=== PATIENT | female | born 1945 | race Caucasian/White ===

== ENCOUNTER 2022-11-16 21:30 | Emergency (ER) | payer MEDICARE, MEDICAID, SELFPAY ==
[2022-11-16 21:31] VITALS: BP 145/66; PULSE 85; RESP 16; TEMP 36.4; O2SAT 97; BMI 32.5
--- NOTE | 2022-11-16 21:42 | CTR_ITS ---
PROCEDURE INFORMATION: Exam: CT Head Without Contrast Exam date and time: 11/16/2022 9:52 PM Age: 77 years old Clinical indication: Injury or trauma; Laceration; Consciousness not specified; Without residual foreign body; Injury details: PT arrived via [facility] from [facility] with the C/O a fall. PT was found in the floor today by nursing staff with a lac to her forehead TECHNIQUE: Imaging protocol: Computed tomography of the head without contrast. Radiation optimization: All CT scans at this facility use at least one of these dose optimization techniques: automated exposure control; mA and/or kV adjustment per patient size (includes targeted exams where dose is matched to clinical indication); or iterative reconstruction. REPORTING DATA: Count of CT and Cardiac NM exams in prior 12 months: This patient has received 0 known CTs and 0 known cardiac nuclear medicine studies in the 12 months prior to the current study. COMPARISON: No relevant prior studies available. RADIATION DOSE METRICS: Total DLP (mGy-cm): 1137.68 FINDINGS: Brain: There is no intra or extra axial mass or collection noted. There is good valdovinos-white matter differentiation. There is no midline shift. There is evidence of cerebral atrophy with prominence of the sulci, this is age-appropriate. 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 There is calcification of the choroid plexus bilaterally, there is no intraventricular bleed. There is no evidence cerebellar herniation. Cerebral ventricles: The ventricles are prominent with no evidence of intraventricular bleed. The prominence is secondary to the cerebral atrophy. Paranasal sinuses: The visualized paranasal sinuses are well aerated. The mastoid air cells are aerated. The ossicles are normal. Mastoid air cells: See Paranasal sinuses finding. Orbital cavities: The globes are intact. Bones/joints: See Paranasal sinuses finding. Soft tissues: There is mild soft tissue swelling noted in the left frontal region. CT/CT head wo con* [id number] IMPRESSION: No evidence of acute intracranial disease
--- NOTE | 2022-11-16 21:44 | W.ED.FALL ---
HPI - Fall General: Chief Complaint: Fall Stated Complaint: FALL Time Seen by Provider: 11/16/22 21:34 Source: patient and EMS Mode of arrival: EMS Limitations: no limitations History of Present Illness: 77-year-old female is here from a shelter she had been fell on the floor after a fall she does have a laceration to her head complains of a slight headache unknown of had LOC she denies any pain elsewhere denies any neck pain or extremity pain. Full history from patient is difficult as she is demented Associated symptoms-after fall: Reports headache(s); Denies abdominal pain, chest pain or neck pain Review of Systems Const: Denies: fever(s) or chills Eyes: Denies: eye discomfort ENMT: Denies: throat pain or dental pain Card: Denies: chest pain Resp: Denies: dyspnea GI: Denies: abdominal pain, nausea, vomiting or diarrhea Musc: Denies: neck pain or back pain Skin/Breast: Denies: rash Neuro: Reports: headache(s) Physical Exam Const: COMMON NORMALS: no acute distress and healthy appearing; negative for patient oriented x3 HENMT: OTHER: 3 cm laceration to forehead Eye: COMMON NORMALS: Equal, round and reactive pupils present and EOMs intact bilaterally PUPIL: Yes Equal, round and reactive pupils present Neck/C-Spine: COMMON NORMALS: full ROM and supple CERVICAL SPINE: Yes cervical ROM normal, No pain with cervical ROM and No Cervical spine tenderness Chest: COMMONS NORMALS: normal inspection of the chest and normal palpation of entire chest wall Resp: COMMON NORMALS: normal respiratory effort, No retractions, No use of accessory muscles and clear to auscultation bilaterally AUSCULTATION: clear to auscultation bilaterally Cardio: COMMON NORMALS: regular rate, regular rhythm and No murmurs present (Cardio) RATE: regular rate RHYTHM: regular rhythm GI: COMMON NORMALS: Normal to inspection, nondistended, normoactive bowel sounds present, Soft to palpation, non-tender and no masses PALPATION: Yes Soft to palpation Extremity: COMMON NORMALS: normal to inspection and full ROM Neuro: COMMON NORMALS: moves all extremities and no focal motor deficits; negative for patient oriented x3 Psych: COMMON NORMALS: Normal thought process present and cooperative; negative for mental status grossly normal THOUGHT PROCESS: Normal thought process present Skin: COMMON NORMALS: no rashes or lesions noted and no wounds GENERAL SKIN EXAM: no rashes or lesions noted Procedures Laceration Laceration 1: Site: face Side (If applicable): left Size (cm): 3 Description: linear Depth: simple, single layer Pre-repair: wound explored and irrigated extensively Skin layer closed with: other (dermabond) Course Vital Signs: Vital signs: Vital Signs Temperature 97.5 F L 11/16/22 21:31 Pulse Rate 85 11/16/22 21:31 Respiratory Rate 16 11/16/22 21:31 Blood Pressure 145/66 11/16/22 21:31 Pulse Oximetry 97 11/16/22 21:31 Oxygen Delivery Me thod Room Air 11/16/22 21:31 MDM - Fall Medical Decision Making Patient presented head laceration from a fall head CT is normal did repair the laceration with tissue adhesive she is stable for discharge back to shelter Lab Data Radiology Impressions Head CT 11/16/22 21:42 IMPRESSION: No evidence of acute intracranial disease Discharge Plan Discharge Patient Disposition: Home Clinical Impression: Laceration of head, Fall Condition: Stable Prescriptions: No Action acetaminophen 650 mg PO Q4-5H PRN (Reason: Fever pain) bisacodyl 10 mg Suppository [place] PRN (Reason: Constipation) bisacodyl 5 mg Tablet,Delayed Release (Dr/Ec) 10 mg PO DAILY PRN (Reason: Constipation) citalopram 20 mg Tablet 20 mg PO DAILY docusate sodium 100 mg Tablet 100 mg PO DAILY Levemir FlexPen 100 unit/mL (3 mL) Insulin Pen 40 unit SUBCUT Rx Instructions: at bedtime lorazepam 0.5 mg Tablet 0.5 mg lovastatin 10 mg Tablet 5 mg PO DAILY metformin 1,000 mg Tablet 1,000 mg Milk of Magnesia 400 mg/5 mL Suspension 30 ml PO DAILY PRN (Reason: Constipation) Novolog PenFill U-100 Insulin 100 unit/mL Cartridge SUBCUT Rx Instructions: sliding scale before meals omeprazole 20 mg Capsule,Delayed Release(Dr/Ec) TwoCal HN Liquid 60 ea PO 3XD Discharge Orders: Discharge ED (Routine); Ordered 11/16/22 Ordered By: Madonna Ballard Referrals: Shikha Campbell MD [Primary Care Provider] - Discharge Diet: Advance as tolerated Discharge Activity: Resume usual activity Patient Instructions: Head Injury (ED) Coding Level of Care Code ED Coin Box Inspector for Chg Fwd
[2022-11-16 23:30] VITALS: BP 114/68; PULSE 98; O2SAT 97
[2022-11-17] VITALS: BP 131/60; PULSE 93; O2SAT 94
[2022-11-17 00:30] VITALS: BP 125/50; PULSE 93; O2SAT 95
[2022-11-17 01:00] VITALS: BP 137/74; PULSE 90; O2SAT 96
--- NOTE | 2022-11-17 01:07 | PC.NURSE ---
Pt report given to Debbie Gonzalez LPN at this time
== END 2022-11-17 03:54 | disposition home or self-care (01) ==
PROVIDERS: Emergency Provider Emergency Medicine; PCP Family Medicine
DX: S01.81XA Laceration without foreign body of other part of head, initial encounter (principal); W19.XXXA Unspecified fall, initial encounter; Y92.129 Unspecified place in nursing home as the place of occurrence of the external cause; Z79.4 Long term (current) use of insulin; Z79.84 Long term (current) use of oral hypoglycemic drugs
CPT/HCPCS: 12013; 70450; 99284

== ENCOUNTER → 2023-01-18 09:50 | Outpatient (BNVA) | payer MEDICARE, MEDICAID, SELFPAY | PROVIDERS: PCP Family Medicine; Visit Provider Podiatrist Foot & Ankle Surgery | DX: B35.1 Tinea unguium (principal); I73.9 Peripheral vascular disease, unspecified; M20.41 Other hammer toe(s) (acquired), right foot; M20.42 Other hammer toe(s) (acquired), left foot; G62.9 Polyneuropathy, unspecified; E11.42 Type 2 diabetes mellitus with diabetic polyneuropathy; Z79.84 Long term (current) use of oral hypoglycemic drugs; Z79.4 Long term (current) use of insulin | CPT/HCPCS: 11721; 99203 ==

== ENCOUNTER → 2023-03-22 08:14 | Outpatient (BNVA) | payer MEDICARE, MEDICAID, SELFPAY | PROVIDERS: PCP Family Medicine; Visit Provider Podiatrist Foot & Ankle Surgery | DX: B35.1 Tinea unguium (principal); I73.9 Peripheral vascular disease, unspecified; M20.41 Other hammer toe(s) (acquired), right foot; M20.42 Other hammer toe(s) (acquired), left foot; G62.9 Polyneuropathy, unspecified; E11.42 Type 2 diabetes mellitus with diabetic polyneuropathy; Z79.4 Long term (current) use of insulin | CPT/HCPCS: 11721 ==

== ENCOUNTER 2023-04-22 22:29 | Inpatient (IN) | payer MEDICARE, MEDICAID, SELFPAY ==
[2023-04-22 22:31] VITALS: BP 108/63; PULSE 105; RESP 20; TEMP 36.3; O2SAT 95; BMI 27.9
--- NOTE | 2023-04-22 22:34 | XRR_ITS ---
PROCEDURE INFORMATION: Exam: XR Chest Exam date and time: 04/22/2023 10:54 PM Age: 78 years old Clinical indication: Other: AMS TECHNIQUE: Imaging protocol: Radiologic exam of the chest. Views: 1 view. COMPARISON: No relevant prior studies available. FINDINGS: Lungs: Right lower lobe atelectasis versus infiltrate suspected. Pleural spaces: Unremarkable. No pleural effusion. No pneumothorax. Heart/Mediastinum: Large hiatal hernia suspected. Bones/joints: Unremarkable. XR/XR chest 1V portable [id number] IMPRESSION: 1. Large hiatal hernia suspected. 2. Right lower lobe atelectasis versus infiltrate suspected.
--- NOTE | 2023-04-22 22:41 | ED_ITS ---
HPI - Altered Mental Status 2 General: Chief Complaint: Altered Mental Status Stated Complaint: AMS Time Seen by Provider: 04/22/23 22:32 Limitations: altered mental status History of Present Illness: Patient presents to the ER with significantly altered mental status. Patient's alert to verbal stimuli but will not answer questions. Per EMS patient was diagnosed with a urinary tract infection approximately 2 weeks ago but is not been able to take her medicine due to being unable to swallow it. Patient has progressively gotten worse. Especially over the last 2 or 4 days. Per EMS she may have been got 1 dose of IM antibiotics sometime in the last 3 days. Review of Systems 2 General: Reports: ROS unobtainable due to mental status PFSH ED 2 PFSH: Medical History TIA (transient ischemic attack) Depression Anemia Dementia B12 deficiency Diabetes Physical Exam 2 Const: COMMON NORMALS: no acute distress, average body habitus and alert; limitations (Limited by mental status) HENMT: COMMON NORMALS: normocephalic, atraumatic, hearing grossly normal bilaterally, external ears normal and Normal external nose present; oral mucous membranes not moist (Very dry oral mucosa) HEAD & SCALP: n ormocephalic and atraumatic NOSE: Normal external nose present EXTERNAL EAR: Yes external ears normal Eye: COMMON NORMALS: Equal, round and reactive pupils present, EOMs intact bilaterally, conjunctivae normal and no scleral icterus CONJUNCTIVA: Yes conjunctivae normal PUPIL: Yes Equal, round and reactive pupils present Neck/C-Spine: COMMON NORMALS: full ROM, no lymphadenopathy, supple, no meningeal signs and no JVD Chest: COMMONS NORMALS: normal inspection of the chest and normal palpation of entire chest wall Resp: COMMON NORMALS: normal respiratory effort, No retractions, No use of accessory muscles and clear to auscultation bilaterally AUSCULTATION: clear to auscultation bilaterally Cardio: COMMON NORMALS: no JVD, regular rhythm, S1 normal heart sound present, S2 normal heart sound present, No gallops present (Cardio), No clicks present (Cardio), No murmurs present (Cardio) and No rub (Cardio); negative for regular rate (Slightly tachycardic) RATE: abnormal rate (Slightly tachycardic) RHYTHM: regular rhythm HEART SOUNDS: S1 normal heart sound present and S2 normal heart sound present GI: COMMON NORMALS: Normal to inspection, nondistended, normoactive bowel sounds present, Soft to palpation, non-tender, No hepatosplenomegaly present and no masses PALPATION: Yes Soft to palpation and Yes No hepatosplenomegaly present Neuro: SENSORIUM/ORIENTATION: Yes alert MENINGEAL SIGNS: Yes no meningeal signs Course 2 Vital Signs: Vital signs: Vital Signs Temperature 98.1 F 04/24/23 02:21 Pulse Rate 68 04/24/23 05:41 Respiratory Rate 16 04/23/23 20:00 Blood Pressure 122/56 04/23/23 14:45 Pulse Oximetry 100 04/23/23 20:00 Oxygen Delivery Me thod Room Air 04/23/23 20:00 MDM - Altered Mental Status Medical Decision Making Patient presented with altered mental status and a very dry oral cavity. Lab work was obtained which showed some significant abnormalities that included a sodium of 170, BUN/creatinine of 142/2.1, x-ray showed right lower lobe atelectasis versus infiltrate. UA was contaminated with epithelial cells. Dr. Hendrix was consulted who agreed to place the patient in the ICU for slow rehydration and correction of the hyponatremia. We will start D5 one half NS at 75 mL/h, we will consult nephrology, patient is a DNR. Nephrology was consulted Dr. Lashae Morales agreed with treatment plan and will see her in the morning. Differential Diagnosis Likely altered mental status; Unlikely alcoholic intoxication, delirium, dementia, hypoglycemia, hyponatremia, subarachnoid hemorrhage or sepsis Medical Records I reviewed the patient's medical records. Lab Data I reviewed the patient's lab results. 04/24/23 04:25 04/24/23 02:15 Radiology Impressions Chest X-Ray 04/22/23 22:34 IMPRESSION: 1. Large hiatal hernia suspected. 2. Right lower lobe atelectasis versus infiltrate suspected. Laboratory Results WBC 9.51 10^3/uL (3.29-11.43) 04/22/23 22:43 RBC 5.45 10^6/uL (3.85-5.65) 04/22/23 22:43 Hgb 15.00 g/dL (11.27-16.99) 04/22/23 22:43 Hct 50.2 % (36-47) H 04/22/23 22:43 MCV 92.1 fl (85-98) 12/21/23 22:43 MCH 27.5 pg (27-33) 04/22/23 22:43 MCHC 29.9 g/dL (30-55) L 04/22/23 22:43 RDW 14.9 % (12.1-15.1) 04/22/23 22:43 Plt Count 228 10^3/cmm (157-399) 04/22/23 22:43 MPV 12.9 fL (7.4-10.4) H 04/22/23 22:43 Neut % (Auto) 72.4 % 04/22/23 22:43 Lymph % (Auto) 16.3 % 04/22/23 22:43 [place] % (Auto) 9.8 % 04/22/23 22:43 Eos % (Auto) 0.4 % 04/22/23 22:43 Baso % (Auto) 0.8 % 04/22/23 22:43 Neut # (Auto) 6.88 10^3/uL (1.8-7.7) 04/22/23 22:43 Lymph # (Auto) 1.6 10^3/uL (0.8-4.8) 04/22/23 22:43 [place] # (Auto) 0.9 10^3/uL (0.2-0.9) 04/22/23 22:43 Eos # (Auto) 0.0 10^3/uL (0.0-0.8) 04/22/23 22:43 Baso # (Auto) 0.1 10^3/uL (0.0-0.1) 04/22/23 22:43 Nucleated RBC % (auto) 0 % 04/22/23 22:43 Nucleated RBCs # 0.0 /100WBC 04/22/23 22:43 Sodium 170 mmol/L (136-145) H* 04/23/23 00:52 Potassium 4.1 mmol/L (3.5-5.1) 04/22/23 22:43 Chloride 128 mmol/L (98-107) H 04/22/23 22:43 Carbon Dioxide 23 mmol/L (22-29) 04/22/23 22:43 Anion Gap 23.1 (5-19) H 04/22/23 22:43 BUN 142 mg/dL (8-23) H* 04/22/23 22:43 Creatinine 2.1 mg/dL (0.5-0.9) H 04/22/23 22:43 GFR Calculation Not Reportable 04/22/23 22:43 Glucose 255 mg/dL (65-115) H 04/22/23 22:43 Calculated Osmolality 405 mOsm/kg (285-295) H 04/22/23 22:43 Lactic Acid 2.3 mmol/L (0.5-2.2) H 04/22/23 22:43 Lactic Acid (Sepsis) 3.0 mmol/L (0.5-2.2) H 04/23/23 00:52 Uric Acid 15.4 mg/dL (2.4-5.7) H 04/23/23 00:52 Calcium 8.8 mg/dL (8.5-10.5) 04/22/23 22:43 Magnesium 2.9 mg/dL (1.7-2.3) H 04/22/23 22:43 Total Bilirubin 0.4 mg/dL (0.15-1.2) 04/22/23 22:43 AST 31 U/L (0-32) 04/22/23 22:43 ALT 29 U/L (0-33) 04/22/23 22:43 Alkaline Phosphatase 92 U/L (35-105) 04/22/23 22:43 Troponin T Baseline 53 ng/L (0-10) H 04/22/23 22:43 Troponin T 120 Minute 50.65 ng/L (0-10) H 04/23/23 00:52 Delta Troponin T -2.35 ABS# (0-10) L 04/23/23 00:52 Total Protein 7.2 g/dL (6.6-8.7) 04/22/23 22:43 Albumin 3.4 g/dL (3.5-5.2) L 04/22/23 22:43 Globulin 3.8 g/dL (1.3-4.6) 04/22/23 22:43 Vitamin B12 834 pg/mL (232-1245) 04/23/23 00:52 Procalcitonin 0.15 ng/mL (0-0.5) 04/22/23 22:43 TSH 0.44 uIU/mL (0.27-4.20) 04/23/23 00:52 Urine Color Yellow (Yellow) 04/22/23 23: Urine Appearance Cloudy (CLEAR) A 04/22/23 23: Urine pH 5 (5-7) 04/22/23 23:29 Ur Specific [place] 1.020 (1.005-1.030) 04/22/23 23:29 Urine Protein Neg (Negative) 04/22/23 23: Urine Glucose (UA) Norm (Normal) 04/22/23 23: Urine Ketones 1+ (Negative) H 04/22/23 23: Urine Blood 2+ (Negative) H 04/22/23 23: Urine Nitrate Negative (Negative) 04/22/23 23: Urine Bilirubin Neg (Negative) 04/22/23 23: Urine Urobilinogen Norm mg/dL (Negative) 04/22/23 23:29 Ur Leukocyte Esterase Trace (Negative) H 04/22/23 23:29 Urine RBC 0-4 /hpf (0-2) H 04/22/23 23:29 Urine WBC 10-15 /hpf (0-5) H 04/22/23 23:29 Ur Squamous Epith Cells 40-55 /hpf (0-5) H 04/22/23 23: Amorphous Sediment Not Reportable 04/22/23 23: Urine Bacteria 1+ /hpf (NONE) H 04/22/23 23:29 Ur Random Microalbumin 4 ug/dL (0-20) 04/23/23 01:20 Ur Random Sodium 59 mmol/L 04/23/23 01:20 Ur Random Chloride 13 mmol/L 04/23/23 01:20 Urine Creatinine 111 mg/dL (28-217) 04/23/23 01:20 Microalb/Creat Ratio 36 mg/dL (0-20) H 04/23/23 01:20 Urine Opiates Screen Negative ng/mL (Negative) 04/22/23 23: Ur Barbiturates Screen Negative ng/mL (Negative) 04/22/23 23:29 Ur Phencyclidine Scrn Negative ng/mL (Negative) 04/22/23 23:29 Ur Amphetamines Screen Negative ng/mL (Negative) 04/22/23 23:29 U Benzodiazepines Scrn Negative ng/mL (Negative) 04/22/23 23:29 Urine Cocaine Screen Negative ng/mL (Negative) 04/22/23 23:29 U Marijuana (THC) Screen Negative ng/mL (Negative) 04/22/23 23:29 All radiology interpretation(s) finalized by discharge EKG Data EKG 1: I personally reviewed and interpreted this EKG as follows: EKG interpretation date: 04/22/23 EKG interpretation time: 22:47 Prior EKG tracings: not available for review Interpretation: EKG shows ventricular rate 106 bpm, MI interval 135, QRS duration 124, QTc of 456, sinus tachycardia, right bundle branch block, Discharge Plan Discharge Patient Disposition: Admitted As Inpatient Admit Provider: Anaid Hendrix Clinical Impression: Acute hypernatremia, Dehydration, Acute renal insufficiency Altered mental status Qualifiers: Altered mental status type: delirium Qualified Code(s): R41.0 - Disorientation, unspecified Pneumonia Qualifiers: Pneumonia type: due to unspecified organism Laterality: right Lung location: l ower lobe of lung Qualified Code(s): J18.9 - Pneumonia, unspecified organism Condition: Stable Coding Level of Care Code ED Mill Feeder for Feliz Jarquin
--- NOTE | 2023-04-22 22:47 | ECG_ITS ---
[facility] Test Date: 2023-04-22 Pat Name: Debbie Jules Department: Room: Gender: Female Analyst Business Analysis: : 1945 Requested By: Tanner Hodge Order Number: [id number] Santy MD: Lia Davis M.D. Measurements Intervals [place] Rate: 106 P: 75 LA: 135 QRS: 84 QRSD: 124 T: -4 QT: 394 QTc: 526 Interpretive Statements SINUS TACHYCARDIA RIGHT BUNDLE BRANCH BLOCK [120+ ms QRS DURATION, UPRIGHT V1, 40+ ms S IN I/aVL/V4/V5/V6] No previous ECG available for comparison Electronically Signed On 04-23-2023 19:23:23 WAREHOUSE TEAM MEMBER by Lia Davis M.D. [id number]
[2023-04-22 22:48] LABS: Basophils # 0.1 10^3/uL (0.0-0.1); Basophils % 0.8 %; Eosinophils % 0.4 %; Hematocrit 50.2 % (36-47); Lymphocytes # 1.6 10^3/uL (0.8-4.8); Lymphocytes % 16.3 %; Mean Corpuscular HGB Conc 29.9 g/dL (30-55); Mean Corpuscular Hemoglobin 27.5 pg (27-33); Mean Corpuscular Volume 92.1 fl (85-98); Mean Platelet Volume 12.9 fL (7.4-10.4); Monocytes # 0.9 10^3/uL (0.2-0.9); Monocytes % 9.8 %; Neutrophils # 6.88 10^3/uL (1.8-7.7); Neutrophils % 72.4 %; Nucleated Red Blood Cells % 0 %; Platelet Count 228 10^3/cmm (157-399); Red Blood Count 5.45 10^6/uL (3.85-5.65); Red Cell Distribution Width 14.9 % (12.1-15.1); White Blood Count 9.51 10^3/uL (3.29-11.43)
[2023-04-22 23:05] VITALS: BP 103/67; PULSE 93; RESP 31; O2SAT 94
[2023-04-22] MEDS: sodium chloride 0.9% 1,000 ML 999 ML IV (23:08)
[2023-04-22 23:11] LABS: Troponin(5th) Baseline 53 ng/L (0-10)
[2023-04-22 23:13] LABS: Alanine Aminotransferase 29 U/L (0-33); Albumin Level 3.4 g/dL (3.5-5.2); Alkaline Phosphatase 92 U/L (35-105); Anion Gap 23.1 (5-19); Aspartate Amino Transferase 31 U/L (0-32); Calcium 8.8 mg/dL (8.5-10.5); Carbon Dioxide 23 mmol/L (22-29); Chloride 128 mmol/L (98-107); Globulin 3.8 g/dL (1.3-4.6); Glucose 255 mg/dL (65-115); Magnesium 2.9 mg/dL (1.7-2.3); Potassium 4.1 mmol/L (3.5-5.1); Total Bilirubin 0.4 mg/dL (0.15-1.2); Total Protein 7.2 g/dL (6.6-8.7)
[2023-04-22 23:14] LABS: Lactic Sepsis W/Reflex 2.3 mmol/L (0.5-2.2)
[2023-04-22 23:15] LABS: Sodium 170 mmol/L (136-145)
[2023-04-22 23:19] LABS: Procalcitonin 0.15 ng/mL (0-0.5)
[2023-04-22 23:25] LABS: Osmolality Calculated 405 mOsm/kg (285-295)
[2023-04-22 23:26] LABS: Blood Urea Nitrogen 142 mg/dL (8-23)
--- NOTE | 2023-04-22 23:47 | PC.NURSE ---
Spoke with this patient's nurse at [facility], Mable Bojorquez. Nurse states that patient has been having poor oral intake, and has been poorly taken her meds since 04/19. Also reports that blood sugar has been in the 400s, but has been receiving diabetic pills to treat the hyperglycemia. NE nurse told this nurse that she would call back for regular updates.
[2023-04-23] VITALS (76 sets, daily range): BP systolic 88–137; BP diastolic 45–87; PULSE 72–102; RESP 12–24; TEMP 35.9–37.1; O2SAT 93–100; BMI 28.7
[2023-04-23 00:07] LABS: Add Urine Microscopic? YES; Bilirubin Urine Neg (Negative); Blood Urine 2+ (Negative); Glucose Urine UA Norm (Normal); Ketones Urine 1+ (Negative); Leukocyte Esterase Urine Trace (Negative); Nitrate Urine Negative (Negative); Protein Urine Neg (Negative); Urine Appearance Cloudy (CLEAR); Urine Color Yellow (Yellow); Urobilinogen Urine Norm (Negative); pH Urine 5 (5-7)
[2023-04-23 00:08] LABS: Bacteria Urine 1+ /hpf; RBC Urine 0-4 /hpf (0-2); Squamous Epithelial Cell Urine 40-55 /hpf (0-5)
[2023-04-23 00:10] LABS: Add Urine Culture? No; Amphetamines Screen Urine Negative (Negative); Barbiturates Screen Urine Negative (Negative); Benzodiazepines Screen Urine Negative (Negative); Cocaine Screen Urine Negative (Negative); Opiate Screen Urine Negative (Negative); PCP Screen Urine Negative (Negative); THC Screen Urine Negative (Negative)
[2023-04-23] MEDS: piperacillin-tazobactam 3.375 GM in sodium chloride 0.9% (plus) 50 ML IV ×2 (00:15→07:20)
--- NOTE | 2023-04-23 00:28 | P.HP_ITS ---
Providers/Chief Complaint 2 Primary Care Provider: Shikha Campbell MD Chief Complaint: AMS History of Present Illness Debbie Jules is a 78 year old female with history of dementia, diabetes, recurrent UTI, low vitamin B12, resident of [facility], presented with chief complaint of unresponsiveness. As per the care home patient has not been eating well for last 5 to 6 days, on she was diagnosed with UTI she was given intramuscular antibiotic for cystitis, her blood work on 04/01 showed sodium within normal range, in the ER patient has nonpurposeful movement of her extremities, she will look at you make eye contact but would not be able to comprehend commands, she is moaning, in the ER her workup showed severe dehydration, hypernatremia with hyperchloremia, signs of UTI, patient has been given fluid bolus along antibiotics I requested ER physician to start D5 half-normal saline and nephro consultation Patient is DNR/DNI No family at the bedside Review of Systems 2 General: Reports: ROS unobtainable due to medical condition and ROS unobtainable due to mental status Medications/Allergies Home Medications Medication Instructions Recorded Confirmed Last Taken Type acetaminophen 650 mg PO Q4-5H PRN Fever pain 11/16/22 03/22/23 Unknown History bisacodyl 10 mg rectal suppository mg DC PRN Constipation 11/16/22 03/22/23 Unknown History bisacodyl 5 mg tablet,delayed 10 mg PO DAILY PRN Constipation 11/16/22 03/22/23 Unknown History release citalopram 20 mg tablet 20 mg PO DAILY 11/16/22 03/22/23 Unknown History docusate sodium 100 mg tablet 100 mg PO DAILY 11/16/22 03/22/23 Unknown History food supplemt, lactose-reduced 60 ea PO 3XD 11/16/22 03/22/23 Unknown History insulin aspart U-100 100 unit/mL SUBCUT 11/16/22 03/22/23 Unknown History subcutaneous cartridge (Novolog PenFill U-100 Insulin aspart) insulin detemir U-100 100 unit/mL 40 unit SUBCUT 11/16/22 03/22/23 Unknown History (3 mL) subcutaneous pen (Levemir FlexPen) lorazepam 0.5 mg tablet 0.5 mg anxiety 11/16/22 03/22/23 Unknown History lovastatin 10 mg tablet 5 mg PO DAILY 11/16/22 03/22/23 Unknown History magnesium hydroxide 400 mg/5 mL 30 ml PO DAILY PRN Constipation 11/16/22 03/22/23 Unknown History oral suspension (Milk of Magnesia) metformin 1,000 mg tablet 1,000 mg 11/16/22 03/22/23 Unknown History omeprazole 20 mg capsule,delayed mg 11/16/22 03/22/23 Unknown History release Allergies Allergy/AdvReac Type Severity Reaction Status Date / Time cephalexin [From Keflex] Allergy Unknown Verified 03/22/23 08:45 PFSH Acute 2 PFSH: Medical History TIA (transient ischemic attack) Depression Anemia Dementia B12 deficiency Diabetes Vitals/I&O/Wt Last Vital Signs Temp 97.4 F L 04/22/23 22:31 Pulse 102 H 04/23/23 00:21 Resp 12 04/23/23 00:21 BP 96/52 04/23/23 00:21 Pulse Ox 99 04/23/23 00:21 O2 Del Method Room Air 04/23/23 00:21 04/22/23 04/22/23 04/23/23 14:59 22:59 06:59 Intake Total 1000 / 1000 Balance 1000 / 1000 Weight last 48 hrs Weight 76.204 kg Physical Exam 2 Narrative: Patient extremely dehydrated Dry mucous membranes Sunken eyes Dry lips and tongue Nonpurposeful movement of extremities Pupils are constricted Patient making incomprehensible sounds Not able to comprehend verbal commands S1, S2 Currently on room air Dehydrated and hypotensive No active audible stridor or wheezing Data 04/22/23 22:43 04/22/23 22:43 A&P Assessment and plan (1) LELE (acute kidney injury): (2) Acute renal insufficiency: (3) Dehydration: (4) Acute hypernatremia: (5) Altered mental status: Qualifiers: Altered mental status type: delirium Qualified Code(s): R41.0 - Disorientation, unspecified (6) Pneumonia: Qualifiers: Laterality: right Lung location: lower lobe of lung Pneumonia type: d ue to unspecified organism Qualified Code(s): J18.9 - Pneumonia, unspecified organism (7) UTI (urinary tract infection): Plan Metabolic encephalopathy related to dehydration and hypernatremia With such high sodium level of 170 I will like to consult nephrology Start D5 half-normal saline check sodium level every 4 hours Free water deficit 3.3 L Will request TSH, B12, urine and serum osmolality Will request urine sodium and creatinine ratio Aspiration pneumonia and UTI I will keep patient on Zosyn for now Patient is afebrile Hypotension related to hypovolemia Continue IV fluid hydration Hypernatremia hypovolemia Target sodium correction 6 to 8 mmol/ 24 hours Will follow-up with nephro recommendations DNR/DNI History of dementia Carries a guarded prognosis Will place Wynne catheter for accurate urine output Monitor sugar as patient carries history of type 2 diabetes Patient not able to provide history, most of the information taken from the ER physician, collaterals and documentation sent from the care home with the care No family at the bedside Nephro consultation, spoke with the ER physician as well Self interpretation of chest x-ray: Concern for aspiration pneumonia right lower lobe infiltrate Attestations 2 Medical Necessity Statement*: More than 2 midnights anticipated she will need ICU for management of severe dehydration and hypernatremia Coding Level of Care Code Critical Care >/= 30 minutes Critical care time (in minutes): 45 The high probability of a clinically significant, sudden or life threatening deterioration, as referenced in this documentation, required my full and direct attention, intervention and personal management. The critical care time shown is in addition to time spent performing any reported separately billable procedures and includes the following: [x] Data and vital sign review and interpretation [x ] Patient assessment, examination and intervention [x] Medication orders and management [x] Patient/Family updates as able [x] Care Coordination and Documentation. Diagnoses LELE (acute kidney injury) N17.9 Acute renal insufficiency N28.9 Dehydration E86.0 Acute hypernatremia E87.0 Altered mental status R41.0 Altered mental status type: delirium Pneumonia J18.9 Laterality: right Lung location: lower lobe of lung Pneumonia type: due to unspecified organism UTI (urinary tract infection) N39.0
[2023-04-23 00:33] LABS: Reflex Lactate Order REFLEX LACTIC ORDERD
[2023-04-23] MEDS: dextrose 5%-sod chloride 0.45% 1,000 ML 75 ML IV (00:45)
[2023-04-23 01:15] LABS: Troponin 5 2HR 50.65 ng/L (0-10)
[2023-04-23 01:16] LABS: Troponin 5 2HR Delta -2.35 ABS# (0-10)
[2023-04-23 01:17] LABS: Uric Acid 15.4 mg/dL (2.4-5.7)
[2023-04-23 01:18] LABS: Sodium 170 mmol/L (136-145)
[2023-04-23 01:43] LABS: Urine Random Sodium 59 mmol/L
[2023-04-23 01:44] LABS: Urine Random Chloride 13 mmol/L
[2023-04-23 01:48] LABS: Creatinine Urine, Random 111 mg/dL (28-217); Microalbum Creatinine Ratio Ur 36 mg/dL (0-20); Microalbumin Random Urine 4 ug/dL (0-20)
[2023-04-23 01:57] LABS: Thyroid Stimulating Hormone 0.44 uIU/mL (0.27-4.20); Vitamin B12 834 pg/mL (232-1245)
[2023-04-23] MEDS: lactated ringers 1,000 ML 999 ML IV (02:06)
[2023-04-23 04:24] LABS: Basophils # 0.1 10^3/uL (0.0-0.1); Basophils % 0.8 %; Eosinophils % 0.3 %; Hematocrit 49.1 % (36-47); Lymphocytes # 1.6 10^3/uL (0.8-4.8); Lymphocytes % 18.2 %; Mean Corpuscular HGB Conc 28.7 g/dL (30-55); Mean Corpuscular Hemoglobin 27.8 pg (27-33); Mean Corpuscular Volume 96.7 fl (85-98); Mean Platelet Volume 13.2 fL (7.4-10.4); Monocytes # 0.7 10^3/uL (0.2-0.9); Monocytes % 7.6 %; Neutrophils # 6.39 10^3/uL (1.8-7.7); Neutrophils % 72.8 %; Nucleated Red Blood Cells % 0 %; Platelet Count 177 10^3/cmm (157-399); Red Blood Count 5.08 10^6/uL (3.85-5.65); Red Cell Distribution Width 14.9 % (12.1-15.1); White Blood Count 8.79 10^3/uL (3.29-11.43)
[2023-04-23 04:44] LABS: Troponin 5 6HR 44.91 ng/L (0-10)
[2023-04-23 04:45] LABS: Magnesium 2.8 mg/dL (1.7-2.3); Phosphorus 4.3 mg/dL (2.5-4.5)
[2023-04-23 04:47] LABS: Troponin 5 6HR Delta -8.09 ng/L (0-12)
[2023-04-23 04:48] LABS: Sodium 169 mmol/L (136-145)
--- NOTE | 2023-04-23 05:12 | P.CONIM_ITS ---
Providers/Reason For Consult 2 Consulting Physician/Specialty*: Marie Morales DO, telenephrology Reason for Consult*: Hypernatremia, acute kidney injury Requesting Physician: Acute kidney injury, electrolyte imbalance Attending Physician: Anaid Hendrix MD Primary Care Provider: Shikha Campbell MD History of Present Illness History of Present Illness Debbie Jules is a 78 year old female present from [facility] after no oral intake for several days, possible urosepsis. Review of Systems 2 General: Reports: ROS unobtainable due to mental status Medications/Allergies Home Medications Medication Instructions Recorded Confirmed Last Taken Type bisacodyl 10 mg rectal suppository 10 mg IL Q12H PRN Constipation 11/16/22 04/23/23 Unknown History bisacodyl 5 mg tablet,delayed 10 mg PO DAILY PRN Constipation 11/16/22 04/23/23 Unknown History release docusate sodium 100 mg tablet 200 mg PO DAILY PRN Constipation 11/16/22 04/23/23 Unknown History food supplemt, lactose-reduced 60 ea PO 3XD 11/16/22 04/23/23 04/22/23 History insulin detemir U-100 100 unit/mL 30 unit SUBCUT BEDTIME 11/16/22 04/23/23 04/22/23 History (3 mL) subcutaneous pen (Levemir FlexPen) lorazepam 0.5 mg tablet 0.5 mg PO DAILY PRN anxiety 11/16/22 04/23/23 04/22/23 History lovastatin 10 mg tablet 5 mg PO DAILY 11/16/22 04/23/23 04/22/23 History magnesium hydroxide 400 mg/5 mL 30 ml PO DAILY PRN Constipation 11/16/22 04/23/23 Unknown History oral suspension (Milk of Magnesia) omeprazole 20 mg capsule,delayed 20 mg PO QAM 11/16/22 04/23/23 04/22/23 History release acetaminophen 325 mg tablet 650 mg PO Q4H PRN Pain 04/23/23 04/23/23 Unknown History ertapenem 1 gram solution for 1 g IM DAILY 04/23/23 04/23/23 04/22/23 History injection lactase 3,000 unit tablet (Lactaid) 1 unit PO TID 04/23/23 04/23/23 04/22/23 History metformin 500 mg tablet,extended 1,000 mg PO BEDTIME 04/23/23 04/23/23 04/22/23 History release 24 hr nystatin 100,000 unit/gram topical See Rx Instructions .Route .COMPLEX 04/23/23 04/23/23 04/22/23 History powder (Nyamy) sitagliptin phosphate 50 mg tablet 50 mg PO DAILY 04/23/23 04/23/23 04/22/23 History (Januvia) Allergies Allergy/AdvReac Type Severity Reaction Status Date / Time cephalexin [From Keflex] Allergy Unknown Verified 03/22/23 08:45 Current Medications Generic Name Dose Route Start Last Admin Trade Name Freq PRN Reason Stop Dose Admin Dextrose/Sodium Chloride 1,000 mls @ 75 mls/hr 04/23/23 00:30 04/23/23 00:45 Dextrose 5%-Sod Chloride 0.45% IV 75 mls/hr .[id number] MILLER Administration PFSH Acute 2 PFSH: Medical History TIA (transient ischemic attack) Depression Anemia Dementia B12 deficiency Diabetes Vitals/I&O/Wt Last Vital Signs Temp 97.4 F L 04/22/23 22:31 Pulse 79 04/23/23 03:40 Resp 20 H 04/23/23 03:40 BP 106/53 04/23/23 03:40 Pulse Ox 96 04/23/23 03:40 O2 Del Method Room Air 04/23/23 03:40 04/22/23 04/22/23 04/23/23 14:59 22:59 06:59 Intake Total 2049 Balance 2049 Weight last 48 hrs Weight 76.204 kg Physical Exam 2 Urinary Catheter Management: Wynne: Cath Placed During This Visit: yes Urinary Catheter Date of Insertion: 04/23/23 Urinary Catheter Time of Insertion: 01:21 Data 04/23/23 04:08 04/23/23 17:18 Other Labs: urine sodium 59, lactic acid 3, uric acid 15.4, LFT normal Ca 8.8, phos 4.3, Mg 2.8, albumi 3.4, CK 200 CXR: Radiologist's impression: 1. Large hiatal hernia suspected. 2. Right lower lobe atelectasis versus infiltrate suspected. Other data: seen via telemedicine with assistance of RN at bedside A&P Assessment and plan (1) LELE (acute kidney injury): Plan 1. Acute oliguric kidney injury due to volume depletion and hypotension. Renal function improving 2. Hypernatremia, hypovolemic, minimal improvement after 3L + 3. UTI, possible pneumonia 4. Hyperglycemia, recommend insulin sliding scale recommend: change to D5W, 1 liter at 150 ml/hr, then return to 1/2 NSS Consult Attestations 2 Medical Necessity Statement: see above Time Spent in Patient Care: 16 - 35 minutes Coding Level of Care Code Acute Code for [facility] Diagnoses LELE (acute kidney injury) N17.9
[2023-04-23] MEDS: heparin 5,000 unit/mL INJ 1 mL 5000 UNIT SUBCUT ×2 (05:49→17:55)
--- NOTE | 2023-04-23 07:40 | PC.NURSE ---
timmy documented vitals every 5 minutes when pulling vitals off of the monitor. pts vitals stable at this time with no further orders
[2023-04-23 09:33] LABS: Sodium 166 mmol/L (136-145)
[2023-04-23] MEDS: meropenem 1,000 MG in sodium chloride 0.9% (plus) 50 ML 100 MG IV ×2 (10:49→17:56)
[2023-04-23 11:55] LABS: Glucose Point of Care 419 mg/dL (70-110)
[2023-04-23] MEDS: sodium chloride 0.45% 1,000 ML 75 ML IV (12:08)
[2023-04-23] MEDS: insulin lispro 100 unit/1 mL SUBCUT ×2 (12:12→17:55)
[2023-04-23 12:42] LABS: Sodium 167 mmol/L (136-145)
[2023-04-23 14:31] LABS: Glucose Point of Care 248 mg/dL (70-110)
[2023-04-23 14:46] LABS: Calcium 8.5 mg/dL (8.5-10.5); Carbon Dioxide 22 mmol/L (22-29); Chloride 128 mmol/L (98-107); Creatine Phosphokinase 161 U/L (26-192); Glucose 439 mg/dL (65-115); Osmolality Calculated 395 mOsm/kg (285-295)
[2023-04-23 14:53] LABS: Anion Gap 20.3 (5-19); Potassium 4.3 mmol/L (3.5-5.1)
[2023-04-23 14:54] LABS: Blood Urea Nitrogen 108 mg/dL (8-23); Sodium 166 mmol/L (136-145)
[2023-04-23 17:25] LABS: Glucose Point of Care 227 mg/dL (70-110)
--- NOTE | 2023-04-23 17:27 | P.PN_ITS ---
Subjective 2 Subjective: Patient was seen this morning currently in the emergency room, awaiting ICU bed, she is not responsive, she does not wake up, she moans and groans, but does not produce sensible speech, currently afebrile, normotensive, on room air, serum sodiums remained at 166 Vitals/I&O/Wt Last Vital Signs Temp 96.6 F L 04/23/23 13:56 Pulse 78 04/23/23 14:45 Resp 23 H 04/23/23 14:00 BP 122/56 04/23/23 14:45 Pulse Ox 97 04/23/23 14:45 O2 Del Method Room Air 04/23/23 14:45 04/23/23 04/23/23 04/23/23 06:59 14:59 22:59 Intake Total 2049 1108.75 / 1108.75 Balance 2049 1108.75 / 1108.75 Weight last 48 hrs Weight 78.199 kg Weight 76.204 kg Physical Exam 2 Const: COMMON NORMALS: no acute distress EXAM LIMITATIONS: altered mental status ORIENTATION/CONSCIOUSNESS: Yes awake and Yes confused; not oriented to person, not oriented to place and not oriented to time Resp: COMMON NORMALS: normal respiratory effort, No retractions, No use of accessory muscles and clear to auscultation bilaterally AUSCULTATION: clear to auscultation bilaterally Cardio: COMMON NORMALS: regular rate, regular rhythm, S1 normal heart sound present and S2 normal heart sound present RATE: regular rate RHYTHM: r egular rhythm HEART SOUNDS: S1 normal heart sound present and S2 normal heart sound present GI: COMMON NORMALS: Normal to inspection, nondistended, normoactive bowel sounds present and non-tender Extremity: COMMON NORMALS: no pedal edema Neuro: SENSORIUM/ORIENTATION: No oriented to person, No oriented to place and No oriented to time Urinary Catheter Management: Wynne: Cath Placed During This Visit: yes Reason for Continuing Indwelling Catheter: Accurate Measurement of Urinary Output in Critically Ill Patients Urinary Catheter Date of Insertion: 04/23/23 Urinary Catheter Time of Insertion: 01:21 Data 04/23/23 04:08 04/23/23 12:05 A&P Assessment and plan (1) LELE (acute kidney injury): (2) Acute renal insufficiency: (3) Dehydration: (4) Acute hypernatremia: (5) Altered mental status: Qualifiers: Altered mental status type: delirium Qualified Code(s): R41.0 - Disorientation, unspecified (6) Pneumonia: Qualifiers: Laterality: right Lung location: lower lobe of lung Pneumonia type: d ue to unspecified organism Qualified Code(s): J18.9 - Pneumonia, unspecified organism (7) UTI (urinary tract infection): Plan Metabolic encephalopathy related to dehydration and hypernatremia and uti and uremia With such high sodium level of 166 I will like to consult nephrology Start half-normal saline check sodium level every 4 hours Free water deficit 3.3 L urine and serum osmolality Will request urine sodium and creatinine ratio UREMIA -monitor LELE -monitor Aspiration pneumonia and UTI -meropenem -npo Patient is afebrile Hypotension related to hypovolemia Continue IV fluid hydration Hypernatremia hypovolemia Target sodium correction 6 to 8 mmol/ 24 hours Will follow-up with nephro recommendations DNR/DNI History of dementia Carries a guarded prognosis Will place Wynne catheter for accurate urine output Monitor sugar as patient carries history of type 2 diabetes Patient not able to provide history, most of the information taken from the ER physician, collaterals and [facility] with [facility] No family at the bedside Nephro consultation, spoke with the ER physician as well Attestations 2 Medical Necessity Statement*: Patient requires hospitalization for hyponatremia, aspiration pneumonia, UTI Diagnoses LELE (acute kidney injury) N17.9 Acute renal insufficiency N28.9 Dehydration E86.0 Acute hypernatremia E87.0 Altered mental status R41.0 Altered mental status type: delirium Pneumonia J18.9 Laterality: right Lung location: lower lobe of lung Pneumonia type: due to unspecified organism UTI (urinary tract infection) N39.0
[2023-04-23 18:05] LABS: Sodium 166 mmol/L (136-145)
--- NOTE | 2023-04-23 18:25 | PC.NURSE ---
admission assessment: Per Daughter, DPLANI Jules. Pt does not walk, they use a sit to stand to transfer her to / at [facility]. She does try to roll out of bed to the right, they have the bed against the wall and a surya on the floor for her. Pt is mostly non verbal. Does not have dentures. She needs full assistance at meal times.
--- NOTE | 2023-04-23 18:28 | PC.NURSE ---
Shift summary: Pt has rested in bed since arrival to ICU. She has not attempted to roll out of the bed. VSS. She has nodded yes to being cold, so warm blankets were provided. Her face washed and oral care provided. She coughed after sucking on oral sponge. Sinus rhythm remains on the monitor. She had 775 of yellow urine with sediment . NO BMs noted. Skin good, she has 2 old scabs on right elbow. Her left knee was slightly mottled this afternoon.
[2023-04-23 19:40] LABS: Calcium 8.7 mg/dL (8.5-10.5); Carbon Dioxide 24 mmol/L (22-29); Chloride 131 mmol/L (98-107); Glucose 211 mg/dL (65-115); Osmolality Calculated 381 mOsm/kg (285-295)
[2023-04-23 19:48] LABS: Anion Gap 15.9 (5-19); Potassium 3.9 mmol/L (3.5-5.1)
[2023-04-23 19:49] LABS: Sodium 167 mmol/L (136-145)
[2023-04-23 19:50] LABS: Blood Urea Nitrogen 98 mg/dL (8-23)
[2023-04-23 20:12] LABS: Creatine Phosphokinase 200 U/L (26-192)
[2023-04-23] MEDS: sodium chloride 0.45% 1,000 ML 125 ML IV (20:15)
[2023-04-23 20:49] LABS: Glucose Point of Care 139 mg/dL (70-110)
[2023-04-23] MEDS: dextrose 5% 1,000 ML 150 ML IV (21:09)
--- NOTE | 2023-04-23 21:17 | PC.NURSE ---
Received call from Dr. Morales. She cancelled next 2 sodium levels (ordered as q4hr) and get a sodium level morning lab. Lab services contacted with this update.
--- NOTE | 2023-04-23 23:55 | PC.NURSE ---
Patient is calm, asleep and not pulling on tubes and lines as she was earlier
[2023-04-24] VITALS (9 sets, daily range): BP systolic 99–136; BP diastolic 45–56; PULSE 65–76; RESP 12–23; TEMP 36.2–36.7; O2SAT 91–97
[2023-04-24] MEDS: meropenem 1,000 MG in sodium chloride 0.9% (plus) 50 ML 100 MG IV ×3 (01:04→16:46)
[2023-04-24 02:57] LABS: Sodium 165 mmol/L (136-145)
[2023-04-24 04:58] LABS: Basophils # 0.1 10^3/uL (0.0-0.1); Eosinophils # 0.2 10^3/uL (0.0-0.8); Eosinophils % 2.7 %; Hematocrit 45.8 % (36-47); Lymphocytes # 1.6 10^3/uL (0.8-4.8); Lymphocytes % 24.6 %; Mean Corpuscular HGB Conc 28.2 g/dL (30-55); Mean Corpuscular Hemoglobin 27.8 pg (27-33); Mean Corpuscular Volume 98.7 fl (85-98); Mean Platelet Volume 13.3 fL (7.4-10.4); Monocytes # 0.6 10^3/uL (0.2-0.9); Neutrophils # 3.92 10^3/uL (1.8-7.7); Neutrophils % 62.2 %; Nucleated Red Blood Cells % 0 %; Platelet Count 168 10^3/cmm (157-399); Red Blood Count 4.64 10^6/uL (3.85-5.65); Red Cell Distribution Width 15.1 % (12.1-15.1)
[2023-04-24 05:06] LABS: Alanine Aminotransferase 23 U/L (0-33); Albumin Level 2.9 g/dL (3.5-5.2); Alkaline Phosphatase 78 U/L (35-105); Calcium 8.5 mg/dL (8.5-10.5); Carbon Dioxide 26 mmol/L (22-29); Chloride 132 mmol/L (98-107); Globulin 3.6 g/dL (1.3-4.6); Glucose 220 mg/dL (65-115); Magnesium 2.6 mg/dL (1.7-2.3); Osmolality Calculated 376 mOsm/kg (285-295); Phosphorus 2.1 mg/dL (2.5-4.5); Total Bilirubin 0.5 mg/dL (0.15-1.2); Total Protein 6.5 g/dL (6.6-8.7)
[2023-04-24 05:16] LABS: Anion Gap 12.6 (5-19); Aspartate Amino Transferase 25 U/L (0-32); Potassium 3.6 mmol/L (3.5-5.1)
[2023-04-24 05:17] LABS: Blood Urea Nitrogen 83 mg/dL (8-23); Sodium 167 mmol/L (136-145)
[2023-04-24] MEDS: dextrose 5% 1,000 ML 150 ML IV ×2 (05:47→17:58)
[2023-04-24] MEDS: heparin 5,000 unit/mL INJ 1 mL 5000 UNIT SUBCUT ×2 (06:05→16:46)
--- NOTE | 2023-04-24 06:59 | P.PN_ITS ---
Subjective 2 Subjective: aggitated, tearful, nonverbal Vitals/I&O/Wt Last Vital Signs Temp 98.1 F 04/24/23 02:21 Pulse 68 04/24/23 05:41 Resp 16 04/23/23 20:00 BP 122/56 04/23/23 14:45 Pulse Ox 100 04/23/23 20:00 O2 Del Method Room Air 04/23/23 20:00 04/23/23 04/23/23 04/24/23 14:59 22:59 06:59 Intake Total 1108.75 / 1108.75 810.417 / 8867.637 8432 / 2969.167 Output Total 950 / 950 250 / 1200 Balance 1108.75 / 1108.75 -139.583 / 969.167 800 / 1769.167 Weight last 48 hrs Weight 78.608 kg Weight 78.199 kg Weight 76.204 kg Physical Exam 2 Urinary Catheter Management: Wynne: Cath Placed During This Visit: yes Reason for Continuing Indwelling Catheter: Accurate Measurement of Urinary Output in Critically Ill Patients Urinary Catheter Date of Insertion: 04/23/23 Urinary Catheter Time of Insertion: 01:21 Data 04/24/23 04:25 04/24/23 09:33 Other Labs: Ca 8.5, phos 2.1, Mg 2.6, alb 2.9 Other data: seen via telemedicine with assistance of RN at bedside A&P Assessment and plan (1) LELE (acute kidney injury): Plan 1. Acute oliguric kidney injury due to volume depletion and hypotension. Good urine outout, renal function improving 2. Hypernatremia, hypovolemic, improved 3. UTI, possible pneumonia 4. Hyperglycemia, on regular insulin sliding scale 5. Hypophosphatemia, begin oral Kphos elixir recommend: can discontinue D5W and return to 1/2 NSS. Decrease frequency electrolyte lab draw Attestations 2 Medical Necessity Statement*: see above Time Spent in Patient Care: 16 - 35 minutes Coding Level of Care Code Acute Code for Chg Fwd Diagnoses LELE (acute kidney injury) N17.9
[2023-04-24 08:00] LABS: Glucose Point of Care 264 mg/dL (70-110)
[2023-04-24] MEDS: insulin lispro 100 unit/1 mL SUBCUT ×2 (08:40→12:22)
[2023-04-24 10:00] LABS: Sodium 158 mmol/L (136-145)
--- NOTE | 2023-04-24 12:03 | P.PN_ITS ---
Subjective 2 Subjective: Patient was seen this morning, remains encephalopathic, with underlying dementia, does not follow commands, Vitals/I&O/Wt Last Vital Signs Temp 98.1 F 04/24/23 02:21 Pulse 69 04/24/23 09:54 Resp 16 04/24/23 09:54 BP 122/56 04/23/23 14:45 Pulse Ox 95 04/24/23 09:54 O2 Del Method Room Air 04/24/23 09:54 04/23/23 04/24/23 04/24/23 22:59 06:59 14:59 Intake Total 810.417 / 3736.361 0918 / 2969.167 50 / 50 Output Total 950 / 950 250 / 1200 Balance -139.583 / 969.167 800 / 1769.167 50 / 50 Weight last 48 hrs Weight 78.608 kg Weight 78.199 kg Weight 76.204 kg Physical Exam 2 Const: COMMON NORMALS: no acute distress ORIENTATION/CONSCIOUSNESS: Yes awake and Yes confused; not oriented to person, not oriented to place and not oriented to time Resp: COMMON NORMALS: normal respiratory effort, No retractions, No use of accessory muscles and clear to auscultation bilaterally AUSCULTATION: clear to auscultation bilaterally Cardio: COMMON NORMALS: regular rate, regular rhythm, S1 normal heart sound present and S2 normal heart sound present RATE: regular rate RHYTHM: r egular rhythm HEART SOUNDS: S1 normal heart sound present and S2 normal heart sound present GI: COMMON NORMALS: Normal to inspection, nondistended, normoactive bowel sounds present and non-tender Extremity: COMMON NORMALS: no pedal edema Neuro: SENSORIUM/ORIENTATION: No oriented to person, No oriented to place and No oriented to time Urinary Catheter Management: Wynne: Cath Placed During This Visit: yes Reason for Continuing Indwelling Catheter: Accurate Measurement of Urinary Output in Critically Ill Patients Urinary Catheter Date of Insertion: 04/23/23 Urinary Catheter Time of Insertion: 01:21 Data 04/24/23 04:25 04/24/23 09:33 A&P Assessment and plan (1) LELE (acute kidney injury): (2) Acute renal insufficiency: (3) Dehydration: (4) Acute hypernatremia: (5) Altered mental status: Qualifiers: Altered mental status type: delirium Qualified Code(s): R41.0 - Disorientation, unspecified (6) Pneumonia: Qualifiers: Laterality: right Lung location: lower lobe of lung Pneumonia type: d ue to unspecified organism Qualified Code(s): J18.9 - Pneumonia, unspecified organism (7) UTI (urinary tract infection): Plan Metabolic encephalopathy related to dehydration and hypernatremia and uti and uremia Serum sodiums today 165 Currently on D5 water at 150 cc an hour monitor serum sodium every 4 hours Nephrology on consult Free water deficit 3.3 L urine and serum osmolality Will request urine sodium and creatinine ratio UREMIA -monitor LELE -monitor Aspiration pneumonia and UTI -meropenem -npo Patient is afebrile Hypotension related to hypovolemia Continue IV fluid hydration Hypernatremia hypovolemia Target sodium correction 6 to 8 mmol/ 24 hours Will follow-up with nephro recommendations Speech therapy eval, dysphagia diet DNR/DNI History of dementia Carries a guarded prognosis Will place Wynne catheter for accurate urine output Monitor sugar as patient carries history of type 2 diabetes Attestations 2 Medical Necessity Statement*: Patient requires hospitalization for hypernatremia, UTI, aspiration pneumonia, encephalopathy Diagnoses LELE (acute kidney injury) N17.9 Acute renal insufficiency N28.9 Dehydration E86.0 Acute hypernatremia E87.0 Altered mental status R41.0 Altered mental status type: delirium Pneumonia J18.9 Laterality: right Lung location: lower lobe of lung Pneumonia type: due to unspecified organism UTI (urinary tract infection) N39.0
[2023-04-24 12:18] LABS: Glucose Point of Care 208 mg/dL (70-110)
[2023-04-24] MEDS: sodium chloride 0.45% 1,000 ML 100 ML IV (12:21)
[2023-04-24 16:43] LABS: Glucose Point of Care 112 mg/dL (70-110)
[2023-04-24 17:20] LABS: Blood Urea Nitrogen 57 mg/dL (8-23); Calcium 8.5 mg/dL (8.5-10.5); Carbon Dioxide 28 mmol/L (22-29); Chloride 126 mmol/L (98-107); Creatinine Clr Calc Pharmacy 42.2702; Glucose 137 mg/dL (65-115); Osmolality Calculated 350 mOsm/kg (285-295)
[2023-04-24 17:23] LABS: Anion Gap 10.8 (5-19); Potassium 3.8 mmol/L (3.5-5.1)
[2023-04-24 17:25] LABS: Sodium 161 mmol/L (136-145)
--- NOTE | 2023-04-24 18:10 | PC.NURSE ---
Dr. Morales notified of critical lab result sodium level increase to 161. Telephone order received and read back, stop 0.45% NS and start Dextrose 5% at previous rate of 150ml/hr. See MAR for administration.
[2023-04-24] MEDS: acetaminophen 500 mg Tablet PO (21:13)
[2023-04-25] VITALS (11 sets, daily range): BP systolic 88–138; BP diastolic 42–78; PULSE 60–87; RESP 13–26; TEMP 36.4–36.9; O2SAT 93–99; BMI 29.8
[2023-04-25] MEDS: dextrose 5% 1,000 ML 150 ML IV ×2 (01:15→08:39)
[2023-04-25] MEDS: meropenem 1,000 MG in sodium chloride 0.9% (plus) 50 ML 100 MG IV ×3 (01:18→17:30)
[2023-04-25 01:29] LABS: Glucose Point of Care 212 mg/dL (70-110)
[2023-04-25 03:54] LABS: Basophils % 0.6 %; Eosinophils # 0.2 10^3/uL (0.0-0.8); Eosinophils % 3.3 %; Hematocrit 41.7 % (36-47); Lymphocytes # 1.9 10^3/uL (0.8-4.8); Mean Corpuscular Hemoglobin 27.8 pg (27-33); Mean Corpuscular Volume 95.9 fl (85-98); Mean Platelet Volume 12.3 fL (7.4-10.4); Monocytes # 0.5 10^3/uL (0.2-0.9); Neutrophils # 2.59 10^3/uL (1.8-7.7); Neutrophils % 49.5 %; Nucleated Red Blood Cells % 0 %; Platelet Count 137 10^3/cmm (157-399); Red Blood Count 4.35 10^6/uL (3.85-5.65); Red Cell Distribution Width 14.6 % (12.1-15.1); White Blood Count 5.22 10^3/uL (3.29-11.43)
[2023-04-25 04:16] LABS: Alanine Aminotransferase 18 U/L (0-33); Albumin Level 2.8 g/dL (3.5-5.2); Alkaline Phosphatase 70 U/L (35-105); Anion Gap 13.2 (5-19); Aspartate Amino Transferase 30 U/L (0-32); Blood Urea Nitrogen 42 mg/dL (8-23); Calcium 7.9 mg/dL (8.5-10.5); Carbon Dioxide 25 mmol/L (22-29); Chloride 121 mmol/L (98-107); Creatinine Clr Calc Pharmacy 42.2702; Globulin 3.4 g/dL (1.3-4.6); Glucose 290 mg/dL (65-115); Magnesium 2.1 mg/dL (1.7-2.3); Osmolality Calculated 343 mOsm/kg (285-295); Phosphorus 1.6 mg/dL (2.5-4.5); Potassium 3.2 mmol/L (3.5-5.1); Sodium 156 mmol/L (136-145); Total Bilirubin 0.6 mg/dL (0.15-1.2); Total Protein 6.2 g/dL (6.6-8.7)
[2023-04-25] MEDS: heparin 5,000 unit/mL INJ 1 mL 5000 UNIT SUBCUT ×2 (05:34→17:29)
[2023-04-25 07:37] LABS: Glucose Point of Care 267 mg/dL (70-110)
[2023-04-25] MEDS: insulin lispro 100 unit/1 mL SUBCUT ×3 (07:53→17:52)
[2023-04-25] MEDS: phosphorus 250 mg Tablet PO ×2 (08:03→17:29)
[2023-04-25] MEDS: potassium phosphate (mEq K) 40 MEQ in sodium chloride 0.9% (100 ml) 100 ML 27.27 MEQ IV (08:25)
--- NOTE | 2023-04-25 09:30 | PC.NURSE ---
Transfer Note Patient transferred to med-surg room 279-1 from ICU via bed. Handoff report given to CAN Pratt. Patient oriented to environment and equipment. Covering service notified. Orders reviewed and will continue to monitor. All belongings transferred with patient and placed at bedside.
--- NOTE | 2023-04-25 09:57 | P.PN_ITS ---
Subjective 2 Subjective: no new complaint Medications: Reviewed: Yes Vitals/I&O/Wt Last Vital Signs Temp 97.1 F L 04/24/23 22:00 Pulse 66 04/25/23 07:47 Resp 22 H 04/25/23 07:47 BP 138/62 04/25/23 05:00 Pulse Ox 97 04/25/23 07:47 O2 Del Method Room Air 04/25/23 07:47 04/24/23 04/25/23 04/25/23 22:59 06:59 14:59 Intake Total 590 / 1602.5 1050 / 2652.5 1050 / 1050 Output Total 850 / 850 400 / 1250 Balance -260 / 752.5 650 / 1402.5 1050 / 1050 Weight last 48 hrs Weight 81.374 kg Weight 78.608 kg Weight 78.199 kg Physical Exam 2 Narrative: awake , alert HEENT S1S2 RRR per report Lungs clear per report Urinary Catheter Management: Wynne: Cath Placed During This Visit: yes Reason for Continuing Indwelling Catheter: Accurate Measurement of Urinary Output in Critically Ill Patients Urinary Catheter Date of Insertion: 04/23/23 Urinary Catheter Time of Insertion: 01:21 Data 04/25/23 03:39 04/25/23 03:39 A&P Assessment and plan (1) LELE (acute kidney injury): Plan 1. Acute oliguric kidney injury due to volume depletion and hypotension. Good urine outout, renal function improving 2. Hypernatremia, hypovolemic, improved 3. UTI, possible pneumonia 4. Hyperglycemia, on regular insulin sliding scale 5. Hypophosphatemia, begin oral Kphos elixir recommend: on D5W , await next Na level , and adjust IVFs if needed Attestations 2 Medical Necessity Statement*: per medicine Coding Level of Care Code Acute Code for Chg Fwd Diagnoses LELE (acute kidney injury) N17.9
[2023-04-25 12:27] LABS: Glucose Point of Care 256 mg/dL (70-110)
[2023-04-25 13:36] LABS: Sodium 149 mmol/L (136-145)
--- NOTE | 2023-04-25 14:05 | P.PN_ITS ---
Subjective 2 Subjective: Patient was seen this morning, she is alert to person, not to place, not to time, she can follow commands, serum sodium is 149 Vitals/I&O/Wt Last Vital Signs Temp 97.1 F L 04/24/23 22:00 Pulse 66 04/25/23 07:47 Resp 22 H 04/25/23 07:47 BP 138/62 04/25/23 05:00 Pulse Ox 97 04/25/23 07:47 O2 Del Method Room Air 04/25/23 07:47 04/24/23 04/25/23 04/25/23 22:59 06:59 14:59 Intake Total 590 / 1602.5 1050 / 2652.5 1278.5106 / 1278.5106 Output Total 850 / 850 400 / 1250 Balance -260 / 752.5 650 / 1402.5 1278.5106 / 1278.5106 Weight last 48 hrs Weight 81.374 kg Weight 78.608 kg Physical Exam 2 Const: COMMON NORMALS: no acute distress ORIENTATION/CONSCIOUSNESS: Yes awake and Yes oriented to person; not oriented to place and not oriented to time Resp: COMMON NORMALS: normal respiratory effort, No retractions, No use of accessory muscles and clear to auscultation bilaterally AUSCULTATION: clear to auscultation bilaterally Cardio: COMMON NORMALS: regular rate, regular rhythm, S1 normal heart sound present and S2 normal heart sound present RATE: regular rate RHYTHM: r egular rhythm HEART SOUNDS: S1 normal heart sound present and S2 normal heart sound present GI: COMMON NORMALS: Normal to inspection, nondistended, normoactive bowel sounds present and non-tender Extremity: COMMON NORMALS: no pedal edema Neuro: SENSORIUM/ORIENTATION: Yes oriented to person, No oriented to place and No oriented to time Psych: COMMON NORMALS: mental status grossly normal Urinary Catheter Management: Wynne: Cath Placed During This Visit: yes Reason for Continuing Indwelling Catheter: Accurate Measurement of Urinary Output in Critically Ill Patients Urinary Catheter Date of Insertion: 04/23/23 Urinary Catheter Time of Insertion: 01:21 Data 04/25/23 03:39 04/25/23 13:03 A&P Assessment and plan (1) LELE (acute kidney injury): (2) Acute renal insufficiency: (3) Dehydration: (4) Acute hypernatremia: (5) Altered mental status: Qualifiers: Altered mental status type: delirium Qualified Code(s): R41.0 - Disorientation, unspecified (6) Pneumonia: Qualifiers: Laterality: right Lung location: lower lobe of lung Pneumonia type: d ue to unspecified organism Qualified Code(s): J18.9 - Pneumonia, unspecified organism (7) UTI (urinary tract infection): Plan Metabolic encephalopathy related to dehydration and hypernatremia and uti and uremia Serum sodiums today 149 Currently on D5 water at 50 cc an hour monitor serum sodium at 6pm Nephrology on consult Free water deficit 3.3 L urine and serum osmolality Will request urine sodium and creatinine ratio UREMIA -monitor LELE -monitor Aspiration pneumonia and UTI -meropenem -npo Patient is afebrile Hypotension related to hypovolemia Continue IV fluid hydration Hypernatremia hypovolemia Target sodium correction 6 to 8 mmol/ 24 hours Will follow-up with nephro recommendations Speech therapy eval, dysphagia diet DNR/DNI History of dementia Carries a guarded prognosis Will place Wynne catheter for accurate urine output Monitor sugar as patient carries history of type 2 diabetes Attestations 2 Medical Necessity Statement*: Patient requires hospitalization for hypernatremia, uti Diagnoses LELE (acute kidney injury) N17.9 Acute renal insufficiency N28.9 Dehydration E86.0 Acute hypernatremia E87.0 Altered mental status R41.0 Altered mental status type: delirium Pneumonia J18.9 Laterality: right Lung location: lower lobe of lung Pneumonia type: due to unspecified organism UTI (urinary tract infection) N39.0
[2023-04-25 15:51] LABS: Glucose Point of Care 250 mg/dL (70-110)
[2023-04-25 19:27] LABS: Sodium 152 mmol/L (136-145)
[2023-04-25 20:46] LABS: Glucose Point of Care 163 mg/dL (70-110)
[2023-04-26] VITALS (9 sets, daily range): BP systolic 101–173; BP diastolic 58–85; PULSE 71–112; RESP 14–20; TEMP 36.4–36.8; O2SAT 92–98; BMI 28.5
[2023-04-26] MEDS: dextrose 5% 1,000 ML 50 ML IV (01:25)
[2023-04-26] MEDS: meropenem 1,000 MG in sodium chloride 0.9% (plus) 50 ML 100 MG IV ×3 (01:25→17:32)
--- NOTE | 2023-04-26 05:51 | P.PN_ITS ---
Subjective 2 Subjective: no new complaints Medications: Reviewed: Yes Vitals/I&O/Wt Last Vital Signs Temp 97.9 F 04/25/23 23:31 Pulse 71 04/26/23 03:27 Resp 14 04/26/23 03:27 BP 132/73 04/26/23 03:27 Pulse Ox 97 04/26/23 03:27 O2 Del Method Room Air 04/26/23 03:27 04/25/23 04/25/23 04/26/23 14:59 22:59 06:59 Intake Total 2191.0106 / 2191.0106 257.5 / 2448.5106 50 / 2498.5106 Output Total 875 / 875 200 / 1075 Balance 2191.0106 / 2191.0106 -617.5 / 1573.5106 -150 / 1423.5106 Weight last 48 hrs Weight 77.621 kg Weight 81.374 kg Physical Exam 2 Narrative: awake , alert HEENT S1S2 RRR per report Lungs clear per report Urinary Catheter Management: Wynne: Cath Placed During This Visit: yes Reason for Continuing Indwelling Catheter: Accurate Measurement of Urinary Output in Critically Ill Patients Urinary Catheter Date of Insertion: 04/23/23 Urinary Catheter Time of Insertion: 01:21 Data 04/25/23 03:39 04/25/23 18:54 Micro: Microbiology 04/22/23 22:56 Blood Culture - Preliminary Blood 04/22/23 22:56 Blood Culture - Preliminary Blood A&P Assessment and plan (1) LELE (acute kidney injury): Plan 1. Acute oliguric kidney injury due to volume depletion and hypotension. Good urine outout, renal function improving 2. Hypernatremia, hypovolemic, improved 3. UTI, possible pneumonia 4. Hyperglycemia, on regular insulin sliding scale 5. Hypophosphatemia, begin oral Kphos elixir recommend: on D5W , await next Na level , and adjust IVFs if needed Attestations 2 Medical Necessity Statement*: per medicine Coding Level of Care Code Acute Code for Chg Fwd Diagnoses LELE (acute kidney injury) N17.9
[2023-04-26] MEDS: dextrose 5% 1,000 ML 75 ML IV (06:14)
[2023-04-26] MEDS: heparin 5,000 unit/mL INJ 1 mL 5000 UNIT SUBCUT ×2 (06:16→17:33)
[2023-04-26 06:22] LABS: Glucose Point of Care 152 mg/dL (70-110)
[2023-04-26] MEDS: phosphorus 250 mg Tablet PO ×2 (08:35→17:33)
[2023-04-26] MEDS: insulin lispro 100 unit/1 mL SUBCUT ×3 (08:47→18:43)
[2023-04-26 09:03] LABS: Basophils % 0.5 %; Eosinophils # 0.1 10^3/uL (0.0-0.8); Lymphocytes # 1.7 10^3/uL (0.8-4.8); Lymphocytes % 25.8 %; Mean Corpuscular HGB Conc 30.5 g/dL (30-55); Mean Corpuscular Volume 91.7 fl (85-98); Mean Platelet Volume 12.5 fL (7.4-10.4); Monocytes # 0.6 10^3/uL (0.2-0.9); Monocytes % 8.9 %; Neutrophils # 4.05 10^3/uL (1.8-7.7); Neutrophils % 62.3 %; Nucleated Red Blood Cells % 0 %; Platelet Count 137 10^3/cmm (157-399); Red Blood Count 4.36 10^6/uL (3.85-5.65); Red Cell Distribution Width 14.2 % (12.1-15.1)
[2023-04-26 09:46] LABS: Alanine Aminotransferase 20 U/L (0-33); Albumin Level 2.8 g/dL (3.5-5.2); Alkaline Phosphatase 72 U/L (35-105); Anion Gap 14.1 (5-19); Aspartate Amino Transferase 27 U/L (0-32); Blood Urea Nitrogen 21 mg/dL (8-23); Calcium 7.7 mg/dL (8.5-10.5); Carbon Dioxide 23 mmol/L (22-29); Chloride 115 mmol/L (98-107); Globulin 2.6 g/dL (1.3-4.6); Glucose 254 mg/dL (65-115); Magnesium 1.7 mg/dL (1.7-2.3); Osmolality Calculated 320 mOsm/kg (285-295); Potassium 3.1 mmol/L (3.5-5.1); Sodium 149 mmol/L (136-145); Total Bilirubin 0.5 mg/dL (0.15-1.2); Total Protein 5.4 g/dL (6.6-8.7)
--- NOTE | 2023-04-26 11:14 | P.PN_ITS ---
Subjective 2 Subjective: Patient was seen this morning, she is alert, not to person, not to place, not to time her serum sodium is pending this morning Vitals/I&O/Wt Last Vital Signs Temp 98.3 F 04/26/23 07:00 Pulse 79 04/26/23 07:00 Resp 18 04/26/23 07:00 BP 110/60 04/26/23 07:00 Pulse Ox 96 04/26/23 07:00 O2 Del Method Room Air 04/26/23 07:00 04/25/23 04/26/23 04/26/23 22:59 06:59 14:59 Intake Total 257.5 / 2448.5106 290.833 / 2739.3436 120 / 120 Output Total 875 / 875 200 / 1075 Balance -617.5 / 1573.5106 90.833 / 1664.3436 120 / 120 Weight last 48 hrs Weight 77.621 kg Weight 81.374 kg Physical Exam 2 Const: COMMON NORMALS: no acute distress ORIENTATION/CONSCIOUSNESS: Yes awake and Yes confused; not oriented to person, not oriented to place and not oriented to time Resp: COMMON NORMALS: normal respiratory effort, No retractions, No use of accessory muscles and clear to auscultation bilaterally AUSCULTATION: clear to auscultation bilaterally Cardio: COMMON NORMALS: regular rate, regular rhythm, S1 normal heart sound present and S2 normal heart sound present RATE: regular rate RHYTHM: r egular rhythm HEART SOUNDS: S1 normal heart sound present and S2 normal heart sound present GI: COMMON NORMALS: Normal to inspection, nondistended, normoactive bowel sounds present, Soft to palpation, non-tender, No hepatosplenomegaly present, no masses and no bruits PALPATION: Yes Soft to palpation and Yes No hepatosplenomegaly present Extremity: COMMON NORMALS: capillary refill normal, no clubbing, cyanosis or edema, no calf tenderness and no pedal edema Neuro: SENSORIUM/ORIENTATION: No oriented to person, No oriented to place and No oriented to time Psych: COMMON NORMALS: mental status grossly normal Urinary Catheter Management: Wynne: Cath Placed During This Visit: yes Reason for Continuing Indwelling Catheter: Other Urinary Catheter Date of Insertion: 04/23/23 Urinary Catheter Time of Insertion: 01:21 Data 04/26/23 08:54 04/26/23 08:54 Micro: Microbiology 04/22/23 22:56 Blood Culture - Preliminary Blood 04/22/23 22:56 Blood Culture - Preliminary Blood A&P Assessment and plan (1) LELE (acute kidney injury): (2) Acute renal insufficiency: (3) Dehydration: (4) Acute hypernatremia: (5) Altered mental status: Qualifiers: Altered mental status type: delirium Qualified Code(s): R41.0 - Disorientation, unspecified (6) Pneumonia: Qualifiers: Laterality: right Lung location: lower lobe of lung Pneumonia type: d ue to unspecified organism Qualified Code(s): J18.9 - Pneumonia, unspecified organism (7) UTI (urinary tract infection): Plan Metabolic encephalopathy related to dehydration and hypernatremia and uti and uremia Serum sodiums today 149 Currently on D5 water at 50 cc an hour monitor serum sodium at 6pm Nephrology on consult Free water deficit 3.3 L urine and serum osmolality Will request urine sodium and creatinine ratio UREMIA -monitor LELE -monitor Aspiration pneumonia and UTI -meropenem -dysphagia diet Patient is afebrile Hypotension related to hypovolemia Continue IV fluid hydration Hypernatremia hypovolemia Target sodium correction 6 to 8 mmol/ 24 hours Will follow-up with nephro recommendations Speech therapy eval, dysphagia diet DNR/DNI History of dementia Carries a guarded prognosis Will place Wynne catheter for accurate urine output Monitor sugar as patient carries history of type 2 diabetes Attestations 2 Medical Necessity Statement*: Patient requires hospitalization for metabolic encephalopathy, aspiration pneumonia UTI Diagnoses LELE (acute kidney injury) N17.9 Acute renal insufficiency N28.9 Dehydration E86.0 Acute hypernatremia E87.0 Altered mental status R41.0 Altered mental status type: delirium Pneumonia J18.9 Laterality: right Lung location: lower lobe of lung Pneumonia type: due to unspecified organism UTI (urinary tract infection) N39.0
[2023-04-26 11:49] LABS: Glucose Point of Care 272 mg/dL (70-110)
[2023-04-26] MEDS: potassium chloride ER 20 mEq Tablet 40 MEQ PO (12:14)
[2023-04-26 17:44] LABS: Glucose Point of Care 245 mg/dL (70-110)
[2023-04-26 21:50] LABS: Glucose Point of Care 163 mg/dL (70-110)
[2023-04-27] VITALS (9 sets, daily range): BP systolic 104–169; BP diastolic 65–84; PULSE 75–86; RESP 16–18; TEMP 36.6–37.6; O2SAT 92–98
[2023-04-27] MEDS: meropenem 1,000 MG in sodium chloride 0.9% (plus) 50 ML 100 MG IV ×3 (01:25→16:54)
--- NOTE | 2023-04-27 04:43 | P.PN_ITS ---
Subjective 2 Subjective: no new c/o Medications: Reviewed: Yes Vitals/I&O/Wt Last Vital Signs Temp 97.9 F 04/26/23 23:57 Pulse 77 04/26/23 23:57 Resp 16 04/26/23 23:57 BP 127/62 04/26/23 23:57 Pulse Ox 92 04/26/23 23:57 O2 Del Method Room Air 04/26/23 23:57 04/26/23 04/26/23 04/27/23 14:59 22:59 06:59 Intake Total 290 / 290 290 / 580 50 / 630 Output Total 200 / 200 700 / 900 Balance 90 / 90 -410 / -320 50 / -270 Weight last 48 hrs Weight 77.621 kg Weight 81.374 kg Physical Exam 2 Narrative: awake , alert HEENT S1S2 RRR per report Lungs clear per report Urinary Catheter Management: Wynne: Cath Placed During This Visit: yes Reason for Continuing Indwelling Catheter: Other Urinary Catheter Date of Insertion: 04/23/23 Urinary Catheter Time of Insertion: 01:21 Data 04/27/23 05:40 04/27/23 05:40 A&P Assessment and plan (1) LELE (acute kidney injury): Plan 1. Acute oliguric kidney injury due to volume depletion and hypotension. Good urine output, renal function improving 2. Hypernatremia, hypovolemic, improving 3. UTI, possible pneumonia 4. Hyperglycemia, on regular insulin sliding scale 5. Hypophosphatemia, on oral Kphos elixir Attestations 2 Medical Necessity Statement*: per medicine Coding Level of Care Code Acute Code for [facility] Diagnoses LELE (acute kidney injury) N17.9
[2023-04-27] MEDS: heparin 5,000 unit/mL INJ 1 mL 5000 UNIT SUBCUT ×2 (05:24→16:54)
[2023-04-27 06:05] LABS: Basophils % 0.5 %; Eosinophils # 0.2 10^3/uL (0.0-0.8); Eosinophils % 2.5 %; Hematocrit 39.2 % (36-47); Lymphocytes # 1.9 10^3/uL (0.8-4.8); Lymphocytes % 29.4 %; Mean Corpuscular HGB Conc 30.4 g/dL (30-55); Mean Corpuscular Hemoglobin 27.9 pg (27-33); Mean Corpuscular Volume 91.8 fl (85-98); Mean Platelet Volume 12.3 fL (7.4-10.4); Monocytes # 0.6 10^3/uL (0.2-0.9); Monocytes % 9.4 %; Neutrophils # 3.74 10^3/uL (1.8-7.7); Neutrophils % 57.6 %; Nucleated Red Blood Cells % 0 %; Platelet Count 131 10^3/cmm (157-399); Red Blood Count 4.27 10^6/uL (3.85-5.65); Red Cell Distribution Width 14.3 % (12.1-15.1); White Blood Count 6.49 10^3/uL (3.29-11.43)
[2023-04-27 06:33] LABS: Blood Urea Nitrogen 14 mg/dL (8-23); Calcium 7.6 mg/dL (8.5-10.5); Carbon Dioxide 24 mmol/L (22-29); Chloride 112 mmol/L (98-107); Glucose 210 mg/dL (65-115); Magnesium 1.7 mg/dL (1.7-2.3); Osmolality Calculated 309 mOsm/kg (285-295); Phosphorus 1.9 mg/dL (2.5-4.5); Sodium 146 mmol/L (136-145)
[2023-04-27 06:43] LABS: Glucose Point of Care 184 mg/dL (70-110)
[2023-04-27] MEDS: insulin lispro 100 unit/1 mL SUBCUT ×3 (08:21→16:54)
[2023-04-27] MEDS: phosphorus 250 mg Tablet PO ×2 (08:21→16:54)
[2023-04-27] MEDS: dextrose 5% 1,000 ML 75 ML IV (08:21)
[2023-04-27] MEDS: potassium phosphate (mEq K) 40 MEQ in sodium chloride 0.9% (100 ml) 100 ML 27.27 MEQ IV (10:17)
[2023-04-27 12:18] LABS: Glucose Point of Care 206 mg/dL (70-110)
--- NOTE | 2023-04-27 13:27 | PC.SOCIAL ---
IMM Updated Updated pt on IMM. No questions voiced. Provided pt a copy. Initialed, dated, & timed copy in chart.
--- NOTE | 2023-04-27 14:11 | P.PN_ITS ---
Subjective 2 Subjective: Patient was seen this morning, she remains alert, not to person, not to place, not to time, she does not follow commands, she does awaken, she laughs for me, but does not follow commands, she remains on D5 water, her last serum sodium was 149, but plan for today is to take her off the D5 water watch her serum sodiums and by tomorrow likely discharge her if her serum sodiums worsens, then we will have to discuss with family about her overall goals of care she is DNR/DNI if she is having poor oral intake we may have liberalizing her intake, and possibly discuss PEG tube placement, for adequate fluid hydration, Vitals/I&O/Wt Last Vital Signs Temp 98.1 F 04/27/23 12:00 Pulse 86 04/27/23 12:00 Resp 16 04/27/23 12:00 BP 169/84 04/27/23 12:00 Pulse Ox 96 04/27/23 12:00 O2 Del Method Room Air 04/27/23 12:00 04/26/23 04/27/23 04/27/23 22:59 06:59 14:59 Intake Total 290 / 580 50 / 630 1473.75 / 1473.75 Output Total 700 / 900 150 / 1050 Balance -410 / -320 -100 / -420 1473.75 / 1473.75 Weight last 48 hrs Weight 80.824 kg Weight 77.621 kg Physical Exam 2 Const: COMMON NORMALS: no acute distress Resp: COMMON NORMALS: normal respiratory effort, No retractions, No use of accessory muscles and clear to auscultation bilaterally AUSCULTATION: clear to auscultation bilaterally Cardio: COMMON NORMALS: regular rate, regular rhythm, S1 normal heart sound present and S2 normal heart sound present RATE: regular rate RHYTHM: r egular rhythm HEART SOUNDS: S1 normal heart sound present and S2 normal heart sound present GI: COMMON NORMALS: Normal to inspection, nondistended, normoactive bowel sounds present and non-tender Extremity: COMMON NORMALS: no pedal edema Urinary Catheter Management: Wynne: Cath Placed During This Visit: yes Reason for Continuing Indwelling Catheter: Other Urinary Catheter Date of Insertion: 04/23/23 Urinary Catheter Time of Insertion: 01:21 Data 04/27/23 05:40 04/27/23 05:40 A&P Assessment and plan (1) LELE (acute kidney injury): (2) Acute renal insufficiency: (3) Dehydration: (4) Acute hypernatremia: (5) Altered mental status: Qualifiers: Altered mental status type: delirium Qualified Code(s): R41.0 - Disorientation, unspecified (6) Pneumonia: Qualifiers: Laterality: right Lung location: lower lobe of lung Pneumonia type: d ue to unspecified organism Qualified Code(s): J18.9 - Pneumonia, unspecified organism (7) UTI (urinary tract infection): Plan Metabolic encephalopathy related to dehydration and hypernatremia and uti and uremia Serum sodiums today 149 stop D5 water, watch sodium Nephrology on consult Free water deficit 3.3 L urine and serum osmolality Will request urine sodium and creatinine ratio UREMIA -monitor LELE -monitor Aspiration pneumonia and UTI -meropenem -dysphagia diet Patient is afebrile Hypotension related to hypovolemia, resolved Continue IV fluid hydration Hypernatremia hypovolemia, resolving Target sodium correction 6 to 8 mmol/ 24 hours Will follow-up with nephro recommendations Speech therapy eval, dysphagia diet DNR/DNI History of dementia Carries a guarded prognosis Will place Wynne catheter for accurate urine output Monitor sugar as patient carries history of type 2 diabetes Attestations 2 Medical Necessity Statement*: Patient requires hospitalization for hyponatremia, aspiration pneumonia, UTI Diagnoses LELE (acute kidney injury) N17.9 Acute renal insufficiency N28.9 Dehydration E86.0 Acute hypernatremia E87.0 Altered mental status R41.0 Altered mental status type: delirium Pneumonia J18.9 Laterality: right Lung location: lower lobe of lung Pneumonia type: due to unspecified organism UTI (urinary tract infection) N39.0
[2023-04-27 14:25] LABS: Sodium 140 mmol/L (136-145)
[2023-04-27 16:30] LABS: Glucose Point of Care 209 mg/dL (70-110)
[2023-04-27 21:26] LABS: Glucose Point of Care 167 mg/dL (70-110)
[2023-04-28] VITALS: BP 104/78; PULSE 85; RESP 18; TEMP 36.9; O2SAT 96
[2023-04-28] MEDS: meropenem 1,000 MG in sodium chloride 0.9% (plus) 50 ML 100 MG IV ×2 (00:15→08:12)
[2023-04-28 03:57] VITALS: BP 149/80; PULSE 86; RESP 16; TEMP 36.5; O2SAT 90
[2023-04-28] MEDS: heparin 5,000 unit/mL INJ 1 mL 5000 UNIT SUBCUT (05:04)
[2023-04-28 05:23] VITALS: PULSE 80
[2023-04-28 06:15] LABS: Basophils % 0.3 %; Eosinophils # 0.1 10^3/uL (0.0-0.8); Eosinophils % 1.6 %; Hematocrit 38.6 % (36-47); Lymphocytes # 1.8 10^3/uL (0.8-4.8); Lymphocytes % 29.2 %; Mean Corpuscular HGB Conc 30.6 g/dL (30-55); Mean Corpuscular Hemoglobin 27.3 pg (27-33); Mean Corpuscular Volume 89.4 fl (85-98); Mean Platelet Volume 12.4 fL (7.4-10.4); Monocytes # 0.7 10^3/uL (0.2-0.9); Monocytes % 11.2 %; Neutrophils # 3.52 10^3/uL (1.8-7.7); Neutrophils % 57.4 %; Nucleated Red Blood Cells % 0 %; Platelet Count 138 10^3/cmm (157-399); Red Blood Count 4.32 10^6/uL (3.85-5.65); Red Cell Distribution Width 14.6 % (12.1-15.1); White Blood Count 6.14 10^3/uL (3.29-11.43)
--- NOTE | 2023-04-28 06:18 | P.PN_ITS ---
Subjective 2 Subjective: no new complaints Medications: Reviewed: Yes Vitals/I&O/Wt Last Vital Signs Temp 97.7 F 04/28/23 03:57 Pulse 80 04/28/23 05:23 Resp 16 04/28/23 03:57 BP 149/80 04/28/23 03:57 Pulse Ox 90 04/28/23 03:57 O2 Del Method Room Air 04/28/23 03:57 04/27/23 04/27/23 04/28/23 14:59 22:59 06:59 Intake Total 1582.2606 / 1582.2606 170 / 1752.2606 50 / 1802.2606 Output Total 200 / 200 100 / 300 Balance 1582.2606 / 1582.2606 -30 / 1552.2606 -50 / 1502.2606 Weight last 48 hrs Weight 81.278 kg Weight 80.824 kg Physical Exam 2 Narrative: awake , alert HEENT S1S2 RRR per report Lungs clear per report Urinary Catheter Management: Wynne: Cath Placed During This Visit: yes Reason for Continuing Indwelling Catheter: Assist Healing of Perineal & Sacral Wounds- Incontinent Patients Urinary Catheter Date of Insertion: 04/23/23 Urinary Catheter Time of Insertion: 01:21 Data 04/28/23 06:05 04/28/23 06:05 A&P Assessment and plan (1) LELE (acute kidney injury): Plan 1. Acute oliguric kidney injury due to volume depletion and hypotension. Good urine output, renal function improving 2. Hypernatremia, hypovolemic, improving 3. UTI, possible pneumonia 4. Hyperglycemia, on regular insulin sliding scale 5. Hypophosphatemia, on oral Kphos elixir Attestations 2 Medical Necessity Statement*: per gricel Coding Level of Care Code Acute Code for [facility] Fwd Diagnoses LELE (acute kidney injury) N17.9
[2023-04-28 06:44] LABS: Glucose Point of Care 156 mg/dL (70-110)
[2023-04-28 06:44] LABS: Blood Urea Nitrogen 9 mg/dL (8-23); Calcium 7.6 mg/dL (8.5-10.5); Carbon Dioxide 23 mmol/L (22-29); Chloride 110 mmol/L (98-107); Glucose 146 mg/dL (65-115); Osmolality Calculated 299 mOsm/kg (285-295); Sodium 144 mmol/L (136-145)
[2023-04-28 06:59] LABS: Magnesium 1.6 mg/dL (1.7-2.3); Phosphorus 2.4 mg/dL (2.5-4.5)
[2023-04-28 07:28] VITALS: BP 128/73; PULSE 82; RESP 17; TEMP 36.7; O2SAT 94
[2023-04-28 07:55] LABS: Osmolality Urine 641 mOsm/kg (50-1200)
[2023-04-28 08:04] LABS: Osmolality Serum 407 mOsm/kg (278-305)
[2023-04-28] MEDS: phosphorus 250 mg Tablet PO (08:12)
[2023-04-28] MEDS: insulin lispro 100 unit/1 mL SUBCUT ×2 (08:12→11:51)
[2023-04-28] MEDS: lidocaine 1% 5 ML in potassium chloride premix 100 ML 26.25 ML IV (09:47)
--- NOTE | 2023-04-28 10:15 | PM.DCS ---
Discharge Providers Date of Admission: 04/23/23 01:46 Date of Discharge: April 28, 2023 Attending Provider at Admission: Anaid Hendrix MD Attending Provider at Discharge: Marlon Varner MD Primary Care Provider: Shikha Campbell MD Diagnoses at Discharge Discharge Diagnosis (1) LELE (acute kidney injury): Status: Acute Reason for Visit Reason for Visit: [facility] Hospital Course Hospital Course Debbie Jules is a 78 year old female with history of dementia, diabetes, recurrent UTI, low vitamin B12, resident of [facility], presented with chief complaint of unresponsiveness. As per the shelter patient has not been eating well for last 5 to 6 days, on she was diagnosed with UTI she was given intramuscular antibiotic for cystitis, her blood work on 04/01 showed sodium within normal range, in the ER patient has nonpurposeful movement of her extremities, she will look at you make eye contact but would not be able to comprehend commands, she is moaning, in the ER her workup showed severe dehydration, hypernatremia with hyperchloremia, signs of UTI, patient has been given fluid bolus along antibiotics I requested ER physician to start D5 half-normal saline and nephro consultation Patient is DNR/DNI No family at the bedside Patient was admitted to [facility] for metabolic encephalopathy related to dehydration, hypernatremia, aspiration pneumonia, UTI, For her hypernatremia she was managed with D5 water, serum sodiums improved, serum sodium at discharge 144, For her aspiration pneumonia UTI managed with broad-spectrum antibiotic therapy, managed on a dysphagia diet, discharged on dysphagia diet, she received over 5 days of IV antibiotics as inpatient, completed antibiotic therapy as inpatient For hypotension related to hypovolemia, resolved, Patient has underlying dementia, at baseline her mentation is alert, not to place, not to time, she does not follow commands, she can feed, she is nonambulatory Physical Exam Const: COMMON NORMALS: no acute distress Resp: COMMON NORMALS: normal respiratory effort, No retractions, No use of accessory muscles and clear to auscultation bilaterally AUSCULTATION: clear to auscultation bilaterally Cardio: COMMON NORMALS: regular rate, regular rhythm, S1 normal heart sound present and S2 normal heart sound present RATE: regular rate RHYTHM: regular rhythm HEART SOUNDS: S1 normal heart sound present and S2 normal heart sound present GI: COMMON NORMALS: Normal to inspection, nondistended, normoactive bowel sounds present and non-tender Extremity: COMMON NORMALS: no pedal edema Urinary Catheter Management: Wynne: Cath Placed During This Visit: yes Reason for Continuing Indwelling Catheter: Assist Healing of Perineal & Sacral Wounds- Incontinent Patients Urinary Catheter Date of Insertion: 04/23/23 Urinary Catheter Time of Insertion: 01:21 Discharge Data Studies Completed and Pending Completed Studies During Hospitalization Category Date Time Status XR chest 1V portable [id number] Stat Exams 04/22/23 22:34 Completed Pending at discharge Category Date Time Status Basic Metabolic Panel AM LABS Lab 04/29/23 04:00 Ordered Blood Cultures ([facility]) Routine Lab 04/22/23 22:56 Results Blood Cultures ([facility]) Routine Lab 04/22/23 22:56 Results Complete Blood Count w/Auto AM LABS Lab 04/29/23 04:00 Ordered Magnesium AM LABS Lab 04/29/23 04:00 Ordered Phosphorus AM LABS Lab 04/29/23 04:00 Ordered Radiology Impressions Chest X-Ray 04/22/23 22:34 IMPRESSION: 1. Large hiatal hernia suspected. 2. Right lower lobe atelectasis versus infiltrate suspected. Laboratory Results WBC 6.14 10^3/uL (3.29-11.43) 04/28/23 06:05 RBC 4.32 10^6/uL (3.85-5.65) 04/28/23 06:05 Hgb 11.80 g/dL (11.27-16.99) 04/28/23 06:05 Hct 38.6 % (36-47) 04/28/23 06:05 MCV 89.4 fl (85-98) 04/28/23 06:05 MCH 27.3 pg (27-33) 04/28/23 06:05 MCHC 30.6 g/dL (30-55) 04/28/23 06:05 RDW 14.6 % (12.1-15.1) 04/28/23 06:05 Plt Count 138 10^3/cmm (157-399) L 04/28/23 06:05 MPV 12.4 fL (7.4-10.4) H 04/28/23 06:05 Neut % (Auto) 57.4 % 04/28/23 06:05 Lymph % (Auto) 29.2 % 04/28/23 06:05 [place] % (Auto) 11.2 % 04/28/23 06:05 Eos % (Auto) 1.6 % 04/28/23 06:05 Baso % (Auto) 0.3 % 04/28/23 06:05 Neut # (Auto) 3.52 10^3/uL (1.8-7.7) 04/28/23 06:05 Lymph # (Auto) 1.8 10^3/uL (0.8-4.8) 04/28/23 06:05 [place] # (Auto) 0.7 10^3/uL (0.2-0.9) 04/28/23 06:05 Eos # (Auto) 0.1 10^3/uL (0.0-0.8) 04/28/23 06:05 Baso # (Auto) 0.0 10^3/uL (0.0-0.1) 04/28/23 06:05 Nucleated RBC % (auto) 0 % 04/28/23 06:05 Nucleated RBCs # 0.0 /100WBC 04/28/23 06:05 Sodium 144 mmol/L (136-145) 04/28/23 06:05 Potassium 3.0 mmol/L (3.5-5.1) L 04/28/23 06:05 Chloride 110 mmol/L (98-107) H 04/28/23 06:05 Carbon Dioxide 23 mmol/L (22-29) 04/28/23 06:05 Anion Gap 14.0 (5-19) 04/28/23 06:05 BUN 9 mg/dL (8-23) 04/28/23 06:05 Creatinine 0.7 mg/dL (0.5-0.9) 04/28/23 06:05 GFR Calculation Not Reportable 04/28/23 06:05 Glucose 146 mg/dL (65-115) H 04/28/23 06:05 POC Glucose 156 mg/dL (70-110) H 04/28/23 06:31 Serum Osmolality 407 mOsm/kg (278-305) H 04/23/23 00:52 Calculated Osmolality 299 mOsm/kg (285-295) H 04/28/23 06:05 Lactic Acid 2.3 mmol/L (0.5-2.2) H 04/22/23 22:43 Lactic Acid (Sepsis) 3.0 mmol/L (0.5-2.2) H 04/23/23 00:52 Uric Acid 15.4 mg/dL (2.4-5.7) H 04/23/23 00:52 Calcium 7.6 mg/dL (8.5-10.5) L 04/28/23 06:05 Phosphorus 2.4 mg/dL (2.5-4.5) L 04/28/23 06:05 Magnesium 1.6 mg/dL (1.7-2.3) L 04/28/23 06:05 Total Bilirubin 0.5 mg/dL (0.15-1.2) 04/26/23 08:54 AST 27 U/L (0-32) 04/26/23 08:54 ALT 20 U/L (0-33) 04/26/23 08:54 Alkaline Phosphatase 72 U/L (35-105) 04/26/23 08:54 Creatine Kinase 200 U/L (26-192) H 04/23/23 17:18 Troponin T Baseline 53 ng/L (0-10) H 04/22/23 22:43 Troponin T 120 Minute 50.65 ng/L (0-10) H 04/23/23 00:52 Delta Troponin T -2.35 ABS# (0-10) L 04/23/23 00:52 Troponin T Hi Sens 6Hr 44.91 ng/L (0-10) H 04/23/23 04:08 Troponin T Hi Sens 6Hr Delta -8.09 ng/L (0-12) L 04/23/23 04:08 Total Protein 5.4 g/dL (6.6-8.7) L 04/26/23 08:54 Albumin 2.8 g/dL (3.5-5.2) L 04/26/23 08:54 Globulin 2.6 g/dL (1.3-4.6) 04/26/23 08:54 Vitamin B12 834 pg/mL (232-1245) 04/23/23 00:52 Procalcitonin 0.15 ng/mL (0-0.5) 04/22/23 22:43 TSH 0.44 uIU/mL (0.27-4.20) 04/23/23 00:52 Urine Color Yellow (Yellow) 04/22/23 23:29 Urine Appearance Cloudy (CLEAR) A 04/22/23 23: Urine pH 5 (5-7) 04/22/23 23:29 Ur Specific [place] 1.020 (1.005-1.030) 04/22/23 23:29 Urine Protein Neg (Negative) 04/22/23 23:29 Urine Glucose (UA) Norm (Normal) 04/22/23 23: Urine Ketones 1+ (Negative) H 04/22/23 23: Urine Blood 2+ (Negative) H 04/22/23 23: Urine Nitrate Negative (Negative) 04/22/23 23: Urine Bilirubin Neg (Negative) 04/22/23 23: Urine Urobilinogen Norm mg/dL (Negative) 04/22/23 23:29 Ur Leukocyte Esterase Trace (Negative) H 04/22/23 23:29 Urine RBC 0-4 /hpf (0-2) H 04/22/23 23:29 Urine WBC 10-15 /hpf (0-5) H 04/22/23 23:29 Ur Squamous Epith Cells 40-55 /hpf (0-5) H 04/22/23 23: Amorphous Sediment Not Reportable 04/22/23 23:29 Urine Bacteria 1+ /hpf (NONE) H 04/22/23 23:29 Urine Osmolality 641 mOsm/kg (50-1200) 04/23/23 01:20 Ur Random Microalbumin 4 ug/dL (0-20) 04/23/23 01:20 Ur Random Sodium 59 mmol/L 04/23/23 01:20 Ur Random Chloride 13 mmol/L 04/23/23 01:20 Urine Creatinine 111 mg/dL (28-217) 04/23/23 01:20 Microalb/Creat Ratio 36 mg/dL (0-20) H 04/23/23 01:20 Urine Opiates Screen Negative ng/mL (Negative) 04/22/23 23:29 Ur Barbiturates Screen Negative ng/mL (Negative) 04/22/23 23:29 Ur Phencyclidine Scrn Negative ng/mL (Negative) 04/22/23 23:29 Ur Amphetamines Screen Negative ng/mL (Negative) 04/22/23 23:29 U Benzodiazepines Scrn Negative ng/mL (Negative) 04/22/23 23:29 Urine Cocaine Screen Negative ng/mL (Negative) 04/22/23 23:29 U Marijuana (THC) Screen Negative ng/mL (Negative) 04/22/23 23:29 Vitals Last Vital Signs Temp 98.1 F 04/28/23 07:28 Pulse 82 04/28/23 07:28 Resp 17 04/28/23 07:28 BP 128/73 04/28/23 07:28 Pulse Ox 94 04/28/23 07:28 O2 Del Method Room Air 04/28/23 08:00 Discharge Plan Discharge Patient Disposition: Xfer SNF Condition: Stable Prescriptions: New Y-Qwij-Wypseah 250 mg tablet 1 tab PO DAILY 5 Days Qty: 5 0RF potassium chloride 20 mEq tablet extended release 20 meq PO DAILY 5 Days Qty: 5 0RF Continued bisacodyl 10 mg Suppository 10 mg OK Q12H PRN (Reason: Constipation) bisacodyl 5 mg Tablet,Delayed Release (Dr/Ec) 10 mg PO DAILY PRN (Reason: Constipation) docusate sodium 100 mg Tablet 200 mg PO DAILY PRN (Reason: Constipation) lorazepam 0.5 mg Tablet 0.5 mg PO DAILY PRN (Reason: anxiety) lovastatin 10 mg Tablet 5 mg PO DAILY magnesium hydroxide [Milk of Magnesia] 400 mg/5 mL Suspension 30 ml PO DAILY PRN (Reason: Constipation) omeprazole 20 mg Capsule,Delayed Release(Dr/Ec) 20 mg PO QAM TwoCal HN Liquid 60 ea PO 3XD acetaminophen 325 mg Tablet 650 mg PO Q4H PRN (Reason: Pain) Lactaid 3,000 unit Tablet 1 unit PO TID Nyamyc 100,000 unit/gram powder See Rx Instructions .ROUTE .COMPLEX Rx Instructions: 1 applic topically under right breast twice daily metformin 500 mg tablet extended release 24 hr 1,000 mg PO BEDTIME Januvia 50 mg tablet 50 mg PO DAILY Discontinued Levemir FlexPen 100 unit/mL (3 mL) Insulin Pen 30 unit SUBCUT BEDTIME ertapenem 1 gram recon soln 1 g IM DAILY Discharge Orders: Discharge Order (Routine); Ordered 04/28/23 Ordered By: Marlon Varner Referrals: [facility] [Outside] Shikha Campbell MD [Primary Care Provider] - Discharge Diet: Cardiac Discharge Activity: Resume usual activity Patient Instructions: Altered Mental Status (ED), Opioid Safety Discharge Attestations Time Spent in Discharge Care*: greater than 30 min Quality Metrics Clinical Quality Measures [ No reported AMI, CVA or VTE this stay] Coding Level of Care Code 48431 Total time (in minutes) for Discharge: 45 Diagnoses LELE (acute kidney injury) N17.9
[2023-04-28 11:04] VITALS: BP 120/63; PULSE 67; RESP 18; O2SAT 99
[2023-04-28 11:09] LABS: SARS Covid-2 Antigen negative (Negative)
[2023-04-28 11:45] LABS: Glucose Point of Care 145 mg/dL (70-110)
--- NOTE | 2023-04-28 13:36 | PC.NURSE ---
This nurse called report to [facility] at 1335 to MURPHY Olmedo.
[2023-04-28 15:55] VITALS: BP 111/65; PULSE 76; RESP 18
== END 2023-04-28 16:40 | disposition skilled nursing facility (03) | DRG 70 ==
LOC: ER 04-23 00:52 → ER IP 04-23 01:47 → ICU 04-23 13:01 → MEDSURG 04-25 09:34
PROVIDERS: Internal Medicine; Admitting Provider Internal Medicine; Emergency Provider Emergency Medicine; PCP Family Medicine; Visit Provider Family Medicine
DX: G93.41 Metabolic encephalopathy (principal); J69.0 Pneumonitis due to inhalation of food and vomit; N17.9 Acute kidney failure, unspecified; N39.0 Urinary tract infection, site not specified; F05 Delirium due to known physiological condition; E87.0 Hyperosmolality and hypernatremia; Z86.73 Personal history of transient ischemic attack (TIA), and cerebral infarction without residual deficits; F32.A Depression, unspecified; E11.65 Type 2 diabetes mellitus with hyperglycemia; Z66 Do not resuscitate; E53.8 Deficiency of other specified B group vitamins; F03.90 Unspecified dementia, unspecified severity, without behavioral disturbance, psychotic disturbance, mood disturbance, and anxiety; E86.0 Dehydration; I95.9 Hypotension, unspecified; R00.0 Tachycardia, unspecified; E83.41 Hypermagnesemia; E83.39 Other disorders of phosphorus metabolism; Z87.440 Personal history of urinary (tract) infections
CPT/HCPCS: 36415; 36416; 51702; 71045; 80048; 80053; 80306; 81001; 81003; 82044; 82436; 82550; 82607; 82962; 83605; 83735; 83930; 83935; 84100; 84145; 84295; 84300; 84443; 84484; 84550; 85025; 87040; 87426; 92526; 92610; 93005; 96365; 96366; 96367; 96372; 99291; J1644; J1815; J2185; J2543; J3480; J7030; J7070; J7120; J7799; Q3014

== ENCOUNTER 2023-06-02 19:21 | Inpatient (IN) | payer MEDICARE, MEDICAID, SELFPAY ==
[2023-06-02 19:28] VITALS: BP 82/60; PULSE 95; RESP 19; TEMP 36.7; O2SAT 99; BMI 25.0
[2023-06-02 19:33] VITALS: BP 118/60; PULSE 93; RESP 18; O2SAT 93
--- NOTE | 2023-06-02 19:33 | XRR_ITS ---
PROCEDURE INFORMATION: Exam: XR Chest Exam date and time: 06/02/2023 7:52 PM Age: 78 years old Clinical indication: Condition or disease; Other: AMS; Patient HX: PT here from [facility] via EMS with C/O trying to . EMS reports that PT has been declining for a couple of days and the daughter wanted her sent to er to make her better. EMS reports a HX of diabetes. PT is a&ox 0. PT was given ns en route. TECHNIQUE: Imaging protocol: Radiologic exam of the chest. Views: 1 view. COMPARISON: CR (CHEST, ) 04/22/2023 10:54 PM FINDINGS: Lungs: Unremarkable. No consolidation. Pleural spaces: Unremarkable. No pleural effusion. No pneumothorax. Heart/Mediastinum: Large hiatal hernia again noted. Bones/joints: Unremarkable. XR/XR chest 1V portable [id number] IMPRESSION: No acute findings.
--- NOTE | 2023-06-02 19:36 | ECG_ITS ---
[facility] Test Date: 2023-06-02 Pat Name: Debbie Jules Department: Room: Gender: Female Fitness Services Manager: : 1945 Requested By: Tnaner Hodge Order Number: [id number] Santy MD: Babatunde Yoder M.D. Measurements Intervals [place] Rate: 95 P: 91 DC: 129 QRS: 84 QRSD: 119 T: -2 QT: 416 QTc: 524 Interpretive Statements SINUS RHYTHM INCOMPLETE RIGHT BUNDLE BRANCH BLOCK [90+ ms QRS DURATION, TERMINAL R IN V1/V2, 40+ ms S IN I/aVL/V4/V5/V6] ABNORMAL QRS-T ANGLE [QRS-T AXIS DIFFERENCE > 60] Compared to ECG 04/22/2023 22:47:45 Incomplete right bundle-branch block now present Sinus tachycardia no longer present Right bundle-branch block no longer present Electronically Signed On 06-05-2023 23:21:14 [employer] by Babatunde Yoder M.D. [id number]
--- NOTE | 2023-06-02 19:39 | ED_ITS ---
HPI - General Adult 2 General: Chief complaint: General Medical Stated complaint: end of life Time Seen by Provider: 06/02/23 19:30 Limitations: altered mental status History of Present Illness: Patient presents to the ER by EMS from [facility] after patient's been declining overall for the last couple days. Patient is on 4 L of oxygen per nasal cannula, patient has her eyes open but is not alert oriented and will not respond to verbal stimuli. Daughter wanted her sent to the ER to make her better. Patient was admitted approximately a month ago for severe hyper per natremia, pneumonia, dehydration, renal insufficiency, Patient is a DNR and this was clarified with the daughter who is the DPOA by nursing. Review of Systems 2 General: Reports: ROS unobtainable due to mental status PFSH ED 2 PFSH: Medical History TIA (transient ischemic attack) Depression Anemia Dementia B12 deficiency Diabetes Physical Exam 2 HENMT: COMMON NORMALS: normocephalic, atraumatic and Normal external nose present; oral mucous membranes not moist (Very dry oral mucosa) HEAD & SCALP: n ormocephalic and atraumatic NOSE: Normal external nose present Neck/C-Spine: COMMON NORMALS: no JVD Chest: COMMONS NORMALS: normal inspection of the chest and normal palpation of entire chest wall Resp: COMMON NORMALS: normal respiratory effort (Decreased breath sounds with rhonchi bilateral) Cardio: COMMON NORMALS: no JVD, regular rate, regular rhythm, S1 normal heart sound present, S2 normal heart sound present, No gallops present (Cardio), No clicks present (Cardio) and No murmurs present (Cardio) RATE: regular rate RHYTHM: regular rhythm HEART SOUNDS: S1 normal heart sound present and S2 normal heart sound present GI: COMMON NORMALS: Normal to inspection, nondistended, normoactive bowel sounds present, Soft to palpation, non-tender, No hepatosplenomegaly present and no masses PALPATION: Yes Soft to palpation and Yes No hepatosplenomegaly present Neuro: OTHER: Patient has her eyes open but will not respond, patient only moans intermittently. Course 2 Vital Signs: Vital signs: Vital Signs Temperature 96.8 F L 06/03/23 00:45 Pulse Rate 89 06/03/23 00:48 Respiratory Rate 23 H 06/03/23 00:45 Blood Pressure 86/50 06/03/23 00:45 Pulse Oximetry 96 06/03/23 00:45 Oxygen Delivery Me thod Nasal Cannula 06/03/23 00:48 Oxygen Flow Rate 4 06/03/23 00:45 MDM - General Adult Medical Decision Making Patient presents to the ER with altered mental status. Patient has lab work that revealed a sodium greater than 182, BUN/creatinine 70 and 2.4, osmolality 393, phosphorus 5.0, troponin 49, patient's heart rate has been most of the time in the 90s however she has had frequent runs up in the 150s. It appears to be sinus tach on the monitor we did not catch on the EKG. EKG was sinus rhythm at a proximally [address] White was consulted and agreed to place the patient in ICU for further evaluation and treatment. We will consult nephrology to get their input. Dr. Tom notified Differential Diagnosis Altered mental status, dehydration, kidney injury, Medical Records I reviewed the patient's medical records. Lab Data I reviewed the patient's lab results. 06/02/23 20:12 06/03/23 01:52 Radiology Impressions Chest X-Ray 06/02/23 19:33 IMPRESSION: No acute findings. Abdomen/Pelvis CT 06/02/23 22:43 IMPRESSION: 1. Negative for focal acute inflammatory process in the abdomen or pelvis. 2. Emphysematous changes. 3. Left lower lobe atelectasis versus infiltrate. 4. Coronary artery atherosclerotic calcifications. 5. Left kidney nonobstructing calyceal stone. 6. Right kidney punctate nonobstructing calyceal stone. 7. Proximal bilateral renal artery calcifications with suspected 70-80% luminal narrowing. 8. Diverticulosis without diverticulitis. 9. Right femur surgical hardware appears in place. 10. Small umbilical hernia containing omentum without bowel. 11. Large hiatal hernia with atlantoaxial malrotation, please correlate clinically. Laboratory Results WBC 6.38 10^3/uL (3.29-11.43) 06/02/23 20:12 RBC 4.98 10^6/uL (3.85-5.65) 06/02/23 20:12 Hgb 14.00 g/dL (11.27-16.99) 06/02/23 20:12 Hct 51.8 % (36-47) H 06/02/23 20:12 MCV 104.0 fl (85-98) H 06/02/23 20:12 MCH 28.1 pg (27-33) 06/02/23 20:12 MCHC 27.0 g/dL (30-55) L 06/02/23 20:12 RDW 17.0 % (12.1-15.1) H 06/02/23 20:12 Plt Count 163 10^3/cmm (157-399) 06/02/23 20:12 MPV 13.7 fL (7.4-10.4) H 06/02/23 20:12 Neut % (Auto) 59.1 % 06/02/23 20:12 Lymph % (Auto) 27.6 % 06/02/23 20:12 Cross % (Auto) 10.8 % 06/02/23 20:12 Eos % (Auto) 1.4 % 06/02/23 20:12 Baso % (Auto) 0.8 % 06/02/23 20:12 Neut # (Auto) 3.77 10^3/uL (1.8-7.7) 06/02/23 20:12 Lymph # (Auto) 1.8 10^3/uL (0.8-4.8) 06/02/23 20:12 Cross # (Auto) 0.7 10^3/uL (0.2-0.9) 06/02/23 20:12 Eos # (Auto) 0.1 10^3/uL (0.0-0.8) 06/02/23 20:12 Baso # (Auto) 0.1 10^3/uL (0.0-0.1) 06/02/23 20:12 Nucleated RBC % (auto) 0.3 % 06/02/23 20:12 Nucleated RBCs # 0.0 /100WBC 06/02/23 20:12 Sodium > 185 mmol/L (136-145) H* 06/02/23 22:05 Potassium 4.7 mmol/L (3.5-5.1) 06/02/23 20:12 Chloride 146 mmol/L (98-107) H 06/02/23 20:12 Carbon Dioxide 22 mmol/L (22-29) 06/02/23 20:12 Anion Gap 18.7 (5-19) 06/02/23 20:12 BUN 70 mg/dL (8-23) H 06/02/23 20:12 Creatinine 2.4 mg/dL (0.5-0.9) H 06/02/23 20:12 GFR Calculation Not Reportable 06/02/23 20:12 Glucose 66 mg/dL (65-115) 06/02/23 20:12 Estimat Average Glucose 226 06/02/23 20:12 Hemoglobin A1c 9.5 % (4.0-6.0) H 06/02/23 20:12 Calculated Osmolality 393 mOsm/kg (285-295) H 06/02/23 20:12 Calcium 8.5 mg/dL (8.5-10.5) 06/02/23 20:12 Phosphorus 5.0 mg/dL (2.5-4.5) H 06/02/23 20:12 Magnesium 2.2 mg/dL (1.7-2.3) 06/02/23 20:12 Total Bilirubin 0.8 mg/dL (0.15-1.2) 06/02/23 20:12 AST 41 U/L (0-32) H 06/02/23 20:12 ALT 29 U/L (0-33) 06/02/23 20:12 Alkaline Phosphatase 83 U/L (35-105) 06/02/23 20:12 Troponin T Baseline 49 ng/L (0-10) H 06/02/23 20:12 Troponin T 120 Minute 47.89 ng/L (0-10) H 06/02/23 22:05 Delta Troponin T -1.11 ABS# (0-10) L 06/02/23 22:05 NT-Pro-B Natriuret Pep 1060 pg/mL (0-450) H 06/02/23 20:12 Total Protein 6.8 g/dL (6.6-8.7) 06/02/23 20:12 Albumin 3.3 g/dL (3.5-5.2) L 06/02/23 20:12 Globulin 3.5 g/dL (1.3-4.6) 06/02/23 20:12 Procalcitonin 0.22 ng/mL (0-0.5) 06/02/23 20:12 All radiology interpretation(s) finalized by discharge Critical Care Time 2 Critical Care Time: Critical Care Time: Yes Total Critical Care Time: 45 Attestation: The patient was emergently evaluated this patient's presentation and case had a high probability of a clinically significant, sudden, or life-threatening deterioration of the patient's initial critical presentation or condition which required my full and direct attention, intervention and personal management. Discharge Plan Discharge Patient Disposition: Admitted As Inpatient Admit Provider: Marlon Varner Clinical Impression: Acute hypernatremia, Acute dehydration, Acute renal failure, Altered mental status Condition: Stable Coding Level of Care Code ED [employer] for [employer] [facility]
[2023-06-02 20:03] VITALS: BP 115/63; PULSE 96; RESP 17; O2SAT 88
[2023-06-02 20:16] LABS: Basophils # 0.1 10^3/uL (0.0-0.1); Basophils % 0.8 %; Eosinophils # 0.1 10^3/uL (0.0-0.8); Eosinophils % 1.4 %; Hematocrit 51.8 % (36-47); Lymphocytes # 1.8 10^3/uL (0.8-4.8); Lymphocytes % 27.6 %; Mean Corpuscular Hemoglobin 28.1 pg (27-33); Mean Platelet Volume 13.7 fL (7.4-10.4); Monocytes # 0.7 10^3/uL (0.2-0.9); Monocytes % 10.8 %; Neutrophils # 3.77 10^3/uL (1.8-7.7); Neutrophils % 59.1 %; Nucleated Red Blood Cells % 0.3 %; Platelet Count 163 10^3/cmm (157-399); Red Blood Count 4.98 10^6/uL (3.85-5.65); White Blood Count 6.38 10^3/uL (3.29-11.43)
[2023-06-02 20:18] LABS: Slide Review Slide Review Perform
--- NOTE | 2023-06-02 20:29 | PC.NURSE ---
This nurse spoke with pt daughter Lisa Jules the DPOA and confirmed that pt is a DNR. Pt daughter DPOA Lisa Jules verbally confirmed via phone that pt is DNR, this nurse educated that CPR would not be preformed in the event of the pt coding, pt verbalized understanding. DNR on file from [facility].
[2023-06-02 20:34] LABS: Troponin(5th) Baseline 49 ng/L (0-10)
--- NOTE | 2023-06-02 20:43 | PC.NURSE ---
Spoke with Lisa Jules re: second verification of the patients DNR status. Daughter states, yes this is correct . SHe also said that she is currently at work until the morning.
[2023-06-02 20:50] LABS: Alanine Aminotransferase 29 U/L (0-33); Albumin Level 3.3 g/dL (3.5-5.2); Alkaline Phosphatase 83 U/L (35-105); Aspartate Amino Transferase 41 U/L (0-32); Blood Urea Nitrogen 70 mg/dL (8-23); Calcium 8.5 mg/dL (8.5-10.5); Carbon Dioxide 22 mmol/L (22-29); Globulin 3.5 g/dL (1.3-4.6); Glucose 66 mg/dL (65-115); Magnesium 2.2 mg/dL (1.7-2.3); Potassium 4.7 mmol/L (3.5-5.1); Total Bilirubin 0.8 mg/dL (0.15-1.2); Total Protein 6.8 g/dL (6.6-8.7)
[2023-06-02 21:03] VITALS: BP 116/76; PULSE 97; O2SAT 100
[2023-06-02] MEDS: sodium chloride 0.9% 1,000 ML 999 ML IV (21:04)
[2023-06-02 21:29] LABS: Anion Gap 18.7 (5-19); Chloride 146 mmol/L (98-107); Osmolality Calculated 393 mOsm/kg (285-295)
[2023-06-02 21:31] LABS: Sodium > 182 mmol/L (136-145)
[2023-06-02 22:30] VITALS: BP 117/79; PULSE 91; RESP 17; O2SAT 98
[2023-06-02 22:30] LABS: Troponin 5 2HR 47.89 ng/L (0-10)
[2023-06-02 22:31] LABS: Troponin 5 2HR Delta -1.11 ABS# (0-10)
--- NOTE | 2023-06-02 22:43 | CTR_ITS ---
PROCEDURE INFORMATION: Exam: CT Abdomen And Pelvis Without Contrast Exam date and time: 06/02/2023 11:33 PM Age: 78 years old Clinical indication: Abdominal pain; Patient HX: Patient is nonverbal; Additional info: Abd pain, TECHNIQUE: Imaging protocol: Computed tomography of the abdomen and pelvis without contrast. Radiation optimization: All CT scans at this facility use at least one of these dose optimization techniques: automated exposure control; mA and/or kV adjustment per patient size (includes targeted exams where dose is matched to clinical indication); or iterative reconstruction. COMPARISON: CR XR chest 1V portable [id number] 06/02/2023 7:52 PM RADIATION DOSE METRICS: Total DLP (mGy-cm): 899.43 FINDINGS: Lungs: Emphysematous changes. Left lower lobe atelectasis versus infiltrate. Coronary arteries: Coronary artery atherosclerotic calcifications. Liver: Normal. No mass. Gallbladder and bile ducts: Normal. No calcified stones. No ductal dilation. Pancreas: Normal. No ductal dilation. Spleen: Normal. No splenomegaly. Adrenal glands: Normal. No mass. Kidneys and ureters: Left kidney nonobstructing calyceal stone. Right kidney punctate nonobstructing calyceal stone. Stomach and bowel: Diverticulosis without diverticulitis. Appendix: No evidence of appendicitis. Intraperitoneal space: Unremarkable. No free air. No significant fluid collection. Vasculature: Proximal bilateral renal artery calcifications with suspected 70-80% luminal narrowing. Lymph nodes: Unremarkable. No enlarged lymph nodes. Urinary bladder: Unremarkable as visualized. Reproductive: Unremarkable as visualized. Bones/joints: Large hiatal hernia with atlantoaxial malrotation, please correlate clinically. Soft tissues: Small umbilical hernia containing omentum without bowel. CT/CT abdomen pelvis wo con [id number] IMPRESSION: 1. Negative for focal acute inflammatory process in the abdomen or pelvis. 2. Emphysematous changes. 3. Left lower lobe atelectasis versus infiltrate. 4. Coronary artery atherosclerotic calcifications. 5. Left kidney nonobstructing calyceal stone. 6. Right kidney punctate nonobstructing calyceal stone. 7. Proximal bilateral renal artery calcifications with suspected 70-80% luminal narrowing. 8. Diverticulosis without diverticulitis. 9. Right femur surgical hardware appears in place. 10. Small umbilical hernia containing omentum without bowel. 11. Large hiatal hernia with atlantoaxial malrotation, please correlate clinically.
[2023-06-02 22:44] VITALS: RESP 21
[2023-06-02] MEDS: morphine 4 mg/mL SDV 1 mL 1 MG IVP (22:44)
[2023-06-02 22:53] LABS: Sodium > 185 mmol/L (136-145)
--- NOTE | 2023-06-02 23:43 | P.HP_ITS ---
Providers/Chief Complaint 2 Admitting Physician: Marlon Varner MD Primary Care Provider: Shikha Campbell MD Chief Complaint: end of life History of Present Illness Debbie Jules is a 78 year old female with a past medical history of hypernatremia, metabolic encephalopathy, aspiration pneumonia, history of UTI, history of dementia, DNR/DNI, type 2 diabetes mellitus, who presents to [facility] due to altered mental status, currently patient's alert oriented x 0, does not follow commands does awaken to sternal rub, no significant tachypnea, no tachycardia lungs clear to auscultation all in all lung rodriguez blood pressure normotensive, pulse 91, respiratory 21, 2 L nasal cannula, Review of Systems 2 General: Reports: ROS unobtainable due to mental status Medications/Allergies Home Medications Medication Instructions Recorded Confirmed Last Taken Type bisacodyl 10 mg rectal suppository 10 mg MA Q12H PRN Constipation 11/16/22 04/23/23 Unknown History bisacodyl 5 mg tablet,delayed 10 mg PO DAILY PRN Constipation 11/16/22 04/23/23 Unknown History release docusate sodium 100 mg tablet 200 mg PO DAILY PRN Constipation 11/16/22 04/23/23 Unknown History food supplemt, lactose-reduced 60 ea PO 3XD 11/16/22 04/23/23 04/22/23 History lorazepam 0.5 mg tablet 0.5 mg PO DAILY PRN anxiety 11/16/22 04/23/23 04/22/23 History lovastatin 10 mg tablet 5 mg PO DAILY 11/16/22 04/23/23 04/22/23 History magnesium hydroxide 400 mg/5 mL 30 ml PO DAILY PRN Constipation 11/16/22 04/23/23 Unknown History oral suspension (Milk of Magnesia) omeprazole 20 mg capsule,delayed 20 mg PO QAM 11/16/22 04/23/23 04/22/23 History release acetaminophen 325 mg tablet 650 mg PO Q4H PRN Pain 04/23/23 04/23/23 Unknown History lactase 3,000 unit tablet (Lactaid) 1 unit PO TID 04/23/23 04/23/23 04/22/23 History metformin 500 mg tablet,extended 1,000 mg PO BEDTIME 12/22/23 12/22/23 12/21/23 History release 24 hr nystatin 100,000 unit/gram topical See Rx Instructions .Route .COMPLEX 04/23/23 04/23/23 04/22/23 History powder (Nyamyc) sitagliptin phosphate 50 mg tablet 50 mg PO DAILY 04/23/23 04/23/23 04/22/23 History (Januvia) Allergies Allergy/AdvReac Type Severity Reaction Status Date / Time cephalexin [From Keflex] Allergy Unknown Verified 03/22/23 08:45 PFSH Acute 2 PFSH: Medical History TIA (transient ischemic attack) Depression Anemia Dementia B12 deficiency Diabetes Vitals/I&O/Wt Last Vital Signs Temp 98.0 F 06/02/23 19:28 Pulse 91 06/02/23 22:30 Resp 21 H 06/02/23 22:44 BP 117/79 06/02/23 22:30 Pulse Ox 98 06/02/23 22:30 O2 Del Method Nasal Cannula 06/02/23 22:30 O2 Flow Rate 4 06/02/23 19:28 Weight last 48 hrs Weight 68.039 kg Physical Exam 2 Const: COMMON NORMALS: no acute distress ORIENTATION/CONSCIOUSNESS: Yes awake and Yes confused; not oriented to person, not oriented to place and not oriented to time Eye: COMMON NORMALS: Equal, round and reactive pupils present Resp: COMMON NORMALS: normal respiratory effort, No retractions, No use of accessory muscles and clear to auscultation bilaterally AUSCULTATION: clear to auscultation bilaterally Cardio: COMMON NORMALS: no JVD, regular rate, regular rhythm, S1 normal heart sound present and S2 normal heart sound present RATE: regular rate RHYTHM: regular rhythm HEART SOUNDS: S1 normal heart sound present and S2 normal heart sound present GI: OTHER: During abdominal examination, has diffuse abdominal tenderness to palpation, screams out in pain during abdominal palpation, no guarding, no rebound, no rigidity, does have diffuse tenderness, decreased bowel sounds in all 4 quadrants Extremity: COMMON NORMALS: no pedal edema Data 06/02/23 20:12 06/02/23 22:05 A&P Assessment and plan (1) Acute renal failure: Qualifiers: Acute renal failure type: unspecified Qualified Code(s): N17.9 - Acute kidney failure, unspecified (2) Acute hypernatremia: (3) Acute dehydration: (4) Altered mental status: Qualifiers: Altered mental status type: unspecified Qualified Code(s): R41.82 - Altered mental status, unspecified Plan Acute encephalopathy -Likely secondary to hypernatremia -Neurochecks, aspiration precautions, seizure precautions Hypovolemic hypernatremia -Free water deficit 10 L -Start D5 water, rate of correction 40 cc an hour will titrate from this, goal would be 85 cc an hour -Monitor serum sodium every 4 hours -Target serum correction is 0.5 mmol/h, 6 to 8 mmol in the next 24 hours -Nephrology consulted History of UTI, aspiration pneumonia -Obtain UA -Follow chest x-ray On examination has severe abdominal tenderness to palpation CT scan abdomen pelvis LELE likely sec to dehydration DNR/DNI History of dementia Will monitor in ICU due to severe hyponatremia requiring serum sodium monitoring D5 water nephrology consultation Attestations 2 Medical Necessity Statement*: Patient requires hospitalization, inpatient, greater than 2 minutes, due to hypovolemic hyponatremia, severe acute encephalopathy, LELE Coding Level of Care Code Critical Care >/= 30 minutes Critical care time (in minutes): 45 The high probability of a clinically significant, sudden or life threatening deterioration, as referenced in this documentation, required my full and direct attention, intervention and personal management. The critical care time shown is in addition to time spent performing any reported separately billable procedures and includes the following: [x] Data and vital sign review and interpretation [x ] Patient assessment, examination and intervention [x] Medication orders and management [x] Patient/Family updates as able [x] Care Coordination and Documentation. Diagnoses Acute renal failure N17.9 Acute renal failure type: unspecified Acute hypernatremia E87.0 Acute dehydration E86.0 Altered mental status R41.82 Altered mental status type: unspecified
[2023-06-03] VITALS (84 sets, daily range): BP systolic 67–126; BP diastolic 29–76; PULSE 59–151; RESP 9–29; TEMP 36–38.4; O2SAT 86–100
[2023-06-03 00:16] LABS: NT Pro B Type Natriuretic Pept 1060 pg/mL (0-450); Procalcitonin 0.22 ng/mL (0-0.5)
[2023-06-03] MEDS: dextrose 5% 1,000 ML 40 ML IV (00:54)
[2023-06-03 01:04] LABS: Urine Color Dark Yellow (Yellow)
[2023-06-03 01:05] LABS: Add Urine Microscopic? YES; Bilirubin Urine 1+ (Negative); Blood Urine 2+ (Negative); Glucose Urine UA Norm (Normal); Ketones Urine 1+ (Negative); Leukocyte Esterase Urine 2+ (Negative); Nitrate Urine Positive (Negative); Protein Urine 1+ (Negative); Specific Gravity, Urine 1.025 (1.005-1.030); Urine Appearance Cloudy (CLEAR); Urobilinogen Urine 4 mg/dL (Negative); pH Urine 5 (5-7)
[2023-06-03 01:06] LABS: Add Urine Culture? Yes; Bacteria Urine 4+ /hpf; Mucus Urine 2+ /hpf; Squamous Epithelial Cell Urine 0-4 /hpf (0-5); WBC Urine 25-40 /hpf (0-5)
[2023-06-03] MEDS: pantoprazole 40 mg SDV IVP ×2 (01:07→23:54)
[2023-06-03 01:37] LABS: Estmated Average Glucose 226; Hemoglobin A1C 9.5 % (4.0-6.0)
[2023-06-03 02:24] LABS: Troponin 5 6HR 47.86 ng/L (0-10)
[2023-06-03 02:25] LABS: Lactic Sepsis W/Reflex 2.1 mmol/L (0.5-2.2)
[2023-06-03 02:30] LABS: NT Pro B Type Natriuretic Pept 906 pg/mL (0-450)
[2023-06-03 02:31] LABS: Troponin 5 6HR Delta -1.14 ng/L (0-12)
[2023-06-03] MEDS: meropenem 500 MG in sodium chloride 0.9% (plus) 50 ML 100 MG IV ×2 (02:57→15:58)
[2023-06-03] MEDS: norepinephrine 4 MG/250 ML BAG 7.5 MG IV (03:02)
[2023-06-03 03:46] LABS: Reflex Lactate Order REFLEX LACTIC ORDERD
[2023-06-03 05:23] LABS: Lactic Acid level (Lactate) 2.7 mmol/L (0.5-2.2)
[2023-06-03 05:59] LABS: Basophils # 0.1 10^3/uL (0.0-0.1); Basophils % 0.9 %; Eosinophils # 0.1 10^3/uL (0.0-0.8); Eosinophils % 1.3 %; Hematocrit 49.5 % (36-47); Lymphocytes # 1.9 10^3/uL (0.8-4.8); Lymphocytes % 21.9 %; Mean Corpuscular HGB Conc 26.3 g/dL (30-55); Mean Corpuscular Hemoglobin 28.6 pg (27-33); Mean Corpuscular Volume 108.8 fl (85-98); Mean Platelet Volume 13.8 fL (7.4-10.4); Monocytes # 0.7 10^3/uL (0.2-0.9); Monocytes % 8.3 %; Neutrophils # 5.76 10^3/uL (1.8-7.7); Neutrophils % 67.2 %; Nucleated Red Blood Cells % 0.2 %; Platelet Count 164 10^3/cmm (157-399); Red Blood Count 4.55 10^6/uL (3.85-5.65); Red Cell Distribution Width 16.8 % (12.1-15.1); White Blood Count 8.57 10^3/uL (3.29-11.43)
[2023-06-03 06:19] LABS: Alanine Aminotransferase 23 U/L (0-33); Albumin Level 2.9 g/dL (3.5-5.2); Alkaline Phosphatase 79 U/L (35-105); Aspartate Amino Transferase 34 U/L (0-32); Blood Urea Nitrogen 70 mg/dL (8-23); Calcium 8.5 mg/dL (8.5-10.5); Carbon Dioxide 19 mmol/L (22-29); Globulin 3.9 g/dL (1.3-4.6); Glucose 153 mg/dL (65-115); Magnesium 2.2 mg/dL (1.7-2.3); Phosphorus 4.1 mg/dL (2.5-4.5); Potassium 4.5 mmol/L (3.5-5.1); Total Bilirubin 0.7 mg/dL (0.15-1.2); Total Protein 6.8 g/dL (6.6-8.7)
[2023-06-03 07:11] LABS: Osmolality Calculated 398 mOsm/kg (285-295); Sodium > 182 mmol/L (136-145)
[2023-06-03 07:12] LABS: Anion Gap 21.5 (5-19)
--- NOTE | 2023-06-03 07:21 | P.CONIM_ITS ---
Providers/Reason For Consult 2 Consulting Physician/Specialty*: kommana/Nephrology Reason for Consult*: Hypernatremia Attending Physician: Marlon Varner MD Primary Care Provider: Shikha Campbell MD History of Present Illness History of Present Illness Debbie Jules is a 78 year old female Patient is a 78-year-old female with multiple medical problems including diabetes, advanced dementia, hypertension, [facility] resident was sent to the emergency department due to poor p.o. intake altered mental status and possible end-of-life status. Lab data significant for sodium levels of more than 184 . Creatinine was 2.4. It was reported that patient had not been eating and drinking for the last several days. Patient currently admitted to the ICU, blood pressures were low and started on pressors. Review of Systems 2 Narrative: Unable to obtain from patient Medications/Allergies Home Medications Medication Instructions Recorded Confirmed Last Taken Type bisacodyl 10 mg rectal suppository 10 mg [place] Q12H PRN Constipation 11/16/22 04/23/23 Unknown History bisacodyl 5 mg tablet,delayed 10 mg PO DAILY PRN Constipation 11/16/22 04/23/23 Unknown History release docusate sodium 100 mg tablet 200 mg PO DAILY PRN Constipation 11/16/22 04/23/23 Unknown History food supplemt, lactose-reduced 60 ea PO 3XD 11/16/22 04/23/23 04/22/23 History lorazepam 0.5 mg tablet 0.5 mg PO DAILY PRN anxiety 11/16/22 04/23/23 04/22/23 History lovastatin 10 mg tablet 5 mg PO DAILY 11/16/22 04/23/23 04/22/23 History magnesium hydroxide 400 mg/5 mL 30 ml PO DAILY PRN Constipation 11/16/22 04/23/23 Unknown History oral suspension (Milk of Magnesia) omeprazole 20 mg capsule,delayed 20 mg PO QAM 11/16/22 04/23/23 04/22/23 History release acetaminophen 325 mg tablet 650 mg PO Q4H PRN Pain 04/23/23 04/23/23 Unknown History lactase 3,000 unit tablet (Lactaid) 1 unit PO TID 04/23/23 04/23/23 04/22/23 History metformin 500 mg tablet,extended 1,000 mg PO BEDTIME 04/23/23 04/23/23 04/22/23 History release 24 hr nystatin 100,000 unit/gram topical See Rx Instructions .Route .COMPLEX 04/23/23 04/23/23 04/22/23 History powder (Nyamy) sitagliptin phosphate 50 mg tablet 50 mg PO DAILY 04/23/23 04/23/23 04/22/23 History (Januvia) Allergies Allergy/AdvReac Type Severity Reaction Status Date / Time cephalexin [From Keflex] Allergy Unknown Verified 03/22/23 08:45 Current Medications Generic Name Dose Route Start Last Admin Trade Name Freq PRN Reason Stop Dose Admin norepinephrine 4 mg in 250 mls @ 0 mls/hr 06/03/23 01:30 06/03/23 03:18 Levophed IV 4 mcg/min .Q0M MILLER 15 mls/hr Titration Protocol Per Protocol Meropenem 500 mg/ Sodium 50 mls @ 100 mls/hr 06/03/23 03:00 06/03/23 03:30 Chloride IV Infused Q12H MILLER Infusion Pantoprazole Sodium 40 mg 06/03/23 00:24 06/03/23 01:07 Pantoprazole 40 Mg Sdv IVP 40 mg Q24H MILLER Administration PFSH Acute 2 PFSH: Medical History TIA (transient ischemic attack) Depression Anemia Dementia B12 deficiency Diabetes Vitals/I&O/Wt Last Vital Signs Temp 98.7 F 06/03/23 04:00 Pulse 90 06/03/23 06:00 Resp 17 06/03/23 04:15 BP 108/46 06/03/23 04:15 Pulse Ox 93 06/03/23 04:15 O2 Del Method Room Air 06/03/23 04:00 O2 Flow Rate 2 06/03/23 02:00 06/02/23 06/03/23 06/03/23 22:59 06:59 14:59 Intake Total 1000 / 1000 52 / 1052 256.667 / 256.667 Output Total 250 / 250 Balance 1000 / 1000 -198 / 802 256.667 / 256.667 Weight last 48 hrs Weight 47.627 kg Weight 44.543 kg Weight 68.039 kg Physical Exam 2 Narrative: Nonresponsive, no distress Urinary Catheter Management: Wynne: Cath Placed During This Visit: yes Reason for Continuing Indwelling Catheter: Accurate Measurement of Urinary Output in Critically Ill Patients Urinary Catheter Date of Insertion: 06/03/23 Urinary Catheter Time of Insertion: 00:05 Data 06/03/23 05:52 06/03/23 05:52 A&P Assessment and plan (1) Acute renal failure: Qualifiers: Acute renal failure type: unspecified Qualified Code(s): N17.9 - Acute kidney failure, unspecified (2) Acute hypernatremia: Plan 1. Acute severe hypernatremia: Sodium level severely high more than 184 on presentation. This is due to severe free water deficit due to poor intake for prolonged period. -On D5W at 125 cc an hour currently -Patient with overall poor prognosis due to advanced dementia and poor intake. -Recommend goals of care discussion, if family wants to continue supportive care, patient should get a G-tube. Otherwise patient seems to be appropriate for comfort care hospice care. 2. Acute kidney injury: Likely secondary to prerenal, , Baseline creatinine is normal at 0.7 about a month ago 3. Urinary tract infection 4. Metabolic acidosis, mild monitor Consult Attestations 2 Medical Necessity Statement: Per medicine team Coding Level of Care Code Acute Code for Chg Fwd Diagnoses Acute renal failure N17.9 Acute renal failure type: unspecified Acute hypernatremia E87.0
--- NOTE | 2023-06-03 08:09 | PC.PHAR ---
pt is from [facility]-checking chart in icu to see if mar and tar was sent
[2023-06-03] MEDS: insulin lispro 100 unit/1 mL SUBCUT ×3 (09:02→17:56)
[2023-06-03] MEDS: enoxaparin 30 mg/0.3 mL Syringe SUBCUT (09:02)
--- NOTE | 2023-06-03 09:10 | PC.PHAR ---
Addendum entered by Erica Green 06/03/23 10:51: medications entered are from the pts [facility]-per tisha states some of the pts medications are on hold as of 06/01/23 notes are made in the pharmacy comments with what meds were on hold Original Note: pt is from [facility] [phone] in icu chart for mar and tar no mar and tar was in chart-called [facility] for mar and tar per jaimee butler rn states will fax mar and tar
--- NOTE | 2023-06-03 10:27 | PC.NURSE ---
10:13 Pt's heart rhythm went into SVT, rate 155. This nurse went into room and she had converted bck into sius rhythm.. Levopehd gtt stopped. Temp. rechecked, it has decreased to 99.7.
--- NOTE | 2023-06-03 11:23 | P.PN_ITS ---
Subjective 2 Subjective: Seen today. No acute events overnight. Sodium still greater than 184. Vitals/I&O/Wt Last Vital Signs Temp 99.7 F H 06/03/23 10:15 Pulse 151 H 06/03/23 10:15 Resp 16 06/03/23 10:15 BP 110/57 06/03/23 10:15 Pulse Ox 97 06/03/23 10:15 O2 Del Method Nasal Cannula 06/03/23 10:15 O2 Flow Rate 2 06/03/23 10:15 06/02/23 06/03/23 06/03/23 22:59 06:59 14:59 Intake Total 1000 / 1000 52 / 1052 350.917 / 350.917 Output Total 250 / 250 Balance 1000 / 1000 -198 / 802 350.917 / 350.917 Weight last 48 hrs Weight 47.627 kg Weight 44.543 kg Weight 68.039 kg Physical Exam 2 Const: COMMON NORMALS: no acute distress ORIENTATION/CONSCIOUSNESS: Yes awake and Yes confused; not oriented to person, not oriented to place and not oriented to time Eye: COMMON NORMALS: Equal, round and reactive pupils present PUPIL: Yes Equal, round and reactive pupils present Neck/C-Spine: COMMON NORMALS: no JVD Resp: COMMON NORMALS: normal respiratory effort, No retractions, No use of accessory muscles and clear to auscultation bilaterally AUSCULTATION: clear to auscultation bilaterally Cardio: COMMON NORMALS: no JVD, regular rate, regular rhythm, S1 normal heart sound present and S2 normal heart sound present RATE: regular rate RHYTHM: regular rhythm HEART SOUNDS: S1 normal heart sound present and S2 normal heart sound present GI: OTHER: moans when palpated but i this may be her baseline. Extremity: COMMON NORMALS: no pedal edema Neuro: SENSORIUM/ORIENTATION: No oriented to person, No oriented to place and No oriented to time Urinary Catheter Management: Wynne: Cath Placed During This Visit: yes Reason for Continuing Indwelling Catheter: Accurate Measurement of Urinary Output in Critically Ill Patients Urinary Catheter Date of Insertion: 06/03/23 Urinary Catheter Time of Insertion: 00:05 Data 06/03/23 05:52 06/03/23 05:52 A&P Assessment and plan (1) Acute renal failure: Qualifiers: Acute renal failure type: unspecified Qualified Code(s): N17.9 - Acute kidney failure, unspecified (2) Acute hypernatremia: (3) Acute dehydration: (4) Altered mental status: Qualifiers: Altered mental status type: unspecified Qualified Code(s): R41.82 - Altered mental status, unspecified Plan Acute encephalopathy -Likely secondary to hypernatremia -Neurochecks, aspiration precautions, seizure precautions Hypovolemic hypernatremia -Free water deficit 10 L -Continue D5 water, rate of correction 40 cc an hour will titrate from this, goal would be 85 cc an hour -Monitor serum sodium every 4 hours -Target serum correction is 0.5 mmol/h, 6 to 8 mmol in the next 24 hours -Nephrology consulted History of UTI, aspiration pneumonia -Obtain UA -Follow chest x-ray On examination has severe abdominal tenderness to palpation CT scan abdomen pelvis LELE likely sec to dehydration DNR/DNI History of dementia Will monitor in ICU due to severe hyponatremia requiring serum sodium monitoring D5 water nephrology consultation continue ICU mgmt for hypernatremia Attestations 2 Medical Necessity Statement*: Patient requires hospitalization, inpatient, greater than 2 minutes, due to hypovolemic hyponatremia, severe acute encephalopathy, LELE Diagnoses Acute renal failure N17.9 Acute renal failure type: unspecified Acute hypernatremia E87.0 Acute dehydration E86.0 Altered mental status R41.82 Altered mental status type: unspecified
[2023-06-03 11:31] LABS: Glucose Point of Care 167 mg/dL (70-110)
[2023-06-03 11:31] LABS: Glucose Point of Care 226 mg/dL (70-110)
[2023-06-03 11:45] LABS: Sodium 176 mmol/L (136-145)
--- NOTE | 2023-06-03 12:55 | ECG_ITS ---
[facility] Test Date: 2023-06-03 Pat Name: Debbie Jules Department: Room: [facility] Gender: Female [employer] Supervisor: : [id number] Requested By: Conchita Perkins Order Number: [id number] Santy MD: Babatunde Yoder M.D. Measurements Intervals [place] Rate: 147 P: 0 ID: 0 QRS: 88 QRSD: 119 T: -22 QT: 315 QTc: 493 Interpretive Statements ATIRAL FIBRILLATION WITH RVR RIGHT BUNDLE BRANCH BLOCK Compared to ECG 06/02/2023 20:29:09 Sinus rhythm no longer present Electronically Signed On 06-03-2023 13:40:02 [employer] by Babatunde Ydoer M.D. [id number]
[2023-06-03] MEDS: sodium chloride 0.9% 250 ML IV (13:14)
[2023-06-03] MEDS: metoprolol tartrate 1 mg/1 mL SDV 5 mL 2.5 MG IVP (13:14)
[2023-06-03] MEDS: dextrose 5% 1,000 ML 125 ML IV ×2 (13:26→20:57)
[2023-06-03] MEDS: vancomycin 750 MG in sodium chloride 0.9% 250 ML 250 MG IV (13:28)
[2023-06-03 14:47] LABS: Sodium 173 mmol/L (136-145)
[2023-06-03] MEDS: amiodarone 150 MG/100 ML PREMIX 400 MG IV (17:05)
[2023-06-03 17:52] LABS: Glucose Point of Care 245 mg/dL (70-110)
[2023-06-03] MEDS: norepinephrine 4 MG/250 ML BAG 26.25 MG IV (17:58)
--- NOTE | 2023-06-03 18:10 | PC.NURSE ---
Shift summary: Pt rested in bed throughout the shift. She yells out incomprehensible sounds during repositioning, or needle sticks, etc. Her BP has been labile. Levophed has infusing off and on, adjusting per protocol and BP. It is now infusing at 7mcg/min. Her heart rhythm started out sinus, she a a small run of SVT this am ( Levophed stopped the first time for this). Then it was in and out of Afib. Amio bolus given and gtt started , now at 1mg/hr. She has been febrile off and on this shift too, her highest temp 101.2. Urine outout of 450ml dark yellow urine noted. Daughters, Sabrina and Lisa both called for updates, updates provided.
[2023-06-03 20:45] LABS: Sodium 167 mmol/L (136-145)
[2023-06-03 20:54] LABS: Glucose Point of Care 237 mg/dL (70-110)
[2023-06-03 22:30] LABS: Sodium 168 mmol/L (136-145)
[2023-06-04] VITALS (74 sets, daily range): BP systolic 62–146; BP diastolic 32–101; PULSE 60–132; RESP 0–28; TEMP 36.9–37.2; O2SAT 91–100
[2023-06-04] MEDS: morphine 4 mg/mL SDV 1 mL 2 MG IVP ×2 (01:40→22:36)
[2023-06-04] MEDS: meropenem 500 MG in sodium chloride 0.9% (plus) 50 ML 100 MG IV ×2 (03:21→14:22)
[2023-06-04] MEDS: norepinephrine 4 MG/250 ML BAG 18.75 MG IV (03:52)
[2023-06-04] MEDS: dextrose 5% 1,000 ML 125 ML IV (04:51)
[2023-06-04 05:23] LABS: Basophils % 0.6 %; Eosinophils # 0.1 10^3/uL (0.0-0.8); Eosinophils % 2.1 %; Hematocrit 42.2 % (36-47); Lymphocytes # 1.8 10^3/uL (0.8-4.8); Lymphocytes % 26.1 %; Mean Corpuscular HGB Conc 28.2 g/dL (30-55); Mean Corpuscular Hemoglobin 28.5 pg (27-33); Mean Corpuscular Volume 101.2 fl (85-98); Mean Platelet Volume 13.5 fL (7.4-10.4); Monocytes # 0.5 10^3/uL (0.2-0.9); Monocytes % 7.3 %; Neutrophils # 4.31 10^3/uL (1.8-7.7); Neutrophils % 63.3 %; Nucleated Red Blood Cells % 0.4 %; Platelet Count 135 10^3/cmm (157-399); Red Blood Count 4.17 10^6/uL (3.85-5.65); Red Cell Distribution Width 15.9 % (12.1-15.1); White Blood Count 6.81 10^3/uL (3.29-11.43)
[2023-06-04 05:43] LABS: Anion Gap 15.2 (5-19); Blood Urea Nitrogen 46 mg/dL (8-23); Calcium 8.1 mg/dL (8.5-10.5); Carbon Dioxide 21 mmol/L (22-29); Chloride 127 mmol/L (98-107); Glucose 396 mg/dL (65-115); Magnesium 1.9 mg/dL (1.7-2.3); Osmolality Calculated 358 mOsm/kg (285-295); Phosphorus 1.7 mg/dL (2.5-4.5); Potassium 3.2 mmol/L (3.5-5.1); Sodium 160 mmol/L (136-145)
[2023-06-04 07:47] LABS: Glucose Point of Care 348 mg/dL (70-110)
[2023-06-04] MEDS: enoxaparin 30 mg/0.3 mL Syringe SUBCUT (08:41)
[2023-06-04] MEDS: insulin lispro 100 unit/1 mL SUBCUT ×3 (08:41→18:19)
--- NOTE | 2023-06-04 09:20 | P.PN_ITS ---
Subjective 2 Subjective: events noted Medications: Reviewed: Yes Vitals/I&O/Wt Last Vital Signs Temp 98.8 F 06/04/23 08:15 Pulse 70 06/04/23 08:15 Resp 28 H 06/04/23 08:15 BP 98/44 06/04/23 08:15 Pulse Ox 91 06/04/23 08:15 O2 Del Method Room Air 06/04/23 08:15 O2 Flow Rate 2 06/04/23 04:00 06/03/23 06/04/23 06/04/23 22:59 06:59 14:59 Intake Total 1209.083 / 2837.583 1625.473 / 4463.056 21.5 / 21.5 Output Total 450 / 450 375 / 825 Balance 759.083 / 2387.583 1250.473 / 3638.056 21.5 / 21.5 Weight last 48 hrs Weight 53.977 kg Weight 47.627 kg Weight 44.543 kg Weight 68.039 kg Physical Exam 2 Narrative: somnolent Urinary Catheter Management: Wynne: Cath Placed During This Visit: yes Reason for Continuing Indwelling Catheter: Accurate Measurement of Urinary Output in Critically Ill Patients Urinary Catheter Date of Insertion: 06/03/23 Urinary Catheter Time of Insertion: 00:05 Data 06/04/23 04:55 06/04/23 04:55 A&P Assessment and plan (1) Acute renal failure: Qualifiers: Acute renal failure type: unspecified Qualified Code(s): N17.9 - Acute kidney failure, unspecified (2) Acute hypernatremia: Plan 1. Acute severe hypernatremia: Sodium level severely high more than 184 on presentation. This is due to severe free water deficit due to poor intake for prolonged period. -On D5W at 125 cc an hour currently -Patient with overall poor prognosis due to advanced dementia and poor intake. -Recommend goals of care discussion, if family wants to continue supportive care, patient should get a G-tube. Otherwise patient seems to be appropriate for comfort care hospice care. 2. Acute kidney injury: Likely secondary to prerenal, , Baseline creatinine is normal at 0.7 about a month ago, cr improving 3. Urinary tract infection 4. Metabolic acidosis, mild monitor Attestations 2 Medical Necessity Statement*: per medicne Coding Level of Care Code Acute Code for Chg Fwd Diagnoses Acute renal failure N17.9 Acute renal failure type: unspecified Acute hypernatremia E87.0
--- NOTE | 2023-06-04 10:05 | XR_ITS ---
WS: [id number] Portable AP semiupright chest, 06/04/2023 Clinical Data: Post PICC insertion Comparison: Portable chest, 06/02/2023 Findings: The right PICC line enters the superior vena cava and ends in the midportion. No pneumothor ax is seen. The remainder of the chest is unremarkable. Impression: Satisfactory insertion of right PICC line.
--- NOTE | 2023-06-04 10:30 | PC.NURSE ---
Triple lumen PICC placed to right basilic vein. Referred to vascular access nurse due to need for vasopressors. Pt with history of dementia. Discussed risks and benefits and obtained informed consent from patient daughter, Lisa, via phone. Right arm assessed with right basilic vein measuring 3.5 mm, straight, and apparent best choice for placement. Using sterile technique and MST, right basilic vein accessed x 1 stick. Mid-arm circumference measured 10 cm from right AC 31 cm. Trimmed cath 34 cm with 0 cm external length noted. CXR shows tip in SVC, in satisfactory position for use per radiologist. Line secured with stat-lock. Insertion site covered with Biopatch and TSM. Report given to bedside nurseJeny.
--- NOTE | 2023-06-04 11:41 | P.PN_ITS ---
Subjective 2 Subjective: Seen this morning. I believe patient will be at baseline mental status at this time. On 5 of Levophed. Urine growing gram-negative rods. Sodium 160 this morning. Vitals/I&O/Wt Last Vital Signs Temp 98.8 F 06/04/23 08:15 Pulse 70 06/04/23 10:00 Resp 17 06/04/23 10:00 BP 93/37 06/04/23 10:00 Pulse Ox 94 06/04/23 08:45 O2 Del Method Room Air 06/04/23 08:45 O2 Flow Rate 2 06/04/23 04:00 06/03/23 06/04/23 06/04/23 22:59 06:59 14:59 Intake Total 1209.083 / 2837.583 1625.473 / 4463.056 45.313 / 45.313 Output Total 450 / 450 375 / 825 Balance 759.083 / 2387.583 1250.473 / 3638.056 45.313 / 45.313 Weight last 48 hrs Weight 53.977 kg Weight 47.627 kg Weight 44.543 kg Weight 68.039 kg Physical Exam 2 Const: COMMON NORMALS: no acute distress ORIENTATION/CONSCIOUSNESS: Yes awake and Yes confused; not oriented to person, not oriented to place and not oriented to time Eye: COMMON NORMALS: Equal, round and reactive pupils present PUPIL: Yes Equal, round and reactive pupils present Neck/C-Spine: COMMON NORMALS: no JVD Resp: COMMON NORMALS: normal respiratory effort, No retractions, No use of accessory muscles and clear to auscultation bilaterally AUSCULTATION: clear to auscultation bilaterally Cardio: COMMON NORMALS: no JVD, regular rate, regular rhythm, S1 normal heart sound present and S2 normal heart sound present RATE: regular rate RHYTHM: regular rhythm HEART SOUNDS: S1 normal heart sound present and S2 normal heart sound present GI: OTHER: moans when palpated but i this may be her baseline. Extremity: COMMON NORMALS: no pedal edema Neuro: SENSORIUM/ORIENTATION: No oriented to person, No oriented to place and No oriented to time Urinary Catheter Management: Wynne: Cath Placed During This Visit: yes Reason for Continuing Indwelling Catheter: Accurate Measurement of Urinary Output in Critically Ill Patients Urinary Catheter Date of Insertion: 06/03/23 Urinary Catheter Time of Insertion: 00:05 Data 06/04/23 04:55 06/04/23 04:55 Micro: Microbiology 06/03/23 00:35 Urine Culture - Preliminary Urine,Clean Catch Gram Negative Rods A&P Assessment and plan (1) Acute renal failure: Qualifiers: Acute renal failure type: unspecified Qualified Code(s): N17.9 - Acute kidney failure, unspecified (2) Acute hypernatremia: (3) Acute dehydration: (4) Altered mental status: Qualifiers: Altered mental status type: unspecified Qualified Code(s): R41.82 - Altered mental status, unspecified (5) Hypophosphatemia: (6) Hypokalemia: (7) Septic shock: (8) Severe dementia: (9) Severe protein-calorie malnutrition: (10) Acute hypernatremia: (11) Acute renal insufficiency: (12) LELE (acute kidney injury): (13) Altered mental status: Qualifiers: Altered mental status type: delirium Qualified Code(s): R41.0 - Disorientation, unspecified (14) Dehydration: (15) Fall: (16) Pneumonia: Qualifiers: Laterality: right Lung location: lower lobe of lung Pneumonia type: d ue to unspecified organism Qualified Code(s): J18.9 - Pneumonia, unspecified organism (17) UTI (urinary tract infection): Plan Septic shock secondary to UTI, aspiration pneumonia Acute metabolic encephalopathy secondary to above with a component of underlying known dementia Severe hyponatremia, hypovolemic LELE secondary to dehydration End stage dementia Hypokalemia Hypophosphatemia Comfort care status at custodial - Neurochecks, aspiration precautions, seizure precautions - Urine culture positive for gram-negative rods ? Levophed at 5. We are finally starting to come down on dose. ? Continue on amiodarone drip at this time. Patient is NPO. Amio drip turned off this AM. - 10L free water deficit - Check BMP q4H - Continue D5W ate of correction 40 cc an hour will titrate from this, goal would be 85 cc an hour - Monitor serum sodium every 4 hours - Target serum correction is 0.5 mmol/h, 6 to 8 mmol in the next 24 hours - Nephrology consulted - CT abd pelvis done: 1. Negative for focal acute inflammatory process in the abdomen or pelvis. 2. Emphysematous changes. 3. Left lower lobe atelectasis versus infiltrate. 4. Coronary artery atherosclerotic calcifications. 5. Left kidney nonobstructing calyceal stone. 6. Right kidney punctate nonobstructing calyceal stone. 7. Proximal bilateral renal artery calcifications with suspected 70-80% luminal narrowing. 8. Diverticulosis without diverticulitis. 9. Right femur surgical hardware appears in place. 10. Small umbilical hernia containing omentum without bowel. 11. Large hiatal hernia with atlantoaxial malrotation, please correlate clinically. - Replete K and phos today - Will need to have a goals of care discussion. - talked with RN, case management in details DNR/DNI Patient was comfort care at custodial. Will discuss with family regarding goals of care. Attestations 2 Medical Necessity Statement*: Patient requires hospitalization, inpatient, greater than 2 minutes, due to hypovolemic hyponatremia, severe acute encephalopathy, LELE Critical Care Time: The high probability of a clinically significant, sudden or life threatening deterioration of the patient's [cardiovascular,renal,central nervous system] system(s) required my full and direct attention, intervention and personal management. The critical care time is as shown. This time is in addition to time spent performing any reported procedures but includes the following: [x] Data and vital sign review and interpretation [x] Patient assessment, examination and intervention [x] Documentation [x] Medication orders and management Critical Care Time (min): 45 Coding Level of Care Code Critical Care >/= 30 minutes Critical care time (in minutes): 45 The high probability of a clinically significant, sudden or life threatening deterioration, as referenced in this documentation, required my full and direct attention, intervention and personal management. The critical care time shown is in addition to time spent performing any reported separately billable procedures and includes the following: [x] Data and vital sign review and interpretation [x ] Patient assessment, examination and intervention [x] Medication orders and management [x] Patient/Family updates as able [x] Care Coordination and Documentation. Diagnoses Acute renal failure N17.9 Acute renal failure type: unspecified Acute hypernatremia E87.0 Acute dehydration E86.0 Altered mental status R41.82 Altered mental status type: unspecified Hypophosphatemia E83.39 Hypokalemia E87.6 Septic shock A41.9; R65.21 Severe dementia F03.C0 Severe protein-calorie malnutrition E43 Acute renal insufficiency N28.9 LELE (acute kidney injury) N17.9 Dehydration E86.0 Fall W19.XXXA Pneumonia J18.9 Laterality: right Lung location: lower lobe of lung Pneumonia type: due to unspecified organism UTI (urinary tract infection) N39.0
[2023-06-04 11:48] LABS: Glucose Point of Care 409 mg/dL (70-110)
--- NOTE | 2023-06-04 13:06 | PC.SOCIAL ---
IMM Update pg 2 of IMM updated and reviewed w/ patients DPOA (Lisa), copy left @ bedside and copy dated, initialed and placed in chart.
[2023-06-04] MEDS: potassium phosphate (mEq K) 40 MEQ in sodium chloride 0.9% (100 ml) 100 ML 27.27 MEQ IV (14:22)
[2023-06-04] MEDS: dextrose 5% 1,000 ML 80 ML IV (14:23)
[2023-06-04] MEDS: norepinephrine 4 MG/250 ML BAG 33.75 MG IV (16:42)
[2023-06-04 17:52] LABS: Glucose Point of Care 156 mg/dL (70-110)
--- NOTE | 2023-06-04 19:09 | PC.NURSE ---
Shift summary: Pt rested in bed throughout shift. she would move her arms and hands and raely her feet. Repositioning was provided at least every 2 hours for her. Oral care provided as well, sometimes she would chew on swab sometimes she would cry at the intrusion. She does cry out during some care. Stroking her head soothes her. She did make long eye contact and her face lit up at the site of adult grandchildren. Her heart rhythm has been stable today, sinus rhythm rate 70-80's. Her BP would be high enough to start weaning Levophed then drop again. At this time her Levophed is infusing ay 9 mcg/min. Amiodarone has remained off since before this shift. She received potassium phosphate replacement today. PICC place today in right basilic vein. She tolerated it well. Her blood sugars increased significantly since yesterday. The highest was 409mg/dl. Her sliding scale was increased to moderate and the D5W decreased to 80ml/hr. That resulted in an improved blood sugar at dinner time check: 156. No Bm noted today. Pt had 450 of pale yellow urine, much clearer today.
[2023-06-04 20:15] LABS: Glucose Point of Care 191 mg/dL (70-110)
[2023-06-05] VITALS (56 sets, daily range): BP systolic 65–131; BP diastolic 33–71; PULSE 62–120; RESP 12–31; TEMP 36.2–37.9; O2SAT 91–100
[2023-06-05] MEDS: pantoprazole 40 mg SDV IVP (00:21)
[2023-06-05] MEDS: morphine 4 mg/mL SDV 1 mL 1 MG IVP (00:21)
[2023-06-05] MEDS: norepinephrine 4 MG/250 ML BAG 15 MG IV (01:19)
[2023-06-05] MEDS: dextrose 5% 1,000 ML 80 ML IV (02:08)
[2023-06-05] MEDS: meropenem 500 MG in sodium chloride 0.9% (plus) 50 ML 100 MG IV ×2 (02:22→14:42)
[2023-06-05] MEDS: morphine 4 mg/mL SDV 1 mL 2 MG IVP ×2 (02:22→06:00)
[2023-06-05] MEDS: LORazepam 2 mg/mL INJ 10 mL MDV 1 MG IVP (03:03)
[2023-06-05 04:27] LABS: Basophils % 0.4 %; Eosinophils # 0.2 10^3/uL (0.0-0.8); Eosinophils % 2.2 %; Lymphocytes # 2.1 10^3/uL (0.8-4.8); Lymphocytes % 28.9 %; Mean Corpuscular HGB Conc 29.2 g/dL (30-55); Mean Corpuscular Hemoglobin 28.4 pg (27-33); Mean Corpuscular Volume 97.2 fl (85-98); Mean Platelet Volume 13.7 fL (7.4-10.4); Monocytes # 0.5 10^3/uL (0.2-0.9); Monocytes % 7.4 %; Neutrophils # 4.38 10^3/uL (1.8-7.7); Neutrophils % 60.3 %; Nucleated Red Blood Cells % 0.6 %; Platelet Count 131 10^3/cmm (157-399); Red Blood Count 3.91 10^6/uL (3.85-5.65); Red Cell Distribution Width 15.4 % (12.1-15.1); White Blood Count 7.27 10^3/uL (3.29-11.43)
[2023-06-05 04:49] LABS: Alanine Aminotransferase 14 U/L (0-33); Albumin Level 2.4 g/dL (3.5-5.2); Alkaline Phosphatase 67 U/L (35-105); Anion Gap 12.2 (5-19); Aspartate Amino Transferase 15 U/L (0-32); Blood Urea Nitrogen 23 mg/dL (8-23); Calcium 7.2 mg/dL (8.5-10.5); Carbon Dioxide 23 mmol/L (22-29); Chloride 121 mmol/L (98-107); Globulin 3.1 g/dL (1.3-4.6); Glucose 328 mg/dL (65-115); Magnesium 1.4 mg/dL (1.7-2.3); Osmolality Calculated 332 mOsm/kg (285-295); Phosphorus 2.3 mg/dL (2.5-4.5); Potassium 3.2 mmol/L (3.5-5.1); Sodium 153 mmol/L (136-145); Total Bilirubin 0.7 mg/dL (0.15-1.2); Total Protein 5.5 g/dL (6.6-8.7)
[2023-06-05] MEDS: enoxaparin 30 mg/0.3 mL Syringe SUBCUT (08:03)
[2023-06-05] MEDS: insulin lispro 100 unit/1 mL SUBCUT ×3 (08:05→17:48)
[2023-06-05 08:41] LABS: Glucose Point of Care 390 mg/dL (70-110)
[2023-06-05] MEDS: norepinephrine 4 MG/250 ML BAG 30 MG IV ×2 (10:29→18:09)
[2023-06-05] MEDS: magnesium sulfate premix 4 GM/100 ML PREMIX IV (10:29)
[2023-06-05] MEDS: potassium phosphate (mEq K) 40 MEQ in sodium chloride 0.9% (100 ml) 100 ML 27.27 MEQ IV (10:29)
[2023-06-05 11:46] LABS: Glucose Point of Care 275 mg/dL (70-110)
--- NOTE | 2023-06-05 12:33 | P.PN_ITS ---
Subjective 2 Subjective: This morning. No changes yesterday. Family not at bedside at this time. Family still deciding on what to do further. Due to patient's advanced dementia I do not patient able to tolerate an NG tube for feeding. She is not a candidate for PEG tube at this time since she is on 8 of Levophed. Urine growing gram-negative rods. Vitals/I&O/Wt Last Vital Signs Temp 97.9 F 06/05/23 08:00 Pulse 73 06/05/23 10:16 Resp 25 H 06/05/23 08:00 BP 104/49 06/05/23 08:00 Pulse Ox 97 06/05/23 10:16 O2 Del Method Room Air 06/05/23 10:16 O2 Flow Rate 2 06/04/23 04:00 06/04/23 06/05/23 06/05/23 22:59 06:59 14:59 Intake Total 341.1346 / 1486.1346 1174.438 / 2660.5726 174.5 / 174.5 Output Total 450 / 450 850 / 1300 Balance -108.8654 / 1036.1346 324.438 / 1360.5726 174.5 / 174.5 Weight last 48 hrs Weight 54.431 kg Weight 53.977 kg Physical Exam 2 Const: COMMON NORMALS: no acute distress ORIENTATION/CONSCIOUSNESS: Yes awake and Yes confused; not oriented to person, not oriented to place and not oriented to time Eye: COMMON NORMALS: Equal, round and reactive pupils present PUPIL: Yes Equal, round and reactive pupils present Neck/C-Spine: COMMON NORMALS: no JVD Resp: COMMON NORMALS: normal respiratory effort, No retractions, No use of accessory muscles and clear to auscultation bilaterally AUSCULTATION: clear to auscultation bilaterally Cardio: COMMON NORMALS: no JVD, regular rate, regular rhythm, S1 normal heart sound present and S2 normal heart sound present RATE: regular rate RHYTHM: regular rhythm HEART SOUNDS: S1 normal heart sound present and S2 normal heart sound present GI: OTHER: moans when palpated but i this may be her baseline. Extremity: COMMON NORMALS: no pedal edema Neuro: SENSORIUM/ORIENTATION: No oriented to person, No oriented to place and No oriented to time Urinary Catheter Management: Wynne: Cath Placed During This Visit: yes Reason for Continuing Indwelling Catheter: Accurate Measurement of Urinary Output in Critically Ill Patients Urinary Catheter Date of Insertion: 06/03/23 Urinary Catheter Time of Insertion: 00:05 Data 06/05/23 03:45 06/05/23 03:45 Micro: Microbiology 06/03/23 00:35 Urine Culture - Final Urine,Clean Catch Escherichia coli A&P Assessment and plan (1) Acute renal failure: Qualifiers: Acute renal failure type: unspecified Qualified Code(s): N17.9 - Acute kidney failure, unspecified (2) Acute hypernatremia: (3) Acute dehydration: (4) Altered mental status: Qualifiers: Altered mental status type: unspecified Qualified Code(s): R41.82 - Altered mental status, unspecified (5) Hypophosphatemia: (6) Hypokalemia: (7) Septic shock: (8) Severe dementia: (9) Severe protein-calorie malnutrition: (10) Acute hypernatremia: (11) Acute renal insufficiency: (12) LELE (acute kidney injury): (13) Altered mental status: Qualifiers: Altered mental status type: delirium Qualified Code(s): R41.0 - Disorientation, unspecified (14) Dehydration: (15) Fall: (16) Pneumonia: Qualifiers: Laterality: right Lung location: lower lobe of lung Pneumonia type: d ue to unspecified organism Qualified Code(s): J18.9 - Pneumonia, unspecified organism (17) UTI (urinary tract infection): Plan Septic shock secondary to UTI, aspiration pneumonia Acute metabolic encephalopathy secondary to above with a component of underlying known dementia Severe hyponatremia, hypovolemic LELE secondary to dehydration End stage dementia Hypokalemia Hypophosphatemia Comfort care status at residential - Neurochecks, aspiration precautions, seizure precautions - Urine culture positive for gram-negative rods ? Levophed at 5. We are finally starting to come down on dose. ? Continue on amiodarone drip at this time. Patient is NPO. Amio drip turned off this AM. - 10L free water deficit - Check BMP q4H - Continue D5W ate of correction 40 cc an hour will titrate from this, goal would be 85 cc an hour - Monitor serum sodium every 4 hours - Target serum correction is 0.5 mmol/h, 6 to 8 mmol in the next 24 hours - Nephrology consulted - CT abd pelvis done: 1. Negative for focal acute inflammatory process in the abdomen or pelvis. 2. Emphysematous changes. 3. Left lower lobe atelectasis versus infiltrate. 4. Coronary artery atherosclerotic calcifications. 5. Left kidney nonobstructing calyceal stone. 6. Right kidney punctate nonobstructing calyceal stone. 7. Proximal bilateral renal artery calcifications with suspected 70-80% luminal narrowing. 8. Diverticulosis without diverticulitis. 9. Right femur surgical hardware appears in place. 10. Small umbilical hernia containing omentum without bowel. 11. Large hiatal hernia with atlantoaxial malrotation, please correlate clinically. - Replete K and phos today - Will need to have a goals of care discussion. - talked with RN, case management in details DNR/DNI Patient was comfort care at residential. Will discuss with family regarding goals of care. Attestations 2 Medical Necessity Statement*: Patient requires hospitalization, inpatient, greater than 2 minutes, due to hypovolemic hyponatremia, severe acute encephalopathy, LELE Diagnoses Acute renal failure N17.9 Acute renal failure type: unspecified Acute hypernatremia E87.0 Acute dehydration E86.0 Altered mental status R41.82 Altered mental status type: unspecified Hypophosphatemia E83.39 Hypokalemia E87.6 Septic shock A41.9; R65.21 Severe dementia F03.C0 Severe protein-calorie malnutrition E43 Acute renal insufficiency N28.9 LELE (acute kidney injury) N17.9 Dehydration E86.0 Fall W19.XXXA Pneumonia J18.9 Laterality: right Lung location: lower lobe of lung Pneumonia type: due to unspecified organism UTI (urinary tract infection) N39.0
[2023-06-05] MEDS: vancomycin 750 MG in sodium chloride 0.9% 250 ML 250 MG IV (14:02)
--- NOTE | 2023-06-05 14:22 | P.PN_ITS ---
Subjective 2 Subjective: No acute events Medications: Reviewed: Yes Vitals/I&O/Wt Last Vital Signs Temp 97.9 F 06/05/23 08:00 Pulse 66 06/05/23 12:30 Resp 31 H 06/05/23 12:30 BP 101/45 06/05/23 12:30 Pulse Ox 96 06/05/23 12:30 O2 Del Method Room Air 06/05/23 10:16 O2 Flow Rate 2 06/04/23 04:00 06/04/23 06/05/23 06/05/23 22:59 06:59 14:59 Intake Total 341.1346 / 1486.1346 1174.438 / 2660.5726 274.5 / 274.5 Output Total 450 / 450 850 / 1300 Balance -108.8654 / 1036.1346 324.438 / 1360.5726 274.5 / 274.5 Weight last 48 hrs Weight 54.431 kg Weight 53.977 kg Physical Exam 2 Narrative: somnolent Urinary Catheter Management: Wynne: Cath Placed During This Visit: yes Reason for Continuing Indwelling Catheter: Accurate Measurement of Urinary Output in Critically Ill Patients Urinary Catheter Date of Insertion: 06/03/23 Urinary Catheter Time of Insertion: 00:05 Data 06/05/23 03:45 06/05/23 03:45 Micro: Microbiology 06/03/23 00:35 Urine Culture - Final Urine,Clean Catch Escherichia coli A&P Assessment and plan (1) Acute renal failure: Qualifiers: Acute renal failure type: unspecified Qualified Code(s): N17.9 - Acute kidney failure, unspecified (2) Acute hypernatremia: Plan 1. Acute severe hypernatremia: Sodium level severely high more than 184 on presentation. This is due to severe free water deficit due to poor intake for prolonged period. -On D5W infusion -Patient with overall poor prognosis due to advanced dementia and poor intake. -Recommend goals of care discussion, if family wants to continue supportive care, patient should get a G-tube. Otherwise patient seems to be appropriate for comfort care hospice care. 2. Acute kidney injury: Likely secondary to prerenal, , Baseline creatinine is normal at 0.7 about a month ago, cr improving 3. Urinary tract infection 4. Metabolic acidosis, mild monitor Attestations 2 Medical Necessity Statement*: Per medicine Coding Level of Care Code Acute Code for Chg Fwd Diagnoses Acute renal failure N17.9 Acute renal failure type: unspecified Acute hypernatremia E87.0
[2023-06-05] MEDS: dextrose 5 % 500 ML 80 ML IV (14:43)
[2023-06-05 17:48] LABS: Glucose Point of Care 223 mg/dL (70-110)
[2023-06-05 20:39] LABS: Glucose Point of Care 227 mg/dL (70-110)
[2023-06-06] VITALS (52 sets, daily range): BP systolic 77–131; BP diastolic 36–77; PULSE 60–102; RESP 11–28; TEMP 36.1–37.7; O2SAT 91–100
[2023-06-06] MEDS: dextrose 5 % 500 ML 80 ML IV ×2 (00:57→08:24)
[2023-06-06] MEDS: pantoprazole 40 mg SDV IVP (00:58)
[2023-06-06] MEDS: meropenem 500 MG in sodium chloride 0.9% (plus) 50 ML 100 MG IV ×2 (02:23→13:51)
[2023-06-06 05:00] LABS: Basophils % 0.4 %; Eosinophils # 0.2 10^3/uL (0.0-0.8); Eosinophils % 3.7 %; Hematocrit 35.1 % (36-47); Lymphocytes # 1.4 10^3/uL (0.8-4.8); Lymphocytes % 24.9 %; Mean Corpuscular HGB Conc 30.5 g/dL (30-55); Mean Corpuscular Hemoglobin 28.3 pg (27-33); Mean Corpuscular Volume 92.9 fl (85-98); Mean Platelet Volume 13.5 fL (7.4-10.4); Monocytes # 0.4 10^3/uL (0.2-0.9); Monocytes % 6.8 %; Neutrophils % 63.8 %; Nucleated Red Blood Cells % 0 %; Platelet Count 89 10^3/cmm (157-399); Red Blood Count 3.78 10^6/uL (3.85-5.65); White Blood Count 5.47 10^3/uL (3.29-11.43)
[2023-06-06 05:16] LABS: Anion Gap 11.1 (5-19); Blood Urea Nitrogen 13 mg/dL (8-23); Carbon Dioxide 23 mmol/L (22-29); Chloride 110 mmol/L (98-107); Creatinine Clr Calc Pharmacy 49.5589; Osmolality Calculated 315 mOsm/kg (285-295); Potassium 3.1 mmol/L (3.5-5.1); Sodium 141 mmol/L (136-145)
[2023-06-06 05:21] LABS: Glucose 513 mg/dL (65-115)
[2023-06-06 05:28] LABS: Glucose Point of Care 282 mg/dL (70-110)
[2023-06-06] MEDS: norepinephrine 4 MG/250 ML BAG 15 MG IV (05:49)
[2023-06-06 06:33] LABS: Alanine Aminotransferase 11 U/L (0-33); Albumin Level 2.3 g/dL (3.5-5.2); Alkaline Phosphatase 64 U/L (35-105); Anion Gap 11.1 (5-19); Aspartate Amino Transferase 12 U/L (0-32); Blood Urea Nitrogen 13 mg/dL (8-23); Calcium 7.3 mg/dL (8.5-10.5); Carbon Dioxide 23 mmol/L (22-29); Chloride 115 mmol/L (98-107); Globulin 3.1 g/dL (1.3-4.6); Glucose 352 mg/dL (65-115); Osmolality Calculated 316 mOsm/kg (285-295); Potassium 3.1 mmol/L (3.5-5.1); Sodium 146 mmol/L (136-145); Total Bilirubin 0.7 mg/dL (0.15-1.2); Total Protein 5.4 g/dL (6.6-8.7)
[2023-06-06 07:56] LABS: Glucose Point of Care 297 mg/dL (70-110)
[2023-06-06] MEDS: insulin lispro 100 unit/1 mL SUBCUT ×3 (08:24→17:04)
[2023-06-06] MEDS: enoxaparin 30 mg/0.3 mL Syringe SUBCUT (08:24)
--- NOTE | 2023-06-06 10:12 | P.PN_ITS ---
Subjective 2 Subjective: somnolent Medications: Reviewed: Yes Vitals/I&O/Wt Last Vital Signs Temp 96.9 F L 06/06/23 08:00 Pulse 68 06/06/23 08:39 Resp 21 H 06/06/23 08:00 BP 119/53 06/06/23 08:00 Pulse Ox 97 06/06/23 08:39 O2 Del Method Room Air 06/06/23 08:39 O2 Flow Rate 2 06/04/23 04:00 06/05/23 06/06/23 06/06/23 22:59 06:59 14:59 Intake Total 1117.0 / 2497.853 213.000 / 2710.853 500 / 500 Output Total 1175 / 1175 800 / 1975 Balance -58.0 / 1322.853 -587.000 / 735.853 500 / 500 Weight last 48 hrs Weight 51.664 kg Weight 54.431 kg Physical Exam 2 Narrative: somnolent Urinary Catheter Management: Wynne: Cath Placed During This Visit: yes Reason for Continuing Indwelling Catheter: Accurate Measurement of Urinary Output in Critically Ill Patients Urinary Catheter Date of Insertion: 06/03/23 Urinary Catheter Time of Insertion: 00:05 Data 06/06/23 04:30 06/06/23 06:00 Micro: Microbiology 06/03/23 00:35 Urine Culture - Final Urine,Clean Catch Escherichia coli A&P Assessment and plan (1) Acute renal failure: Qualifiers: Acute renal failure type: unspecified Qualified Code(s): N17.9 - Acute kidney failure, unspecified (2) Acute hypernatremia: Plan 1. Acute severe hypernatremia: Sodium level severely high more than 184 on presentation. This is due to severe free water deficit due to poor intake for prolonged period. -On D5W infusion- increase to 100 cc/hr -Patient with overall poor prognosis due to advanced dementia and poor intake. -Recommend goals of care discussion, if family wants to continue supportive care, patient should get a G-tube. Otherwise patient seems to be appropriate for comfort care hospice care. 2. Acute kidney injury: Likely secondary to prerenal, , Baseline creatinine is normal at 0.7 about a month ago, cr improving 3. Urinary tract infection 4. Metabolic acidosis, mild monitor Attestations 2 Medical Necessity Statement*: per [facility] [place] Coding Level of Care Code Acute Code for Chg Fwd Diagnoses Acute renal failure N17.9 Acute renal failure type: unspecified Acute hypernatremia E87.0
[2023-06-06 11:35] LABS: Glucose Point of Care 275 mg/dL (70-110)
[2023-06-06] MEDS: dextrose 5 % 500 ML 100 ML IV ×2 (12:13→20:14)
--- NOTE | 2023-06-06 12:43 | P.PN_ITS ---
Subjective 2 Subjective: seen this am she is awake and said hi to me. she said she was doing good also said she was hungry on 4 of levophed Vitals/I&O/Wt Last Vital Signs Temp 96.9 F L 06/06/23 08:00 Pulse 80 06/06/23 11:30 Resp 12 06/06/23 11:30 BP 103/42 06/06/23 11:30 Pulse Ox 99 06/06/23 11:30 O2 Del Method Room Air 06/06/23 08:39 O2 Flow Rate 2 06/04/23 04:00 06/05/23 06/06/23 06/06/23 22:59 06:59 14:59 Intake Total 1117.0 / 2497.853 213.000 / 2710.853 822.000 / 822.000 Output Total 1175 / 1175 800 / 1975 Balance -58.0 / 1322.853 -587.000 / 735.853 822.000 / 822.000 Weight last 48 hrs Weight 51.664 kg Weight 54.431 kg Physical Exam 2 Narrative: more awake and alert today Const: COMMON NORMALS: no acute distress ORIENTATION/CONSCIOUSNESS: Yes awake and Yes confused; not oriented to person, not oriented to place and not oriented to time Eye: COMMON NORMALS: Equal, round and reactive pupils present PUPIL: Yes Equal, round and reactive pupils present Neck/C-Spine: COMMON NORMALS: no JVD Resp: COMMON NORMALS: normal respiratory effort, No retractions, No use of accessory muscles and clear to auscultation bilaterally AUSCULTATION: clear to auscultation bilaterally Cardio: COMMON NORMALS: no JVD, regular rate, regular rhythm, S1 normal heart sound present and S2 normal heart sound present RATE: regular rate RHYTHM: regular rhythm HEART SOUNDS: S1 normal heart sound present and S2 normal heart sound present GI: OTHER: abd soft Extremity: COMMON NORMALS: no pedal edema Neuro: SENSORIUM/ORIENTATION: No oriented to person, No oriented to place and No oriented to time Urinary Catheter Management: Wynne: Cath Placed During This Visit: yes Reason for Continuing Indwelling Catheter: Accurate Measurement of Urinary Output in Critically Ill Patients Urinary Catheter Date of Insertion: 06/03/23 Urinary Catheter Time of Insertion: 00:05 Data 06/06/23 04:30 06/06/23 06:00 Micro: Microbiology 06/03/23 00:35 Urine Culture - Final Urine,Clean Catch Escherichia coli A&P Assessment and plan (1) Acute renal failure: Qualifiers: Acute renal failure type: unspecified Qualified Code(s): N17.9 - Acute kidney failure, unspecified (2) Acute hypernatremia: (3) Acute dehydration: (4) Altered mental status: Qualifiers: Altered mental status type: unspecified Qualified Code(s): R41.82 - Altered mental status, unspecified (5) Hypophosphatemia: (6) Hypokalemia: (7) Septic shock: (8) Severe dementia: (9) Severe protein-calorie malnutrition: (10) Acute hypernatremia: (11) Acute renal insufficiency: (12) LELE (acute kidney injury): (13) Altered mental status: Qualifiers: Altered mental status type: delirium Qualified Code(s): R41.0 - Disorientation, unspecified (14) Dehydration: (15) Fall: (16) Pneumonia: Qualifiers: Laterality: right Lung location: lower lobe of lung Pneumonia type: d ue to unspecified organism Qualified Code(s): J18.9 - Pneumonia, unspecified organism (17) UTI (urinary tract infection): Plan Septic shock secondary to UTI, aspiration pneumonia - improving Acute metabolic encephalopathy secondary to above with a component of underlying known severe dementia Severe hyponatremia, hypovolemic LELE secondary to dehydration End stage dementia Hypokalemia Hypophosphatemia Comfort care status at [facility] - Neurochecks, aspiration precautions, seizure precautions - Urine culture positive for gram-negative rods ? Levophed at 5. We are finally starting to come down on dose. ? Continue on amiodarone drip at this time. Patient is NPO. Amio drip turned off this AM. - 10L free water deficit - Check BMP q4H - Continue D5W ate of correction 40 cc an hour will titrate from this, goal would be 85 cc an hour - Monitor serum sodium every 4 hours - Target serum correction is 0.5 mmol/h, 6 to 8 mmol in the next 24 hours - Nephrology consulted - CT abd pelvis done: 1. Negative for focal acute inflammatory process in the abdomen or pelvis. 2. Emphysematous changes. 3. Left lower lobe atelectasis versus infiltrate. 4. Coronary artery atherosclerotic calcifications. 5. Left kidney nonobstructing calyceal stone. 6. Right kidney punctate nonobstructing calyceal stone. 7. Proximal bilateral renal artery calcifications with suspected 70-80% luminal narrowing. 8. Diverticulosis without diverticulitis. 9. Right femur surgical hardware appears in place. 10. Small umbilical hernia containing omentum without bowel. 11. Large hiatal hernia with atlantoaxial malrotation, please correlate clinically. - Replete K and phos today - Will need to have a goals of care discussion. - talked with RN, case management in details - check with NH regarding feeding status. May do swallow eval today however pt remains high risk of aspiration. - Family still undecided on goals of care. - Will need to involve ethics committee in AM. DNR/DNI Patient was comfort care at [facility]. Will discuss with family regarding goals of care. Attestations 2 Medical Necessity Statement*: Patient requires hospitalization, inpatient, greater than 2 minutes, due to hypovolemic hyponatremia, severe acute encephalopathy, LELE Diagnoses Acute renal failure N17.9 Acute renal failure type: unspecified Acute hypernatremia E87.0 Acute dehydration E86.0 Altered mental status R41.82 Altered mental status type: unspecified Hypophosphatemia E83.39 Hypokalemia E87.6 Septic shock A41.9; R65.21 Severe dementia F03.C0 Severe protein-calorie malnutrition E43 Acute renal insufficiency N28.9 LELE (acute kidney injury) N17.9 Dehydration E86.0 Fall W19.XXXA Pneumonia J18.9 Laterality: right Lung location: lower lobe of lung Pneumonia type: due to unspecified organism UTI (urinary tract infection) N39.0
[2023-06-06] MEDS: vancomycin 750 MG in sodium chloride 0.9% 250 ML 250 MG IV (13:52)
[2023-06-06] MEDS: morphine 4 mg/mL SDV 1 mL 2 MG IVP (20:28)
[2023-06-06 20:31] LABS: Glucose Point of Care 204 mg/dL (70-110)
[2023-06-06 21:04] LABS: Glucose Point of Care 209 mg/dL (70-110)
[2023-06-07] VITALS (49 sets, daily range): BP systolic 76–134; BP diastolic 29–83; PULSE 68–115; RESP 12–24; TEMP 36.3–37.1; O2SAT 94–100
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
[2023-06-07] MEDS: dextrose 5 % 500 ML 100 ML IV ×4 (02:06→19:48)
[2023-06-07] MEDS: meropenem 500 MG in sodium chloride 0.9% (plus) 50 ML 100 MG IV (03:56)
[2023-06-07] MEDS: pantoprazole 40 mg SDV IVP (03:59)
[2023-06-07 07:45] LABS: Glucose Point of Care 302 mg/dL (70-110)
[2023-06-07] MEDS: insulin lispro 100 unit/1 mL SUBCUT ×3 (07:48→18:29)
[2023-06-07] MEDS: enoxaparin 30 mg/0.3 mL Syringe SUBCUT (08:01)
[2023-06-07] MEDS: lanolin oint 7 gm 1 APPLIC TOPICAL (09:22)
--- NOTE | 2023-06-07 09:23 | PC.NURSE ---
Patient is frequently pulling off cardiac monitoring and pulling at blood pressure cuff. Patient's mouth is dry, nurse attempted to moisten mouth with oral swabs, but patient is uncooperative and does not allow it. Nurse was able to apply lanolin ointment to dry lips.
--- NOTE | 2023-06-07 10:24 | P.PN_ITS ---
Subjective 2 Subjective: Nonverbal. Confused, disoriented. Blood pressure 125/67 at this time. Off Levophed since 2 AM. Labs not available this morning. Had an extended conversation with the nursing staff at [facility]. Patient has been a long-term resident of the dementia unit. She has had poor p.o. intake, difficulty swallowing for at least a month now. She was recently admitted to the hospital for hypernatremia in April 2023. She is back now for similar issues. And is since she is not getting enough p.o. intake or hydration that is leading to the problems with recurrent hypernatremia. At baseline patient is completely dependent for her ADLs at the long term staff. She is unable to self-feed at the long term. Only takes a few bites when offered food. Unable to communicate her needs to staff. It is thought her mental status is related to advanced dementia. Reviewed speech therapy notes from recent admission on April 25, 2023. Patient was only able to speak a few unintelligible phrases. She needed to be reoriented every couple of minutes due to confusion. She was extremely confused. She is only able to say yes or no. At that time she was able to consume several sips of level to modify thick liquids with a straw however coughing episodes were noted with over 50% of the opportunities. Level 4 diet was recommended at the time. This may have changed. She seems too disoriented too attempt a diet Medications: Reviewed: Yes Vitals/I&O/Wt Last Vital Signs Temp 97.7 F 06/07/23 08:00 Pulse 80 06/07/23 09:30 Resp 19 H 06/07/23 09:30 BP 88/39 06/07/23 09:30 Pulse Ox 97 06/07/23 09:30 O2 Del Method Room Air 06/07/23 08:00 O2 Flow Rate 2 06/04/23 04:00 06/06/23 06/07/23 06/07/23 22:59 06:59 14:59 Intake Total 697.75 / 1819.750 552.25 / 2372.000 500 / 500 Output Total 1325 / 1325 1550 / 2875 275 / 275 Balance -627.25 / 494.750 -997.75 / -503.000 225 / 225 Weight last 48 hrs Weight 51.528 kg Weight 51.664 kg Physical Exam 2 Narrative: General: No acute distress, AO x0 HEENT: PERRLA, pupils bilaterally equal and reactive, pallors not present Chest: Normal vesicular breath sounds, no added sounds, equal good air entry bilaterally CVS: S1-S2 regular, no murmurs, no tachycardia, no gallops, no rubs Abdomen: Soft, nontender, no organomegaly, bowel sounds present Neuro: No focal deficits, no facial deformity, AO x0, moves all extremities in bed, follows no commands Urinary Catheter Management: Wynne: Cath Placed During This Visit: yes Reason for Continuing Indwelling Catheter: Accurate Measurement of Urinary Output in Critically Ill Patients Urinary Catheter Date of Insertion: 06/03/23 Urinary Catheter Time of Insertion: 00:05 Data 06/06/23 04:30 06/06/23 06:00 Micro: Microbiology 06/03/23 01:47 Blood Culture - Preliminary Blood 06/03/23 01:37 Blood Culture - Preliminary Blood A&P Assessment and plan (1) Acute renal failure: Qualifiers: Acute renal failure type: unspecified Qualified Code(s): N17.9 - Acute kidney failure, unspecified (2) Acute hypernatremia: (3) Acute dehydration: (4) Altered mental status: Qualifiers: Altered mental status type: unspecified Qualified Code(s): R41.82 - Altered mental status, unspecified (5) Hypophosphatemia: (6) Hypokalemia: (7) Septic shock: (8) Severe dementia: (9) Severe protein-calorie malnutrition: (10) Acute renal insufficiency: (11) LELE (acute kidney injury): (12) Dehydration: (13) Fall: (14) Pneumonia: Qualifiers: Laterality: right Lung location: lower lobe of lung Pneumonia type: d ue to unspecified organism Qualified Code(s): J18.9 - Pneumonia, unspecified organism (15) UTI (urinary tract infection): Plan Septic shock secondary to UTI, aspiration pneumonia - improving Acute metabolic encephalopathy secondary to above with a component of underlying known severe dementia Severe hyponatremia, hypovolemic LELE secondary to dehydration End stage dementia Hypokalemia Hypophosphatemia Comfort care status at long term - Neurochecks, aspiration precautions, seizure precautions - Urine culture positive for gram-negative rods ? Levophed at 5. We are finally starting to come down on dose. ? Continue on amiodarone drip at this time. Patient is NPO. Amio drip turned off this AM. - 10L free water deficit - Check BMP q4H - Continue D5W ate of correction 40 cc an hour will titrate from this, goal would be 85 cc an hour - Monitor serum sodium every 4 hours - Target serum correction is 0.5 mmol/h, 6 to 8 mmol in the next 24 hours - Nephrology consulted - CT abd pelvis done: 1. Negative for focal acute inflammatory process in the abdomen or pelvis. 2. Emphysematous changes. 3. Left lower lobe atelectasis versus infiltrate. 4. Coronary artery atherosclerotic calcifications. 5. Left kidney nonobstructing calyceal stone. 6. Right kidney punctate nonobstructing calyceal stone. 7. Proximal bilateral renal artery calcifications with suspected 70-80% luminal narrowing. 8. Diverticulosis without diverticulitis. 9. Right femur surgical hardware appears in place. 10. Small umbilical hernia containing omentum without bowel. 11. Large hiatal hernia with atlantoaxial malrotation, please correlate clinically. - Replete K and phos today - Will need to have a goals of care discussion. - talked with RN, case management in details - check with NH regarding feeding status. May do swallow eval today however pt remains high risk of aspiration. - Family still undecided on goals of care. - Will need to involve ethics committee in AM. DNR/DNI Patient was comfort care at long term. Will discuss with family regarding goals of care. Plan for today June 07, 2023. Additional information is obtained from talking to long term nursing staff. Please see notes above in subjective. Patient was not officially on comfort care at the nursing facility is my understanding. Family had been offered the option of comfort care but had eventually decided against it and patient came to the hospital with hypernatremia and a UTI. She is being treated for the above issues. Discontinue meropenem and vancomycin today in keeping with culture results. Urine culture shows ceftriaxone susceptible E. coli. Start ceftriaxone 1 g IV daily. Currently patient's afebrile. Noted allergy in chart to cephalexin- nature not charted- will discuss with family. Tolerated meropenem without any issues. She is at her baseline mentation. She is completely dependent on her ADLs. Only says yes or no, unable to have a full conversation. Appears to be back to her baseline today. Called the listed DPOA and patient's chart Ms. Lisa Jules and patient's other daughter Sabrina who is not listed on the DPOA paperwork. I got voicemail for both family members. I have left a message asking them to call us back to discuss goals of care. Swallow eval ordered today. In essence, patient is back with recurrent hypernatremia due to poor p.o. intake and inadequate hydration. She is unlikely to improve mentation gonzalez significantly to be able to tolerate p.o. intake when she has already been admitted twice with the same issues. If we are to break the cycle of recurrent hypernatremia, recommendation would be to place a PEG tube to allow for tube feeding and tube hydration at the facility. I need to discuss with family if this is compatible with patient's previously expressed goals of care and to get consent from DPOA for the procedure. I will wait on an ethics consult until I hear back from patient's family as she may not need this consult eventually. check CMP today, Labs N/a from this am. can likely transfer out of ICU this afternoon if remains off pressors. Cr normalized, noted B/L renal artery stenosis. Attestations 2 Medical Necessity Statement*: Continued admission for hypernatremia, goals of care discussion as noted above. Coding Level of Care Code Acute Code for Chg Fwd Moderate MDM includes number and complexity of problems actively addressed during encounter, amount and/or complexity of data reviewed/ordered and described risk of complication, morbidity or mortality of management as documented Diagnoses Acute renal failure N17.9 Acute renal failure type: unspecified Acute hypernatremia E87.0 Acute dehydration E86.0 Altered mental status R41.82 Altered mental status type: unspecified Hypophosphatemia E83.39 Hypokalemia E87.6 Septic shock A41.9; R65.21 Severe dementia F03.C0 Severe protein-calorie malnutrition E43 Acute renal insufficiency N28.9 LELE (acute kidney injury) N17.9 Dehydration E86.0 Fall W19.XXXA Pneumonia J18.9 Laterality: right Lung location: lower lobe of lung Pneumonia type: due to unspecified organism UTI (urinary tract infection) N39.0
--- NOTE | 2023-06-07 10:50 | P.PN_ITS ---
Subjective 2 Subjective: labs pending .[facility] ethics commmitte meeting Medications: Reviewed: Yes Vitals/I&O/Wt Last Vital Signs Temp 97.7 F 06/07/23 08:00 Pulse 80 06/07/23 09:30 Resp 19 H 06/07/23 09:30 BP 88/39 06/07/23 09:30 Pulse Ox 97 06/07/23 09:30 O2 Del Method Room Air 06/07/23 08:00 O2 Flow Rate 2 06/04/23 04:00 06/06/23 06/07/23 06/07/23 22:59 06:59 14:59 Intake Total 697.75 / 1819.750 552.25 / 2372.000 500 / 500 Output Total 1325 / 1325 1550 / 2875 275 / 275 Balance -627.25 / 494.750 -997.75 / -503.000 225 / 225 Weight last 48 hrs Weight 51.528 kg Weight 51.664 kg Physical Exam 2 Narrative: awake Urinary Catheter Management: Wynne: Cath Placed During This Visit: yes Reason for Continuing Indwelling Catheter: Accurate Measurement of Urinary Output in Critically Ill Patients Urinary Catheter Date of Insertion: 06/03/23 Urinary Catheter Time of Insertion: 00:05 Data 06/06/23 04:30 06/06/23 06:00 Micro: Microbiology 06/03/23 01:47 Blood Culture - Preliminary Blood 06/03/23 01:37 Blood Culture - Preliminary Blood A&P Assessment and plan (1) Acute renal failure: Qualifiers: Acute renal failure type: unspecified Qualified Code(s): N17.9 - Acute kidney failure, unspecified (2) Acute hypernatremia: Plan 1. Acute severe hypernatremia: Sodium level severely high more than 184 on presentation. This is due to severe free water deficit due to poor intake for prolonged period. -On D5W infusion- 100 cc/hr -Patient with overall poor prognosis due to advanced dementia and poor intake. -Recommend goals of care discussion, if family wants to continue supportive care, patient should get a G-tube. Otherwise patient seems to be appropriate for comfort care hospice care. 2. Acute kidney injury: Likely secondary to prerenal, , Baseline creatinine is normal at 0.7 about a month ago, cr improving 3. Urinary tract infection 4. Metabolic acidosis, mild monitor Attestations 2 Medical Necessity Statement*: per [facility] Coding Level of Care Code Acute Code for Chg Fwd Diagnoses Acute renal failure N17.9 Acute renal failure type: unspecified Acute hypernatremia E87.0
[2023-06-07 11:02] LABS: Anion Gap 11.9 (5-19); Blood Urea Nitrogen 7 mg/dL (8-23); Calcium 7.5 mg/dL (8.5-10.5); Carbon Dioxide 23 mmol/L (22-29); Chloride 108 mmol/L (98-107); Glucose 264 mg/dL (65-115); Osmolality Calculated 297 mOsm/kg (285-295); Sodium 140 mmol/L (136-145)
[2023-06-07] MEDS: norepinephrine 4 MG/250 ML BAG 7.5 MG IV (11:04)
[2023-06-07] MEDS: cefTRIAXone 1,000 MG in sodium chloride 0.9% (plus) 50 ML 100 MG IV (11:08)
[2023-06-07 11:16] LABS: Potassium 2.9 mmol/L (3.5-5.1)
--- NOTE | 2023-06-07 11:29 | PC.NURSE ---
NUrse attempted bedside swallow evaluation, but unable to proceed due to patient's mental status, inability follow control, does not appear to have control of her tongue.
[2023-06-07 13:05] LABS: Glucose Point of Care 235 mg/dL (70-110)
[2023-06-07] MEDS: potassium chloride premix 100 ML 25 MEQ IV (13:07)
[2023-06-07] MEDS: potassium chloride premix 100 ML 50 MEQ IV (16:55)
[2023-06-07 17:23] LABS: Glucose Point of Care 190 mg/dL (70-110)
--- NOTE | 2023-06-07 17:27 | P.CONIM_ITS ---
Providers/Reason For Consult 2 Consulting Physician/Specialty*: General surgery Reason for Consult*: Gastric tube placement Attending Physician: Stephanie Durán MD Primary Care Provider: Shikha Campbell MD History of Present Illness History of Present Illness Debbie Jules is a 78 year old female with history of dementia which is very advanced, multiple admissions with hyponatremia due to dehydration which is likely due to free water deficit due to poor oral intake. I have been consulted for evaluation for possible gastric tube placement to allow for enteric feeding and to prevent further episodes of hypernatremia. HPI obtained from chart review as well as discussion with primary team, patient is unable to communicate with me in an organized manner. At the moment of the my evaluation no family members were at the bedside. Review of Systems 2 General: Reports: ROS unobtainable due to mental status Medications/Allergies Home Medications Medication Instructions Recorded Confirmed Last Taken Type bisacodyl 10 mg rectal suppository 10 mg WI Q12H PRN Constipation 11/16/22 06/03/23 Unknown History bisacodyl 5 mg tablet,delayed 10 mg PO DAILY PRN Constipation 11/16/22 06/03/23 Unknown History release docusate sodium 100 mg tablet 200 mg PO DAILY PRN Constipation 11/16/22 06/03/23 Unknown History lorazepam 0.5 mg tablet 0.5 mg PO DAILY anxiety 11/16/22 06/03/23 04/22/23 History lovastatin 10 mg tablet 5 mg PO DAILY 11/16/22 06/03/23 04/22/23 History magnesium hydroxide 400 mg/5 mL 30 ml PO DAILY PRN Constipation 11/16/22 06/03/23 Unknown History oral suspension (Milk of Magnesia) omeprazole 20 mg capsule,delayed 20 mg PO QAM 11/16/22 06/03/23 04/22/23 History release acetaminophen 325 mg tablet 650 mg PO Q4H PRN Pain 04/23/23 06/03/23 Unknown History lactase 3,000 unit tablet (Lactaid) 3,000 unit PO TID 04/23/23 06/03/23 04/22/23 History metformin 500 mg tablet,extended 1,000 mg PO BEDTIME 04/23/23 06/03/23 04/22/23 History release 24 hr nystatin 100,000 unit/gram topical See Rx Instructions .Route .COMPLEX 1206/03/23 04/22/23 History powder (Nystop) sitagliptin phosphate 50 mg tablet 50 mg PO DAILY 04/23/23 06/03/23 04/22/23 History (Januvia) amino acids-protein hydrolysate 15 See Rx Instructions .Route .COMPLEX 06/03/23 06/03/23 Unknown History gram-101 kcal/30 mL oral liquid food supplemt, lactose-reduced See Rx Instructions .Route .COMPLEX 06/03/23 06/03/23 Unknown History insulin aspart U-100 100 unit/mL See Rx Instructions .Route .COMPLEX 06/03/23 06/03/23 Unknown History (3 mL) subcutaneous pen (Novolog FlexPen U-100 Insulin aspart) insulin detemir U-100 100 unit/mL 17 unit SUBCUT BEDTIME 06/03/23 06/03/23 Unknown History (3 mL) subcutaneous pen (Levemir FlexPen) lorazepam 2 mg/mL oral concentrate See Rx Instructions .Route .COMPLEX 06/03/23 06/03/23 Unknown History morphine concentrate 100 mg/5 mL See Rx Instructions .Route .COMPLEX 06/03/23 06/03/23 Unknown History (20 mg/mL) oral solution potassium chloride 20 mEq 20 meq PO DAILY 06/03/23 06/03/23 Unknown History tablet,extended release(part/cryst) sodium di- and 1 tab PO DAILY 06/03/23 06/03/23 Unknown History monophosphate-potassium phos monobasic 250 mg tablet (Phospha Neutral) Allergies Allergy/AdvReac Type Severity Reaction Status Date / Time cephalexin [From Keflex] Allergy Unknown Verified 06/03/23 10:21 Current Medications Generic Name Dose Route Start Last Admin Trade Name Freq PRN Reason Stop Dose Admin Enoxaparin Sodium 30 mg 06/03/23 09:00 06/07/23 08:01 Enoxaparin 30 Mg/0.3 Ml Syringe SUBCUT 30 mg Q24H MILLER Administration norepinephrine 4 mg in 250 mls @ 0 mls/hr 06/03/23 01:30 06/07/23 11:31 Levophed IV 4 mcg/min .Q0M MILLER 15 mls/hr Titration Protocol Per Protocol Amiodarone HCl/Dextrose 360 mg in 200 mls @ 0 mls/hr 06/03/23 16:45 06/05/23 05:57 Nexterone IV Infused .Q0M MILLER Titration Protocol Per Protocol Dextrose 500 mls @ 100 mls/hr 06/05/23 14:45 06/07/23 14:29 D5w IV 100 mls/hr .Q5H MILLER Administration Potassium Chloride 100 mls @ 50 mls/hr 06/07/23 16:00 06/07/23 16:55 K-Hitesh Premix IV 06/07/23 17:59 50 mls/hr ONCE ONE Administration Insulin Human Lispro 0 unit 06/03/23 08:00 06/07/23 13:03 Insulin Lispro 100 Unit/1 Ml SUBCUT 10 unit TIDWM MILLER Administration Protocol Lanolin 1 applic 06/07/23 07:52 06/07/23 09:22 Lanolin Oint 7 Gm TOPICAL 1 applic PRN PRN Administration DRYNESS Pantoprazole Sodium 40 mg 06/03/23 00:24 06/07/23 03:59 Pantoprazole 40 Mg Sdv IVP 40 mg Q24H MILLER Administration PFSH Acute 2 PFSH: Medical History TIA (transient ischemic attack) Depression Anemia Dementia B12 deficiency Diabetes Vitals/I&O/Wt Last Vital Signs Temp 98.2 F 06/07/23 12:30 Pulse 83 06/07/23 14:00 Resp 21 H 06/07/23 13:30 BP 121/55 06/07/23 13:00 Pulse Ox 95 06/07/23 13:30 O2 Del Method Room Air 06/07/23 12:30 O2 Flow Rate 2 06/04/23 04:00 06/07/23 06/07/23 06/07/23 06:59 14:59 22:59 Intake Total 552.25 / 2372.000 1035.042 / 1035.042 146.667 / 1181.709 Output Total 1550 / 2875 450 / 450 Balance -997.75 / -503.000 585.042 / 585.042 146.667 / 731.709 Weight last 48 hrs Weight 113 lb 9.6 oz Weight 113 lb 14.4 oz Physical Exam 2 Narrative: Patient appears frail and debilitated, disoriented GI: OTHER: Abdomen is soft, nontender, nondistended Urinary Catheter Management: Wynne: Cath Placed During This Visit: yes Reason for Continuing Indwelling Catheter: Accurate Measurement of Urinary Output in Critically Ill Patients Urinary Catheter Date of Insertion: 06/03/23 Urinary Catheter Time of Insertion: 00:05 Data 06/06/23 04:30 06/07/23 10:33 Micro: Microbiology 06/03/23 01:47 Blood Culture - Preliminary Blood 06/03/23 01:37 Blood Culture - Preliminary Blood A&P Assessment and plan (1) Severe protein-calorie malnutrition: (2) Acute renal failure: Qualifiers: Acute renal failure type: unspecified Qualified Code(s): N17.9 - Acute kidney failure, unspecified (3) Severe dementia: (4) Altered mental status: Qualifiers: Altered mental status type: unspecified Qualified Code(s): R41.82 - Altered mental status, unspecified Plan This is a 78-year-old female with advanced dementia who has been admitted multiple times with hypernatremia due to poor oral intake. Primary team has discussed with family members who will like to have enteral access in order to prevent further episodes, patient currently is DNR/DNI but has not been transitioned to comfort care. After complete history review, physical examination and review of all the available clinical data the following is my assessment. While patient may Benefit from a gastric tube, at this moment this procedure is contraindicated, this is due to the fact that the patient has a very large hiatal hernia with all the stomach being contain in the chest, which will be a contraindication for placement of either at percutaneous gastrostomy or surgical gastrostomy tube. Other options for enteral feeding such as feeding jejunostomy tube will likely be a poor choice for this patient as a feeding jejunostomy is most likely going to be a very short-term solution. In addition in order to create a feeding jejunostomy patient will need to undergo an laparotomy which will for cure debilitate her condition and worsening her clinical status, at this point I think the benefit of proceeding is outweighed by the risk of the operation and postoperative care. My recommendation is that there should be a family meeting to discuss goals of care and further consideration for comfort care for this patient. Indicates that the family does not want to proceed with comfort care alternative solutions for short-term feeding would be a nasogastric Dobbhoff tube, which will allow for around short-term water replacement. Unfortunately no other long-term solutions are viable in this patient at this time. The only additional option that may be useful for her is a laparoscopic feeding jejunostomy which at the moment is not offfered in our institution. -Patient has absolute contraindications for creation of enteral feeding access -Consider short-term options such as NG tube or Dobbhoff tube -Consider discussion of comfort care versus hospice as patient has a very poor prognosis. Coding Level of Care Code 64736 Diagnoses Severe protein-calorie malnutrition E43 Acute renal failure N17.9 Acute renal failure type: unspecified Severe dementia F03.C0 Altered mental status R41.82 Altered mental status type: unspecified
--- NOTE | 2023-06-07 17:48 | PC.NURSE ---
Shift SUmmary: Patient rested in bed throughout the day. Occaisonally yelling out incomprehensible words. Unable to participate in mental status assessments. Levophed restarted, ranging between 2-4 mcg. total urine output has been 875mL. DIfficulty getting ahold of DPOA daughter Lisa, she has said she wants to proceed with peg tube. Surgeon consulted to discuss further.
[2023-06-07 21:20] LABS: Glucose Point of Care 148 mg/dL (70-110)
[2023-06-07] MEDS: norepinephrine 4 MG/250 ML BAG 22.5 MG IV (23:55)
[2023-06-08] VITALS (48 sets, daily range): BP systolic 75–144; BP diastolic 33–96; PULSE 59–118; RESP 9–27; TEMP 36.4–36.9; O2SAT 91–99
[2023-06-08] MEDS: dextrose 5 % 500 ML 100 ML IV ×4 (01:29→20:25)
[2023-06-08] MEDS: pantoprazole 40 mg SDV IVP (03:16)
[2023-06-08 05:43] LABS: Alanine Aminotransferase 10 U/L (0-33); Albumin Level 2.4 g/dL (3.5-5.2); Alkaline Phosphatase 68 U/L (35-105); Anion Gap 15.4 (5-19); Aspartate Amino Transferase 18 U/L (0-32); Blood Urea Nitrogen 5 mg/dL (8-23); Calcium 7.9 mg/dL (8.5-10.5); Carbon Dioxide 22 mmol/L (22-29); Chloride 108 mmol/L (98-107); Globulin 3.2 g/dL (1.3-4.6); Glucose 314 mg/dL (65-115); Osmolality Calculated 303 mOsm/kg (285-295); Potassium 3.4 mmol/L (3.5-5.1); Sodium 142 mmol/L (136-145); Total Bilirubin 0.6 mg/dL (0.15-1.2); Total Protein 5.6 g/dL (6.6-8.7)
[2023-06-08 07:49] LABS: Glucose Point of Care 323 mg/dL (70-110)
[2023-06-08] MEDS: insulin lispro 100 unit/1 mL SUBCUT ×2 (09:02→11:53)
[2023-06-08] MEDS: enoxaparin 30 mg/0.3 mL Syringe SUBCUT (09:04)
--- NOTE | 2023-06-08 09:06 | PC.NURSE ---
Patient's mouth continues to be very dry Nurse attempted to provide oral care and moisturize mouth with swabs, but patient refuses, attempts to hit nurse and yells out im gonna kill you . Nurse was able to papply lanolin ointment to dry lips.
--- NOTE | 2023-06-08 10:11 | P.PN_ITS ---
Subjective 2 Subjective: events noted Medications: Reviewed: Yes Vitals/I&O/Wt Last Vital Signs Temp 98.1 F 06/08/23 08:00 Pulse 96 06/08/23 09:00 Resp 9 L 06/08/23 09:00 BP 102/52 06/08/23 09:00 Pulse Ox 95 06/08/23 09:00 O2 Del Method Room Air 06/08/23 08:11 O2 Flow Rate 2 06/04/23 04:00 06/07/23 06/08/23 06/08/23 22:59 06:59 14:59 Intake Total 873.917 / 6892.640 1963.500 / 3090.459 Output Total 425 / 875 3400 / 4275 150 / 150 Balance 448.917 / 1033.959 -2218.500 / -1184.541 -150 / -150 Weight last 48 hrs Weight 50.938 kg Weight 51.528 kg Physical Exam 2 Narrative: somnolent Urinary Catheter Management: Wynne: Cath Placed During This Visit: yes Reason for Continuing Indwelling Catheter: Accurate Measurement of Urinary Output in Critically Ill Patients Urinary Catheter Date of Insertion: 06/03/23 Urinary Catheter Time of Insertion: 00:05 Data 06/06/23 04:30 06/08/23 02:50 A&P Assessment and plan (1) Acute renal failure: Qualifiers: Acute renal failure type: unspecified Qualified Code(s): N17.9 - Acute kidney failure, unspecified (2) Acute hypernatremia: Plan 1. Acute severe hypernatremia: Sodium level severely high more than 184 on presentation. This is due to severe free water deficit due to poor intake for prolonged period. -On D5W infusion- 100 cc/hr -Patient with overall poor prognosis due to advanced dementia and poor intake. - Noted general sx eval - cant place G tube due to hiatal hernia , pt appropriate for comfort care /hospice care. awaiting decisions from family 2. Acute kidney injury: Likely secondary to prerenal, , Baseline creatinine is normal at 0.7 about a month ago, cr improved 3. Urinary tract infection 4. Metabolic acidosis, mild monitor Attestations 2 Medical Necessity Statement*: per [facility] [place] Coding Level of Care Code Acute Code for [facility] Diagnoses Acute renal failure N17.9 Acute renal failure type: unspecified Acute hypernatremia E87.0
[2023-06-08 11:25] LABS: Glucose Point of Care 291 mg/dL (70-110)
[2023-06-08] MEDS: piperacillin-tazobactam 3.375 GM in sodium chloride 0.9% (plus) 50 ML IV ×2 (11:52→20:21)
--- NOTE | 2023-06-08 11:56 | P.PN_ITS ---
Subjective 2 Subjective: Sodium 142 today.Patient continues to be confused and disoriented as is her baseline. Hypokalemia. Levophed at 4 mics today. Ceftriaxone needed to be discontinued yesterday after allergy to Keflex was reported to be shortness of breath and dyspnea. Medications: Reviewed: Yes Vitals/I&O/Wt Last Vital Signs Temp 98.1 F 06/08/23 08:00 Pulse 96 06/08/23 09:00 Resp 9 L 06/08/23 09:00 BP 102/52 06/08/23 09:00 Pulse Ox 95 06/08/23 09:00 O2 Del Method Room Air 06/08/23 08:11 O2 Flow Rate 2 06/04/23 04:00 06/07/23 06/08/23 06/08/23 22:59 06:59 14:59 Intake Total 873.917 / 5283.242 4228.500 / 3090.459 Output Total 425 / 875 3400 / 4275 150 / 150 Balance 448.917 / 1033.959 -2218.500 / -1184.541 -150 / -150 Weight last 48 hrs Weight 50.938 kg Weight 51.528 kg Physical Exam 2 Narrative: General: No acute distress, AO x0, chronically ill appearing HEENT: PERRLA, pupils bilaterally equal and reactive, pallors not present Chest: Normal vesicular breath sounds, no added sounds, equal good air entry bilaterally CVS: S1-S2 regular, no murmurs, no tachycardia, no gallops, no rubs Abdomen: Soft, nontender, no organomegaly, bowel sounds present Neuro: No focal deficits, no facial deformity, AO x0, moves all extremities in bed, follows no commands Urinary Catheter Management: Wynne: Cath Placed During This Visit: yes Reason for Continuing Indwelling Catheter: Accurate Measurement of Urinary Output in Critically Ill Patients Urinary Catheter Date of Insertion: 06/03/23 Urinary Catheter Time of Insertion: 00:05 Data 06/06/23 04:30 06/08/23 02:50 A&P Assessment and plan (1) Acute renal failure: Qualifiers: Acute renal failure type: unspecified Qualified Code(s): N17.9 - Acute kidney failure, unspecified (2) Acute hypernatremia: (3) Acute dehydration: (4) Altered mental status: Qualifiers: Altered mental status type: unspecified Qualified Code(s): R41.82 - Altered mental status, unspecified (5) Hypophosphatemia: (6) Hypokalemia: (7) Septic shock: (8) Severe dementia: (9) Severe protein-calorie malnutrition: (10) Acute renal insufficiency: (11) LELE (acute kidney injury): (12) Dehydration: (13) Fall: (14) Pneumonia: Qualifiers: Laterality: right Lung location: lower lobe of lung Pneumonia type: d ue to unspecified organism Qualified Code(s): J18.9 - Pneumonia, unspecified organism (15) UTI (urinary tract infection): Plan Septic shock secondary to UTI, aspiration pneumonia - improving Acute metabolic encephalopathy secondary to above with a component of underlying known severe dementia Severe hyponatremia, hypovolemic LELE secondary to dehydration End stage dementia Hypokalemia Hypophosphatemia Comfort care status at retirement - Neurochecks, aspiration precautions, seizure precautions - Urine culture positive for gram-negative rods ? Levophed at 5. We are finally starting to come down on dose. ? Continue on amiodarone drip at this time. Patient is NPO. Amio drip turned off this AM. - 10L free water deficit - Check BMP q4H - Continue D5W ate of correction 40 cc an hour will titrate from this, goal would be 85 cc an hour - Monitor serum sodium every 4 hours - Target serum correction is 0.5 mmol/h, 6 to 8 mmol in the next 24 hours - Nephrology consulted - CT abd pelvis done: 1. Negative for focal acute inflammatory process in the abdomen or pelvis. 2. Emphysematous changes. 3. Left lower lobe atelectasis versus infiltrate. 4. Coronary artery atherosclerotic calcifications. 5. Left kidney nonobstructing calyceal stone. 6. Right kidney punctate nonobstructing calyceal stone. 7. Proximal bilateral renal artery calcifications with suspected 70-80% luminal narrowing. 8. Diverticulosis without diverticulitis. 9. Right femur surgical hardware appears in place. 10. Small umbilical hernia containing omentum without bowel. 11. Large hiatal hernia with atlantoaxial malrotation, please correlate clinically. - Replete K and phos today - Will need to have a goals of care discussion. - talked with RN, case management in details - check with NH regarding feeding status. May do swallow eval today however pt remains high risk of aspiration. - Family still undecided on goals of care. - Will need to involve ethics committee in AM. DNR/DNI Patient was comfort care at retirement. Will discuss with family regarding goals of care. Plan for today June 07, 2023. Additional information is obtained from talking to retirement nursing staff. Please see notes above in subjective. Patient was not officially on comfort care at the nursing facility is my understanding. Family had been offered the option of comfort care but had eventually decided against it and patient came to the hospital with hypernatremia and a UTI. She is being treated for the above issues. Discontinue meropenem and vancomycin today in keeping with culture results. Urine culture shows ceftriaxone susceptible E. coli. Start ceftriaxone 1 g IV daily. Currently patient's afebrile. Noted allergy in chart to cephalexin- nature not charted- will discuss with family. Tolerated meropenem without any issues. She is at her baseline mentation. She is completely dependent on her ADLs. Only says yes or no, unable to have a full conversation. Appears to be back to her baseline today. Called the listed DPOA and patient's chart Ms. Lisa Jules and patient's other daughter Sabrina who is not listed on the DPOA paperwork. I got voicemail for both family members. I have left a message asking them to call us back to discuss goals of care. Swallow eval ordered today. In essence, patient is back with recurrent hypernatremia due to poor p.o. intake and inadequate hydration. She is unlikely to improve mentation gonzalez significantly to be able to tolerate p.o. intake when she has already been admitted twice with the same issues. If we are to break the cycle of recurrent hypernatremia, recommendation would be to place a PEG tube to allow for tube feeding and tube hydration at the facility. I need to discuss with family if this is compatible with patient's previously expressed goals of care and to get consent from DPOA for the procedure. I will wait on an ethics consult until I hear back from patient's family as she may not need this consult eventually. check CMP today, Labs N/a from this am. can likely transfer out of ICU this afternoon if remains off pressors. Cr normalized, noted B/L renal artery stenosis. Plan for today June 08, 2023. Reviewed surgery's note. Patient is not a candidate for PEG tube placement due to due to huge hiatal hernia. The procedure is contraindicated. Discussed with patient's daughter and HIRENLANI Jules that her short-term option may be insertion of an NG tube to allow for feeding and hydration and referral to gastroenterology as an outpatient for consideration of feeding jejunostomy should the family want current line of treatment to continue. Placement of these feeding tubes are highly unlikely to correct her underlying medical comorbidities. It will certainly not help with her dementia in any way, in fact the NG tube may make her delirium worse. Comfort care may be an alternate consideration. However for now family wishes to proceed with placement of the NG tube. Start piperacillin/tazobactam today as allergy to cephalosporins reported to be shortness of breath. Ceftriaxone was discontinued yesterday for this reason. Currently on Levophed at 4 yandel, suspect that patient has autonomic dysfunction as her blood pressure varies very widely between 70 systolic to 140 systolic. Start midodrine 10 mg 3 times daily and attempt to wean off Levophed. Patient was evaluated by speech therapy yesterday, she was able to consume pudding and moderately thickened liquid combined. She had an episode of coughing with intake of pudding. She takes very small amounts of food. There is aspiration risk evident and nutritional risk additionally as she is not able to consume enough food To maintain caloric intake and hydration. Attestations 2 Medical Necessity Statement*: NG tube, attempt to wean off pressors, change abx Coding Level of Care Code Acute Code for Chg Fwd High MDM includes number and complexity of problems actively addressed during encounter, amount and/or complexity of data reviewed/ordered and described risk of complication, morbidity or mortality of management as documented Diagnoses Acute renal failure N17.9 Acute renal failure type: unspecified Acute hypernatremia E87.0 Acute dehydration E86.0 Altered mental status R41.82 Altered mental status type: unspecified Hypophosphatemia E83.39 Hypokalemia E87.6 Septic shock A41.9; R65.21 Severe dementia F03.C0 Severe protein-calorie malnutrition E43 Acute renal insufficiency N28.9 LELE (acute kidney injury) N17.9 Dehydration E86.0 Fall W19.XXXA Pneumonia J18.9 Laterality: right Lung location: lower lobe of lung Pneumonia type: due to unspecified organism UTI (urinary tract infection) N39.0
[2023-06-08] MEDS: lidocaine 1% 5 ML in potassium chloride premix 100 ML 26.25 ML IV (12:53)
[2023-06-08] MEDS: norepinephrine 4 MG/250 ML BAG 22.5 MG IV (12:59)
--- NOTE | 2023-06-08 13:30 | PC.NUTR ---
Once enteral access is obtained via NG, initiate EN following RD recs below: Jevity 1.2 starting at 15 ml/hr and advance 10 ml/hr q8 until goal of 45 ml/hr x24hrs with 150 ml FWF q[address] See [address] recent RD note for details.
--- NOTE | 2023-06-08 14:30 | XRR_ITS ---
PROCEDURE INFORMATION: Exam: XR Chest Exam date and time: 06/08/2023 2:46 PM Age: 78 years old Clinical indication: Device placement; Ng tube; Additional info: Ng tube placement PT has huge hiatal hernia TECHNIQUE: Imaging protocol: Radiologic exam of the chest. Views: 1 view. COMPARISON: CR XR chest 1V portable [id number] 06/04/2023 10:48 AM FINDINGS: Tubes, catheters and devices: Nasogastric tube distal end is curved on itself within the large diaphragmatic hernia which is predominantly to the right of the midline. Lungs: Unremarkable. No consolidation. Pleural spaces: Unremarkable. No pleural effusion. No pneumothorax. Heart/Mediastinum: Unremarkable. No cardiomegaly. Bones/joints: Unremarkable. XR/XR chest 1V portable [id number] IMPRESSION: 1. Nasogastric tube distal end is curved on itself within the large diaphragmatic hernia which is predominantly to the right of the midline. 2. No acute cardiopulmonary abnormality.
[2023-06-08] MEDS: midodrine 5 mg TABLET 10 MG PO ×2 (15:06→20:26)
[2023-06-08 16:58] LABS: Glucose Point of Care 109 mg/dL (70-110)
--- NOTE | 2023-06-08 18:33 | PC.NURSE ---
Nurse attempted to place NG tube, 3 attempts by different nurses were needed until placement was acheived. Xray shows NG tube is located in the stomach. However, after reviewing the xray, the physician believes tube feeds may cause the hiatal hernia to increase in size and requested removal of the ng tube. Physician will consider weighted dobhoff tube tommorow.
[2023-06-08 18:34] LABS: Glucose Point of Care 115 mg/dL (70-110)
[2023-06-09] VITALS (39 sets, daily range): BP systolic 64–140; BP diastolic 41–82; PULSE 56–73; RESP 10–23; TEMP 36.4–36.6; O2SAT 80–99
[2023-06-09] MEDS: dextrose 5 % 500 ML 100 ML IV ×2 (01:39→08:30)
[2023-06-09] MEDS: pantoprazole 40 mg SDV IVP (03:07)
[2023-06-09] MEDS: piperacillin-tazobactam 3.375 GM in sodium chloride 0.9% (plus) 50 ML IV ×3 (04:17→21:10)
[2023-06-09 05:07] LABS: Basophils % 0.7 %; Eosinophils # 0.3 10^3/uL (0.0-0.8); Eosinophils % 6.1 %; Hematocrit 33.3 % (36-47); Lymphocytes # 1.5 10^3/uL (0.8-4.8); Lymphocytes % 35.2 %; Mean Corpuscular HGB Conc 31.5 g/dL (30-55); Mean Corpuscular Hemoglobin 28.7 pg (27-33); Mean Platelet Volume 12.5 fL (7.4-10.4); Monocytes # 0.5 10^3/uL (0.2-0.9); Neutrophils # 1.98 10^3/uL (1.8-7.7); Neutrophils % 46.5 %; Nucleated Red Blood Cells % 0 %; Platelet Count 139 10^3/cmm (157-399); Red Blood Count 3.66 10^6/uL (3.85-5.65); Red Cell Distribution Width 15.2 % (12.1-15.1); White Blood Count 4.26 10^3/uL (3.29-11.43)
[2023-06-09 05:38] LABS: Alanine Aminotransferase 9 U/L (0-33); Albumin Level 2.3 g/dL (3.5-5.2); Alkaline Phosphatase 62 U/L (35-105); Anion Gap 13.3 (5-19); Aspartate Amino Transferase 18 U/L (0-32); Blood Urea Nitrogen 3 mg/dL (8-23); Calcium 7.3 mg/dL (8.5-10.5); Carbon Dioxide 22 mmol/L (22-29); Chloride 108 mmol/L (98-107); Globulin 3.1 g/dL (1.3-4.6); Glucose 204 mg/dL (65-115); Osmolality Calculated 292 mOsm/kg (285-295); Potassium 3.3 mmol/L (3.5-5.1); Sodium 140 mmol/L (136-145); Total Bilirubin 0.5 mg/dL (0.15-1.2); Total Protein 5.4 g/dL (6.6-8.7)
[2023-06-09 06:37] LABS: Glucose Point of Care 206 mg/dL (70-110)
[2023-06-09 07:53] LABS: Glucose Point of Care 239 mg/dL (70-110)
[2023-06-09] MEDS: insulin lispro 100 unit/1 mL SUBCUT ×2 (08:46→11:48)
[2023-06-09] MEDS: enoxaparin 30 mg/0.3 mL Syringe SUBCUT (08:47)
[2023-06-09] MEDS: midodrine 5 mg TABLET 10 MG PO ×2 (08:48→14:21)
--- NOTE | 2023-06-09 08:54 | P.PN_ITS ---
Subjective 2 Subjective: no new events Medications: Reviewed: Yes Vitals/I&O/Wt Last Vital Signs Temp 98.3 F 06/08/23 17:30 Pulse 62 06/09/23 06:00 Resp 17 06/09/23 05:00 BP 110/51 06/09/23 05:00 Pulse Ox 99 06/08/23 18:00 O2 Del Method Room Air 06/08/23 22:00 O2 Flow Rate 2 06/04/23 04:00 06/08/23 06/09/23 06/09/23 22:59 06:59 14:59 Intake Total 660.125 / 1316.750 550 / 1866.750 Output Total 200 / 1100 850 / 1950 Balance 460.125 / 216.750 -300 / -83.250 Weight last 48 hrs Weight 50.621 kg Weight 50.938 kg Physical Exam 2 Narrative: somnolent Urinary Catheter Management: Wynne: Cath Placed During This Visit: yes Reason for Continuing Indwelling Catheter: Accurate Measurement of Urinary Output in Critically Ill Patients Urinary Catheter Date of Insertion: 06/03/23 Urinary Catheter Time of Insertion: 00:05 Data 06/09/23 04:34 06/09/23 04:34 A&P Assessment and plan (1) Acute renal failure: Qualifiers: Acute renal failure type: unspecified Qualified Code(s): N17.9 - Acute kidney failure, unspecified (2) Acute hypernatremia: Plan 1. Acute severe hypernatremia: Sodium level severely high more than 184 on presentation. This is due to severe free water deficit due to poor intake for prolonged period. -On D5W infusion- decrease to 60cc/hr -Patient with overall poor prognosis due to advanced dementia and poor intake. - Noted general sx eval - cant place G tube due to hiatal hernia , pt appropriate for comfort care /hospice care. awaiting decisions from family 2. Acute kidney injury: Likely secondary to prerenal, , Baseline creatinine is normal at 0.7 about a month ago, cr improved 3. Urinary tract infection 4. Metabolic acidosis, mild monitor Attestations 2 Medical Necessity Statement*: per medicine Coding Level of Care Code Acute Code for Chg Fwd Diagnoses Acute renal failure N17.9 Acute renal failure type: unspecified Acute hypernatremia E87.0
[2023-06-09 11:36] LABS: Glucose Point of Care 218 mg/dL (70-110)
--- NOTE | 2023-06-09 13:52 | P.PN_ITS ---
Subjective 2 Subjective: Titrated off Levophed this morning. Currently on midodrine, however did not consistently take this morning's pills. She forgets to swallow as part of her dementia. NG tube was placed yesterday, however the location was ended within the large hiatal hernia uncued curled upon itself in spite of trying multiple times. It is not safe to feed her through this and therefore tube feeding has not been initiated. Medications: Reviewed: Yes Vitals/I&O/Wt Last Vital Signs Temp 98.3 F 06/08/23 17:30 Pulse 66 06/09/23 09:00 Resp 23 H 06/09/23 09:00 BP 106/47 06/09/23 09:00 Pulse Ox 83 L 06/09/23 09:00 O2 Del Method Room Air 06/08/23 22:00 O2 Flow Rate 2 06/04/23 04:00 06/08/23 06/09/23 06/09/23 22:59 06:59 14:59 Intake Total 660.125 / 1316.750 550 / 1866.750 50 / 50 Output Total 200 / 1100 850 / 1950 Balance 460.125 / 216.750 -300 / -83.250 50 / 50 Weight last 48 hrs Weight 50.621 kg Weight 50.938 kg Physical Exam 2 Narrative: General: No acute distress, AO x0, chronically ill appearing HEENT: PERRLA, pupils bilaterally equal and reactive, pallors not present Chest: Normal vesicular breath sounds, no added sounds, equal good air entry bilaterally CVS: S1-S2 regular, no murmurs, no tachycardia, no gallops, no rubs Abdomen: Soft, nontender, no organomegaly, bowel sounds present Neuro: No focal deficits, no facial deformity, AO x0, moves all extremities in bed, follows no commands Urinary Catheter Management: [place]: Cath Placed During This Visit: yes Reason for Continuing Indwelling Catheter: Accurate Measurement of Urinary Output in Critically Ill Patients Urinary Catheter Date of Insertion: 06/03/23 Urinary Catheter Time of Insertion: 00:05 Data 06/09/23 04:34 06/09/23 04:34 A&P Assessment and plan (1) Acute renal failure: Qualifiers: Acute renal failure type: unspecified Qualified Code(s): N17.9 - Acute kidney failure, unspecified (2) Acute hypernatremia: (3) Acute dehydration: (4) Altered mental status: Qualifiers: Altered mental status type: unspecified Qualified Code(s): R41.82 - Altered mental status, unspecified (5) Hypophosphatemia: (6) Hypokalemia: (7) Septic shock: (8) Severe dementia: (9) Severe protein-calorie malnutrition: (10) Acute renal insufficiency: (11) LELE (acute kidney injury): (12) Dehydration: (13) Fall: (14) Pneumonia: Qualifiers: Laterality: right Lung location: lower lobe of lung Pneumonia type: d ue to unspecified organism Qualified Code(s): J18.9 - Pneumonia, unspecified organism (15) UTI (urinary tract infection): Plan Septic shock secondary to UTI, aspiration pneumonia - improving Acute metabolic encephalopathy secondary to above with a component of underlying known severe dementia Severe hypernatremia, hypovolemic LELE secondary to dehydration End stage dementia Hypokalemia Hypophosphatemia Comfort care status at senior living - Neurochecks, aspiration precautions, seizure precautions - Urine culture positive for gram-negative rods ? Levophed at 5. We are finally starting to come down on dose. ? Continue on amiodarone drip at this time. Patient is NPO. Amio drip turned off this AM. - 10L free water deficit - Check BMP q4H - Continue D5W ate of correction 40 cc an hour will titrate from this, goal would be 85 cc an hour - Monitor serum sodium every 4 hours - Target serum correction is 0.5 mmol/h, 6 to 8 mmol in the next 24 hours - Nephrology consulted - CT abd pelvis done: 1. Negative for focal acute inflammatory process in the abdomen or pelvis. 2. Emphysematous changes. 3. Left lower lobe atelectasis versus infiltrate. 4. Coronary artery atherosclerotic calcifications. 5. Left kidney nonobstructing calyceal stone. 6. Right kidney punctate nonobstructing calyceal stone. 7. Proximal bilateral renal artery calcifications with suspected 70-80% luminal narrowing. 8. Diverticulosis without diverticulitis. 9. Right femur surgical hardware appears in place. 10. Small umbilical hernia containing omentum without bowel. 11. Large hiatal hernia with atlantoaxial malrotation, please correlate clinically. - Replete K and phos today - Will need to have a goals of care discussion. - talked with RN, case management in details - check with NH regarding feeding status. May do swallow eval today however pt remains high risk of aspiration. - Family still undecided on goals of care. - Will need to involve ethics committee in AM. DNR/DNI Patient was comfort care at senior living. Will discuss with family regarding goals of care. Plan for today June 07, 2023. Additional information is obtained from talking to senior living nursing staff. Please see notes above in subjective. Patient was not officially on comfort care at the nursing facility is my understanding. Family had been offered the option of comfort care but had eventually decided against it and patient came to the hospital with hypernatremia and a UTI. She is being treated for the above issues. Discontinue meropenem and vancomycin today in keeping with culture results. Urine culture shows ceftriaxone susceptible E. coli. Start ceftriaxone 1 g IV daily. Currently patient's afebrile. Noted allergy in chart to cephalexin- nature not charted- will discuss with family. Tolerated meropenem without any issues. She is at her baseline mentation. She is completely dependent on her ADLs. Only says yes or no, unable to have a full conversation. Appears to be back to her baseline today. Called the listed DPOA and patient's chart Ms. Lisa Jules and patient's other daughter Sabrina who is not listed on the DPOA paperwork. I got voicemail for both family members. I have left a message asking them to call us back to discuss goals of care. Swallow eval ordered today. In essence, patient is back with recurrent hypernatremia due to poor p.o. intake and inadequate hydration. She is unlikely to improve mentation gonzalez significantly to be able to tolerate p.o. intake when she has already been admitted twice with the same issues. If we are to break the cycle of recurrent hypernatremia, recommendation would be to place a PEG tube to allow for tube feeding and tube hydration at the facility. I need to discuss with family if this is compatible with patient's previously expressed goals of care and to get consent from DPOA for the procedure. I will wait on an ethics consult until I hear back from patient's family as she may not need this consult eventually. check CMP today, Labs N/a from this am. can likely transfer out of ICU this afternoon if remains off pressors. Cr normalized, noted B/L renal artery stenosis. Plan for today June 08, 2023. Reviewed surgery's note. Patient is not a candidate for PEG tube placement due to due to huge hiatal hernia. The procedure is contraindicated. Discussed with patient's daughter and DPOA Lisa Jules that her short-term option may be insertion of an NG tube to allow for feeding and hydration and referral to gastroenterology as an outpatient for consideration of feeding jejunostomy should the family want current line of treatment to continue. Placement of these feeding tubes are highly unlikely to correct her underlying medical comorbidities. It will certainly not help with her dementia in any way, in fact the NG tube may make her delirium worse. Comfort care may be an alternate consideration. However for now family wishes to proceed with placement of the NG tube. Start piperacillin/tazobactam today as allergy to cephalosporins reported to be shortness of breath. Ceftriaxone was discontinued yesterday for this reason. Currently on Levophed at 4 yandel, suspect that patient has autonomic dysfunction as her blood pressure varies very widely between 70 systolic to 140 systolic. Start midodrine 10 mg 3 times daily and attempt to wean off Levophed. Patient was evaluated by speech therapy yesterday, she was able to consume pudding and moderately thickened liquid combined. She had an episode of coughing with intake of pudding. She takes very small amounts of food. There is aspiration risk evident and nutritional risk additionally as she is not able to consume enough food To maintain caloric intake and hydration. Plan for today June 09, 2023. PEG is contraindicated. NG tube was placed yesterday, however location was noted to be within the large hiatal hernia. NG tube coiling upon itself in spite of multiple attempts. It is not safe to feed the patient in this scenario, therefore it was discontinued. Discussed goals of care with patient's daughter Lisa today. She refuses hospice care or comfort care. Since PEG tube and NG tube feeding is not currently an option, potentially we could try placement of a Dobbhoff tube however patient would not be able to return to the senior living with NG tube because of her advanced dementia and high likelihood that she will pull out this tube. Keeping her restrained to tolerate an NG tube is not a good long-term solution. Another potential long- term feeding option may be placement of a PEJ tube which cannot be performed at our center. We will provide a referral to outpatient GI in [place] should patient's family continue to want this option. For now we are resuming the dysphagia level 4 diet with moderately thick liquids, understanding the fact that she will likely not meet her nutritional and hydration needs this way. She will likely have recurrence of hypernatremia. Hospice care seems to be most appropriate given her advanced dementia however daughter not willing to consider this at this time. Currently hypernatremia resolved, UTI is treated, levophed titrated off today. She is ready for discharge to SNF tomorrow if able to stay off pressors today. Attestations 2 Medical Necessity Statement*: monitor off pressors, resume diet, anticipate discharge next 24 hrs Coding Level of Care Code Acute Code for Chg Fwd Diagnoses Acute renal failure N17.9 Acute renal failure type: unspecified Acute hypernatremia E87.0 Acute dehydration E86.0 Altered mental status R41.82 Altered mental status type: unspecified Hypophosphatemia E83.39 Hypokalemia E87.6 Septic shock A41.9; R65.21 Severe dementia F03.C0 Severe protein-calorie malnutrition E43 Acute renal insufficiency N28.9 LELE (acute kidney injury) N17.9 Dehydration E86.0 Fall W19.XXXA Pneumonia J18.9 Laterality: right Lung location: lower lobe of lung Pneumonia type: due to unspecified organism UTI (urinary tract infection) N39.0
[2023-06-09 14:10] LABS: Methicillin-Resist S.aureu PCR DETECTED (NOT DETECTED)
[2023-06-09 16:52] LABS: Glucose Point of Care 71 mg/dL (70-110)
[2023-06-09] MEDS: dextrose 5 % 500 ML 60 ML IV (18:38)
--- NOTE | 2023-06-09 19:56 | PC.NURSE ---
Patient reconnected to heart monitor. Patient removed all leads within minutes and removed her gown. Put patient's gown back on and covered her with a light blanket.
[2023-06-09 20:54] LABS: Glucose Point of Care 86 mg/dL (70-110)
[2023-06-09] MEDS: LORazepam 2 mg/mL INJ 10 mL MDV 1 MG IVP (22:52)
[2023-06-10] VITALS: BP 91/73
--- NOTE | 2023-06-10 | PC.NURSE ---
Patient removes gown and slaps at my arm when I try to help cover her. Unable to perform oral care as patient pushes my hand away. Patient said gonna hit you .
[2023-06-10] MEDS: dextrose 5 % 500 ML 60 ML IV (02:44)
[2023-06-10] MEDS: pantoprazole 40 mg SDV IVP (04:42)
[2023-06-10] MEDS: piperacillin-tazobactam 3.375 GM in sodium chloride 0.9% (plus) 50 ML IV (04:42)
[2023-06-10 07:39] LABS: Glucose Point of Care 172 mg/dL (70-110)
[2023-06-10 08:11] VITALS: BP 118/76; RESP 15; O2SAT 97
[2023-06-10] MEDS: midodrine 5 mg TABLET 10 MG PO ×2 (08:58→15:40)
[2023-06-10] MEDS: enoxaparin 30 mg/0.3 mL Syringe SUBCUT (08:58)
[2023-06-10 10:58] LABS: SARS Covid-2 Antigen negative (Negative)
[2023-06-10 12:00] LABS: Glucose Point of Care 235 mg/dL (70-110)
--- NOTE | 2023-06-10 12:39 | PC.NURSE ---
Medication withheld Patient is not eating and has insulin due of 10 units per sliding scale. Physician contacted and RBVO to hold sliding scale. Insulin for lunch non-administered.
[2023-06-10 12:43] VITALS: BP 118/76; RESP 16; O2SAT 98
--- NOTE | 2023-06-10 13:33 | P.DS_ITS ---
Discharge Providers Date of Admission: 06/02/23 23:20 Date of Discharge: June 10, 2023 Attending Provider at Admission: Marlon Varner MD Attending Provider at Discharge: Stephanie Durán MD Primary Care Provider: Shikha Campbell MD Diagnoses at Discharge Discharge Diagnosis (1) Acute renal failure: Status: Acute Qualifiers: Acute renal failure type: unspecified Qualified Code(s): N17.9 - Acute kidney failure, unspecified (2) Acute hypernatremia: Status: Acute (3) Acute dehydration: Status: Acute (4) Altered mental status: Status: Acute Qualifiers: Altered mental status type: unspecified Qualified Code(s): R41.82 - Altered mental status, unspecified (5) Hypophosphatemia: Status: Acute (6) Hypokalemia: Status: Acute (7) Septic shock: Status: Acute (8) Severe dementia: Status: Acute (9) Severe protein-calorie malnutrition: Status: Acute (10) Acute renal insufficiency: Status: Resolved (11) LELE (acute kidney injury): Status: Resolved (12) Dehydration: Status: Resolved (13) Fall: Status: Inactive (14) Pneumonia: Status: Resolved Qualifiers: Laterality: right Lung location: lower lobe of lung Pneumonia type: due to unspecified organism Qualified Code(s): J18.9 - Pneumonia, unspecified organism (15) UTI (urinary tract infection): Status: Resolved Reason for Visit Reason for Visit: end of life Hospital Course Hospital Course Debbie Jules is a 78 year old female with a past medical history of advanced dementia which leads her to dependent for all ADLs on AL staff, mostly non verbal, able to say few words out of context at baseline, who presented to the hospital with worsened mentation over baseline. Her other comorbidities include h/o type 2 diabetes mellitus and CKD and has had recurrent admission for hypernatremia related to poor po intake due to advanced dementia. She was admitted on 06/02 when she was found to have hypernatremia with NA > 185 on admission, and a UTI. Nephrology was consulted and followed along. Hypernatremia was Hypovolemic hypernatremia with Free water deficit > 10 L. This was slowly corrected with D5 infusion. AT time of discharge NA has corrected to 140 by 06/09/23. For her UTI she received treatment with meropenem---> zosyn between 06/03-06/10. This also provided coverage for possibility of aspiration pneumonia. Urine cx showed E. coli s/t to the abx used. She returned to her baseline mentation, which was confirmed by talking to NH staff. patient cries for most part of the day, lays in bed, answers yes or no but out of context, can tolerate a dysphagia 4 diet but often forgets to swallow the food bolus. SHe has to be fed as she is incapable of self feeding. In essence, patient had recurrent hypernatremia due to poor p.o. intake and inadequate hydration. She is unlikely to improve mentation gonzalez significantly to be able to consume significant p.o. intake due to dementia. To prevent further issues with recurrent hypernatremia, discussed with daughter that we could consider alternate enteral feeding methids such as PEJ as outpatient if it remains compatible with her goals of care. PEG tube is contraindicated due to large hiatal hernia per surgery assessment. NG tube feeding is not practical as patient pulls it out and a large bore NG coiled up in the hernia itself, unsafe to feed through this. Outpatient referral to GI in [place] provided for PEJ if so desired. We are unable to place PEJ at our facility. Alternately also discussed with daughter Lisa (DPOA ) that given patient's advanced dementia it would be appropriate to consider transition to hospice/comfort care management as has also been recommended by multiple other providers who are involved in her care. Her daughter declined transition at this point in time and wants to consider alternate feeding modalities as an outpatient. Patient also had LELE initially upon presentation, creatinine improved with hydration. Bilateral renal artery stenosis was noted on ultrasound. Patient had soft blood pressure during the course of this admission, she has a wide variation in her systolic blood pressure between 70-1 30 systolic, may have some degree of autonomic dysfunction. She was started on midodrine 10 mg 3 times daily with improvement in her blood pressure. This has been continued at discharge. Physical Exam Narrative: General: No acute distress, AO x0, chronically ill appearing HEENT: PERRLA, pupils bilaterally equal and reactive, pallors not present Chest: Normal vesicular breath sounds, no added sounds, equal good air entry bilaterally CVS: S1-S2 regular, no murmurs, no tachycardia, no gallops, no rubs Abdomen: Soft, nontender, no organomegaly, bowel sounds present Neuro: No focal deficits, no facial deformity, AO x0, moves all extremities in bed, follows no commands Urinary Catheter Management: Wynne: Cath Placed During This Visit: yes, but has since been removed by the nurse Reason for Continuing Indwelling Catheter: Decision to DC Catheter Urinary Catheter Date of Insertion: 06/03/23 Urinary Catheter Time of Insertion: 00:05 Date Urinary Catheter Removed: 06/10/23 Time Urinary Catheter Discontinued: 11:46 Discharge Data Studies Completed and Pending Completed Studies During Hospitalization Category Date Time Status CT abdomen pelvis wo con [id number] Stat Cat Scan 06/02/23 22:43 Completed CXRP [XR chest 1V portable [id number]] Routine Exams 06/04/23 10:05 Completed XR chest 1V portable [id number] Routine Exams 06/08/23 14:30 Completed XR chest 1V portable [id number] Stat Exams 06/02/23 19:33 Completed Pending at discharge Category Date Time Status Blood Cultures ([facility]) Routine Lab 06/03/23 01:37 Results Blood Cultures ([facility]) Routine Lab 06/03/23 01:47 Results Radiology Impressions Abdomen/Pelvis CT 06/02/23 22:43 IMPRESSION: 1. Negative for focal acute inflammatory process in the abdomen or pelvis. 2. Emphysematous changes. 3. Left lower lobe atelectasis versus infiltrate. 4. Coronary artery atherosclerotic calcifications. 5. Left kidney nonobstructing calyceal stone. 6. Right kidney punctate nonobstructing calyceal stone. 7. Proximal bilateral renal artery calcifications with suspected 70-80% luminal narrowing. 8. Diverticulosis without diverticulitis. 9. Right femur surgical hardware appears in place. 10. Small umbilical hernia containing omentum without bowel. 11. Large hiatal hernia with atlantoaxial malrotation, please correlate clinically. Chest X-Ray 06/08/23 14:30 IMPRESSION: 1. Nasogastric tube distal end is curved on itself within the large diaphragmatic hernia which is predominantly to the right of the midline. 2. No acute cardiopulmonary abnormality. Laboratory Results WBC 4.26 10^3/uL (3.29-11.43) 06/09/23 04:34 RBC 3.66 10^6/uL (3.85-5.65) L 06/09/23 04:34 Hgb 10.50 g/dL (11.27-16.99) L 06/09/23 04:34 Hct 33.3 % (36-47) L 06/09/23 04:34 MCV 91.0 fl (85-98) 06/09/23 04:34 MCH 28.7 pg (27-33) 06/09/23 04:34 MCHC 31.5 g/dL (30-55) 06/09/23 04:34 RDW 15.2 % (12.1-15.1) H 06/09/23 04:34 Plt Count 139 10^3/cmm (157-399) L 06/09/23 04:34 MPV 12.5 fL (7.4-10.4) H 06/09/23 04:34 Neut % (Auto) 46.5 % 06/09/23 04:34 Lymph % (Auto) 35.2 % 06/09/23 04:34 [place] % (Auto) 11.0 % 06/09/23 04:34 Eos % (Auto) 6.1 % 06/09/23 04:34 Baso % (Auto) 0.7 % 06/09/23 04:34 Neut # (Auto) 1.98 10^3/uL (1.8-7.7) 06/09/23 04:34 Lymph # (Auto) 1.5 10^3/uL (0.8-4.8) 06/09/23 04:34 [place] # (Auto) 0.5 10^3/uL (0.2-0.9) 06/09/23 04:34 Eos # (Auto) 0.3 10^3/uL (0.0-0.8) 06/09/23 04:34 Baso # (Auto) 0.0 10^3/uL (0.0-0.1) 06/09/23 04:34 Nucleated RBC % (auto) 0 % 06/09/23 04:34 Nucleated RBCs # 0.0 /100WBC 06/09/23 04:34 Sodium 140 mmol/L (136-145) 06/09/23 04:34 Potassium 3.3 mmol/L (3.5-5.1) L 06/09/23 04:34 Chloride 108 mmol/L (98-107) H 06/09/23 04:34 Carbon Dioxide 22 mmol/L (22-29) 06/09/23 04:34 Anion Gap 13.3 (5-19) 06/09/23 04:34 BUN 3 mg/dL (8-23) L 06/09/23 04:34 Creatinine 0.7 mg/dL (0.5-0.9) 06/09/23 04:34 GFR Calculation Not Reportable 06/09/23 04:34 Glucose 204 mg/dL (65-115) H 06/09/23 04:34 POC Glucose 235 mg/dL (70-110) H 06/10/23 11:56 Estimat Average Glucose 226 06/02/23 20:12 Hemoglobin A1c 9.5 % (4.0-6.0) H 06/02/23 20:12 Calculated Osmolality 292 mOsm/kg (285-295) 06/09/23 04:34 Lactic Acid 2.1 mmol/L (0.5-2.2) 06/03/23 01:47 Lactic Acid (Sepsis) 2.7 mmol/L (0.5-2.2) H 06/03/23 04:49 Calcium 7.3 mg/dL (8.5-10.5) L 06/09/23 04:34 Phosphorus 2.3 mg/dL (2.5-4.5) L 06/05/23 03:45 Magnesium 1.4 mg/dL (1.7-2.3) L 06/05/23 03:45 Total Bilirubin 0.5 mg/dL (0.15-1.2) 06/09/23 04:34 AST 18 U/L (0-32) 06/09/23 04:34 ALT 9 U/L (0-33) 06/09/23 04:34 Alkaline Phosphatase 62 U/L (35-105) 06/09/23 04:34 Troponin T Baseline 49 ng/L (0-10) H 06/02/23 20:12 Troponin T 120 Minute 47.89 ng/L (0-10) H 06/02/23 22:05 Delta Troponin T -1.11 ABS# (0-10) L 06/02/23 22:05 Troponin T Hi Sens 6Hr 47.86 ng/L (0-10) H 06/03/23 01:47 Troponin T Hi Sens 6Hr Delta -1.14 ng/L (0-12) L 06/03/23 01:47 NT-Pro-B Natriuret Pep 906 pg/mL (0-450) H 06/03/23 01:52 Total Protein 5.4 g/dL (6.6-8.7) L 06/09/23 04:34 Albumin 2.3 g/dL (3.5-5.2) L 06/09/23 04:34 Globulin 3.1 g/dL (1.3-4.6) 06/09/23 04:34 Procalcitonin 0.22 ng/mL (0-0.5) 06/02/23 20:12 Urine Color Dark yellow (Yellow) 06/03/23 00:35 Urine Appearance Cloudy (CLEAR) A 06/03/23 00:35 Urine pH 5 (5-7) 06/03/23 00:35 Ur Specific [place] 1.025 (1.005-1.030) 06/03/23 00:35 Urine Protein 1+ (Negative) H 06/03/23 00:35 Urine Glucose (UA) Norm (Normal) 06/03/23 00:35 Urine Ketones 1+ (Negative) H 06/03/23 00:35 Urine Blood 2+ (Negative) H 06/03/23 00:35 Urine Nitrate Positive (Negative) H 06/03/23 00:35 Urine Bilirubin 1+ (Negative) H 06/03/23 00:35 Urine Urobilinogen 4 mg/dL (Negative) H 06/03/23 00:35 Ur Leukocyte Esterase 2+ (Negative) H 06/03/23 00:35 Urine RBC 5-10 /hpf (0-2) H 06/03/23 00:35 Urine WBC 25-40 /hpf (0-5) H 06/03/23 00:35 Ur Squamous Epith Cells 0-4 /hpf (0-5) H 06/03/23 00:35 Amorphous Sediment Not Reportable 06/03/23 00:35 Urine Bacteria 4+ /hpf (NONE) H 06/03/23 00:35 Urine Mucus 2+ /hpf 06/03/23 00:35 Vancomycin Trough 8.0 ug/mL (10-15) L 06/07/23 12:36 Random Vancomycin 15.0 ug/mL (20.0-40.0) L 06/06/23 20:10 SARS-CoV-2 Ag (Rapid) negative (Negative) 06/10/23 10:30 MRSA (PCR) Detected (NOT DETECTED) A 06/06/23 22:30 Vitals Last Vital Signs Temp 97.6 F 06/09/23 20:48 Pulse 69 06/09/23 15:30 Resp 16 06/10/23 12:43 BP 118/76 06/10/23 12:43 Pulse Ox 98 06/10/23 12:43 O2 Del Method Room Air 06/08/23 22:00 O2 Flow Rate 2 06/04/23 04:00 Discharge Plan Discharge Patient Disposition: Home Condition: Fair Prescriptions: New midodrine 5 mg Tablet 10 mg PO TID 30 Days Qty: 180 0RF Continued bisacodyl 10 mg Suppository 10 mg UT Q12H PRN (Reason: Constipation) bisacodyl 5 mg Tablet,Delayed Release (Dr/Ec) 10 mg PO DAILY PRN (Reason: Constipation) docusate sodium 100 mg Tablet 200 mg PO DAILY PRN (Reason: Constipation) lorazepam 0.5 mg Tablet 0.5 mg PO DAILY lovastatin 10 mg Tablet 5 mg PO DAILY magnesium hydroxide [Milk of Magnesia] 400 mg/5 mL Suspension 30 ml PO DAILY PRN (Reason: Constipation) omeprazole 20 mg Capsule,Delayed Release(Dr/Ec) 20 mg PO QAM acetaminophen 325 mg Tablet 650 mg PO Q4H PRN (Reason: Pain) lactase [Lactaid] 3,000 unit Tablet 3,000 unit PO TID nystatin [Nystop] 100,000 unit/gram powder See Rx Instructions .ROUTE .COMPLEX Rx Instructions: 1 applic topically under right breast twice daily (clean affected area with soap and water dry area then apply nystatin powder) metformin 500 mg tablet extended release 24 hr 1,000 mg PO BEDTIME Januvia 50 mg tablet 50 mg PO DAILY morphine concentrate 100 mg/5 mL (20 mg/mL) Solution See Rx Instructions .ROUTE .COMPLEX Rx Instructions: give 0.25ml po every 2 hours as needed for moderate to severe pain potassium chloride 20 mEq tablet,ER particles/crystals 20 meq PO DAILY Phospha 250 Neutral 250 mg Tablet 1 tab PO DAILY lorazepam 2 mg/mL Concentrate See Rx Instructions .ROUTE .COMPLEX Rx Instructions: give 0.25ml po every 2 hours as needed for anxiety or agitation food supplemt, lactose-reduced Liquid See Rx Instructions .ROUTE .COMPLEX Rx Instructions: give 90ml po tid insulin aspart U-100 [Novolog FlexPen U-100 Insulin] 100 unit/mL (3 mL) insulin pen See Rx Instructions .ROUTE .COMPLEX Rx Instructions: inject subcutaneously per ss before meals 150-200=0 units 201-250=2 units 251-300=4 units 301-350=6 units 351-400=8 units if under 70 or over 400 with 3 consecutive checks or symptomatic call dr Pereira FlexPen 100 unit/mL (3 mL) insulin pen 17 unit SUBCUT BEDTIME amino acids-protein hydrolys 15-101 gram-kcal/30 mL Liquid See Rx Instructions .ROUTE .COMPLEX Rx Instructions: give 30 ml po one time a day for promote wound healing Discharge Orders: Discharge Order (Routine); Ordered 06/10/23 Ordered By: Stephanie Durán Referrals: Shikha Campbell MD [Primary Care Provider] - ([facility] to provide care) [facility] [Outside] (PEJ placement ) Discharge Diet: As Directed Discharge Activity: Resume usual activity Patient Instructions: Aspiration, Midodrine (By mouth), Urinary Tract Infection in Women (DC), Dementia (GEN), Aspiration Pneumonia (DC), Sepsis (DC), Type 2 Diabetes Management for Adults (DC), Opioid Safety Discharge Attestations Time Spent in Discharge Care*: greater than 30 min Quality Metrics Clinical Quality Measures [ No reported AMI, CVA or VTE this stay] Coding Level of Care Code Acute Code for g Fwd Diagnoses Acute renal failure N17.9 Acute renal failure type: unspecified Acute hypernatremia E87.0 Acute dehydration E86.0 Altered mental status R41.82 Altered mental status type: unspecified Hypophosphatemia E83.39 Hypokalemia E87.6 Septic shock A41.9; R65.21 Severe dementia F03.C0 Severe protein-calorie malnutrition E43 Acute renal insufficiency N28.9 LELE (acute kidney injury) N17.9 Dehydration E86.0 Fall W19.XXXA Pneumonia J18.9 Laterality: right Lung location: lower lobe of lung Pneumonia type: due to unspecified organism UTI (urinary tract infection) N39.0
[2023-06-10 16:07] VITALS: BP 118/76
[2023-06-10 17:28] LABS: Glucose Point of Care 196 mg/dL (70-110)
--- NOTE | 2023-06-10 18:38 | PC.NURSE ---
Discharge Note Patient discharged to [facility] via EMS transport accompanied by EMS transport. Discharge instructions reviewed with patient and/or employer relations representative. Mobile pharmacy medications and/or prescriptions provided. Belongings/home medications returned.
[2023-06-10 18:39] VITALS: BP 118/76
== END 2023-06-10 18:42 | disposition skilled nursing facility (03) | DRG 871 ==
LOC: ER 21:41 → ICU 23:20
PROVIDERS: Hospitalist; Internal Medicine; Admitting Provider Family Medicine; Emergency Provider Emergency Medicine; PCP Family Medicine; Visit Provider Student in an Organized Health Care Education/Training Program
DX: A41.9 Sepsis, unspecified organism (principal); E43 Unspecified severe protein-calorie malnutrition; G93.41 Metabolic encephalopathy; R65.21 Severe sepsis with septic shock; J69.0 Pneumonitis due to inhalation of food and vomit; N17.9 Acute kidney failure, unspecified; E87.0 Hyperosmolality and hypernatremia; E87.20 Acidosis, unspecified; N39.0 Urinary tract infection, site not specified; Z68.1 Body mass index [BMI] 19.9 or less, adult; E86.0 Dehydration; B96.20 Unspecified Escherichia coli [E. coli] as the cause of diseases classified elsewhere; I70.1 Atherosclerosis of renal artery; K44.9 Diaphragmatic hernia without obstruction or gangrene; Z91.81 History of falling; Z51.5 Encounter for palliative care; E87.6 Hypokalemia; E83.39 Other disorders of phosphorus metabolism; E11.9 Type 2 diabetes mellitus without complications; E53.8 Deficiency of other specified B group vitamins; F32.A Depression, unspecified; Z66 Do not resuscitate; Z86.73 Personal history of transient ischemic attack (TIA), and cerebral infarction without residual deficits; F03.C0 Unspecified dementia, severe, without behavioral disturbance, psychotic disturbance, mood disturbance, and anxiety; Z53.09 Procedure and treatment not carried out because of other contraindication
CPT/HCPCS: 36415; 36416; 36573; 36592; 51702; 71045; 74176; 80048; 80053; 80202; 81001; 82962; 83036; 83605; 83735; 83880; 84100; 84145; 84295; 84484; 85025; 87040; 87077; 87086; 87186; 87426; 87641; 92523; 92610; 93005; 94664; 96361; 96372; 96374; 96376; 99285; A4222; C1751; C9113; J0283; J0696; J1650; J1815; J2060; J2185; J2270; J2543; J3370; J3475; J3480; J3490; J7030; J7050; J7060; J7070; Q3014

== ENCOUNTER → 2023-07-27 09:55 | Outpatient (BNVA) | payer MEDICARE, MEDICAID, SELFPAY | PROVIDERS: PCP Family Medicine; Visit Provider Podiatrist Foot & Ankle Surgery | DX: B35.1 Tinea unguium (principal); I73.9 Peripheral vascular disease, unspecified; M20.41 Other hammer toe(s) (acquired), right foot; M20.42 Other hammer toe(s) (acquired), left foot; G62.9 Polyneuropathy, unspecified; L89.609 Pressure ulcer of unspecified heel, unspecified stage; E11.42 Type 2 diabetes mellitus with diabetic polyneuropathy; L89.619 Pressure ulcer of right heel, unspecified stage; Z79.4 Long term (current) use of insulin; Z79.84 Long term (current) use of oral hypoglycemic drugs | CPT/HCPCS: 11721 ==